=== PATIENT | female | born 1945 | race Caucasian/White ===

== ENCOUNTER 2020-11-01 09:09 | Outpatient (CLI) | payer MEDICARE, MEDICAID, SELFPAY | END 2020-11-01 09:10 | disposition home or self-care (01) | LOC: ANHBWCAUD 09:12 | DX: H91.93 Unspecified hearing loss, bilateral (principal) | CPT/HCPCS: 92557; 92567 ==

== ENCOUNTER 2020-12-06 09:12 | Outpatient (RCR) | payer MEDICAID, SELFPAY | END 2021-03-06 23:59 | disposition home or self-care (01) | LOC: ANHBWCAUD 09:12 | DX: Z46.1 Encounter for fitting and adjustment of hearing aid (principal) | CPT/HCPCS: V5160; V5260 ==

== ENCOUNTER 2021-12-23 09:21 | Outpatient (CLI) | payer MEDICARE, MEDICAID, SELFPAY | END 2021-12-23 09:22 | disposition home or self-care (01) | PROVIDERS: Visit Provider Family Medicine | DX: H90.3 Sensorineural hearing loss, bilateral (principal) | CPT/HCPCS: 92557; 92567 ==

== ENCOUNTER 2022-03-20 10:00 | Outpatient (RCR) | payer MEDICARE, MEDICAID, SELFPAY | END 2022-05-04 23:59 | disposition home or self-care (01) | LOC: ANHBWCAUD 10:00 | PROVIDERS: PCP Family Medicine; Visit Provider Family Medicine | DX: Z46.1 Encounter for fitting and adjustment of hearing aid (principal) | CPT/HCPCS: 99199 ==

== ENCOUNTER 2022-12-29 12:55 | Outpatient (CLI) | payer MEDICARE, MEDICAID, SELFPAY | END 2022-12-29 12:56 | disposition home or self-care (01) | LOC: ANHBWCAUD 12:58 | PROVIDERS: PCP Family Medicine; Visit Provider Family Medicine | DX: H90.3 Sensorineural hearing loss, bilateral (principal) | CPT/HCPCS: 92557; 92567 ==

== ENCOUNTER 2024-01-19 09:03 | Outpatient (CLI) | payer MEDICARE, MEDICAID, SELFPAY | END 2024-01-19 09:04 | disposition home or self-care (01) | LOC: ANHBWCAUD 09:04 | PROVIDERS: PCP Family Medicine; Visit Provider Family Medicine | DX: H91.93 Unspecified hearing loss, bilateral (principal) | CPT/HCPCS: 99199 ==

== ENCOUNTER 2024-03-08 08:28 | Outpatient (CLI) | payer MEDICARE, MEDICAID, SELFPAY | END 2024-03-08 08:29 | disposition home or self-care (01) | LOC: ANHBWCAUD 08:29 | PROVIDERS: PCP Family Medicine; Visit Provider Family Medicine | DX: H90.3 Sensorineural hearing loss, bilateral (principal); H61.23 Impacted cerumen, bilateral | CPT/HCPCS: 92557; 92567 ==

== ENCOUNTER 2025-03-13 09:03 | Outpatient (CLI) | payer MEDICARE, MEDICAID, SELFPAY ==
--- OUTSIDE RECORDS SUMMARY | 2025-03-13 09:15 | XMS_ITS | Referral Summary ---
Author Organization [facility] Address [address] [place] [address] Care Team Providers Care Business Process Engineer Name Role Phone Matthew Bansal MD Unavailable Norma Osorio NP Unavailable [phone] Allergies Active Allergy Reactions Criticality Noted Date Comments Lactose Medications amLODIPine (NORVASC) 10 mg tablet 1 Active UNABLE TO FIND Ear drops 6.5% qd Active escitalopram (LEXAPRO) 10 mg tablet Take 1 tablet (10 mg total) by mouth daily Active fluticasone propionate (FLONASE) 50 mcg/actuation nasal spray Administer 1 spray into each nostril daily Active dextromethorpha n-quiNIDine (NUEDEXTA) 20-10 mg capsuleIndicati ons:Pseudobulba r Affect 1 capsule Active valsartan-hydro chlorothiazide (DIOVAN-HCT) 320-25 mg per tablet Take 1 tablet by mouth daily Active cholecalciferol (VITAMIN D-3) 2000 unit capsule 1 capsule (2,000 Units total) Active acetaminophen (TYLENOL) 500 mg tabletIndicatio ns:Fever,Pain Take 1 tablet (500 mg total) by mouth every 4 (four) hours as needed for pain 30 tablet 2 2 Active guaiFENesin (ROBITUSSIN) syrup 100 mg/5 mLIndications:C ough Take 5 mL (100 mg total) by mouth 4 (four) times a day as needed for cough 120 mL 2 Active Additional Information Patient not taking.Reported on 08/17/2023 bacitracin-neom ycin-polymyxin B (NEOSPORIN) 400-3.5-5,000 jbnf-cb-hebm ointment in packetIndicatio ns:Minor Bacterial Skin Infections Apply pea size amount to affected area twice daily. 1 packet 1 2 Active Oyster Shell Calcium-Vit D3 500 mg-5 mcg (200 unit) per tablet 3 Active methIMAzole (TAPAZOLE) 5 mg tablet Take 5 mg 5 days a week Wednesday ,Wednesday, and wednesday tablet 3 3 Active Active Problems Problem Noted Date Diagnosed Date Flat foot 08/17/2023 Assessment & Plan (08/17/2023 12:13 PM INSTRUCTIONAL FACILITATOR): Bilateral feet, R>L. When walking without shoes her ankles invert, gait is steady despite this defect. No marked weakness on exam. Patient would benefit from custom shoe orthotics. Will fax OV over to [facility] in [place] who has already taken impressions of both feet. Medicare annual wellness visit, subsequent 07/30 Assessment & Plan (07/30/2023 12:01 PM CDT): Annual Medicare wellness exam completed today. All questionnaires completed and reviewed with patient. No Concerns. BMI:29.4 Overweight Dietary and exercise recommendations given Routine screening labs Reviewed Preventative screening ordered:May need Colon CA screen. Awaiting response Routine vaccines recommended: Flu, RSV, COVID booster Medications refilled Referrals placed prn Stage 3b chronic kidney disease 01/26/2023 Assessment & Plan (07/30/2023 12:02 PM CDT): Chronic and stable. Will continue to avoid NSAID use. Will continue to monitor this condition routinely and f/u with nephrology as instructed Assessment & Plan (01/26/2023 11:06 AM CDT): Chronic and stable. Will continue to avoid NSAID use. Will continue to monitor this condition routinely Recurrent major depressive disorder 01/26/2023 Assessment & Plan (01/26/2023 11:06 AM CDT): Chronic and stable. Will reach out to [facility] to determine if medication dosage was adjusted as this may be contributing to fatigue. Continue Lexapro 10 mg daily Fatigue 01/26/2023 Assessment & Plan (01/26/2023 11:08 AM CDT): Recent. Routine labs reviewed (thyroid normal, A1c 5.7, CBC stable) patient denies depressed mood or issues with sleep. Will continue to monitor for now. Recommend becoming involved with exercise activities at [facility] Lymphedema 07/22/2022 Assessment & Plan (07/22/2022 12:56 PM CDT): Chronic and stable. Continue with compression hose during the day. Will monitor routinely Essential hypertension 01/21/2022 Assessment & Plan (08/17/2023 12:14 PM INSTRUCTIONAL FACILITATOR): BP stable in office today on current therapy. No acute findings on exam. Continue current regimen and low salt diet. Assessment & Plan (07/30/2023 12:01 PM CDT): Chronic and stable. At goal < 130/80. Continue current medications and will monitor Assessment & Plan (01/26/2023 11:05 AM CDT): Chronic and stable. At goal < 130/80. Continue current medications and will monitor Assessment & Plan (07/22/2022 12:54 PM CDT): Chronic. SBP mildly elevated today. WNL during past visits. Goal <130/80. Will continue to monitor at f/u and adjust HTN medication if needed Assessment & Plan (01/21/2022 1:02 PM CDT): Chronic and stable. Continue current medication. Will continue to monitor Class 2 severe obesity due t o excess calories with serious comorbidity and body mass index (BMI) of 35.0 to 35.9 in adult 01/21/2022 Assessment & Plan (01/21/2022 1:05 PM CDT): Medicare wellness questions completed today and reviewed with patient. No Concerns. BMI: 35 Dietary and exercise recommendations given Mixed hyperlipidemia 01/21/2022 Assessment & Plan (07/22/2022 12:53 PM CDT): Chronic. Routine labs ordered. Will follow up lab results. No history of MD/Stroke. Will continue with lifestyle modifications. Assessment & Plan (01/21/2022 1:04 PM CDT): Chronic. Routine labs ordered. No history of MD/Stroke. Not recommended to start statin at this age. Will continue with lifestyle modifications. Counseled on diet/exercise. Nonintractable episodic headache 01/21/2022 Assessment & Plan (01/21/2022 1:07 PM CDT): Recurrent headache with no associated symptoms. PE WNL today -Trial Tylenol 500mg q6h prn symptoms -Consider [facility] log to help track frequency of symptoms - F/u if worsen Alzheimer's dementia without behavioral disturba nce 04/09/2021 Bradycardia 03/19/2021 Weight gain 08/19/2020 Assessment & Plan (08/19/2020 12:20 PM INSTRUCTIONAL FACILITATOR): Diet and exercise 1800 calorie diet ordered Depression 01/18/2019 Mild intellectual disability 01/18/2019 Vitamin D deficiency 11/17/2017 Assessment & Plan (07/30/2023 12:01 PM CDT): Chronic and stable. Continue current medication. Lab reviewed. Will continue to monitor Assessment & Plan (11/11/2022 2:13 PM INSTRUCTIONAL FACILITATOR): Chronic stable problem. Continue same dose vitamin D replacement. Assessment & Plan (07/22/2022 12:53 PM CDT): Chronic and stable. Continue current medication. Will obtain lab and adjust meds prn Assessment & Plan (01/21/2022 1:02 PM CDT): Chronic and stable. Continue current medication. Will obtain lab and adjust meds prn Assessment & Plan (08/20/2021 12:14 PM INSTRUCTIONAL FACILITATOR): Will check vit D Will advise on changes to vit D doses if indicated Assessment & Plan (02/17/2021 12:55 PM CDT): Continue 1000 international units daily Assessment & Plan (02/22/2020 11:07 AM CDT): Continue Ca and vit D at current dose, bid Assessment & Plan (05/27/2018 10:34 AM CDT): Continue Calcium and vit D at current dose. Assessment & Plan (11/17/2017 10:34 AM INSTRUCTIONAL FACILITATOR): Check 25 OH vit D Adjust dose of vit D if indicated Subclinical hyperthyroidism 07/07/2017 Assessment & Plan (07/30/2023 12:01 PM CDT): Chronic and stable. Patient will continue to follow with endocrinology for management of this condition Assessment & Plan (01/26/2023 11:06 AM CDT): Chronic and stable. Patient will continue to follow with endocrinology for management of this condition Assessment & Plan (11/11/2022 2:14 PM INSTRUCTIONAL FACILITATOR): Chronic stable problem, update TFTs today. Will call with medication changes if needed. Assessment & Plan (07/22/2022 12:53 PM CDT): Chronic and stable. Continue current medication. Will obtain lab and adjust meds prn Assessment & Plan (01/21/2022 1:04 PM CDT): Chronic and stable. Continue current medication. Will obtain lab and adjust meds prn Assessment & Plan (08/20/2021 12:02 PM INSTRUCTIONAL FACILITATOR): Check TFT's Will adjust dose of Tapazole if indicated. Assessment & Plan (02/17/2021 12:15 PM CDT): Continue Tapazole, 5 mg 4 days a week, Wednesday thru . Assessment & Plan (08/19/2020 12:19 PM INSTRUCTIONAL FACILITATOR): Continue Tapazole 5 mg 4 days a week Assessment & Plan (02/22/2020 11:06 AM CDT): Continue Tapazole 5 mg 4 days a week - Assessment & Plan (08/03/2019 11:53 AM CDT): Continue Tapazole 5 mg 4 days a week Assessment & Plan (12/05/2018 12:54 PM INSTRUCTIONAL FACILITATOR): Continue with tapazole 5 mg 4 days a week Assessment & Plan (05/27/2018 10:32 AM CDT): Lower Tapazole to 5 mg 4 days a week, Wednesday thru . Assessment & Plan (11/17/2017 10:28 AM INSTRUCTIONAL FACILITATOR): Will check TFT's today Will call if any changes on Tapazole are indicated Follow up in 6 m, Assessment & Plan (07/07/2017 12:13 PM CDT): Check TFT;s Adjust dose of Tapazole accordingly Recheck TFT's in 2 months Osteopenia 07/07/2017 Assessment & Plan (11/11/2022 2:14 PM INSTRUCTIONAL FACILITATOR): Chronic stable problem. Staff will check on her last bone density scan. Assessment & Plan (08/20/2021 12:02 PM INSTRUCTIONAL FACILITATOR): Continue with vit D and Calcium supplementation Weight bearing exercise Fall precautions Assessment & Plan (02/17/2021 12:15 PM CDT): Stop Fosamax Assessment & Plan (08/19/2020 12:19 PM INSTRUCTIONAL FACILITATOR): Continue Fosamax DEXA requested Assessment & Plan (02/22/2020 11:07 AM CDT): Some improvement Continue Fosamax once a week Assessment & Plan (08/03/2019 11:52 AM CDT): Continue Fosamax Bone density requested Assessment & Plan (12/05/2018 12:55 PM INSTRUCTIONAL FACILITATOR): On Fosamax Adequate Vit D and Ca intake recommended. Will schedule bone density Assessment & Plan (05/27/2018 10:34 AM CDT): Continue Fosamax 70 mg once a week Fall precautions Daily walks 15-30 min Continue current Calcium and vit D supplements. Assessment & Plan (11/17/2017 10:34 AM INSTRUCTIONAL FACILITATOR): Continue Fosamax Fall precautions Vit D/ Ca intake Will check vit D Levels. Assessment & Plan (07/07/2017 12:10 PM CDT): Continue Fosamax CaC03 , 500 mg bid Vit D, 1000 IU daily Check 25 OH vit D levels Resolved Problems Problem Noted Date Diagnosed Date Resolved Date Subclinical hypothyroidism 01/21/2022 0 01/21/2022 Immunizations Immunization Administration Dates Next Due Influenza, Quadrivalent, Spl it, Preservative Free, Intramuscular 08/12/2020 Influenza, Trivalent, IM (MDV) 07/24/2017 Influenza, Unspecified 08/05/2023 Pfizer Sars-Cov-2 Bivalent Vaccination (12+ YRS) 07/09/2022 Tdap 09/22/2019,10/11/2012 Social History Tobacco Use Types Packs/Day Years Used Date Smoking Tobacco: Never Smokeless Tobacco: Never Tobacco Cessation:Counseling Given: Not Answered Alcohol Use Standard Drinks/Week Comments No 0 (1 standard drink = 0.6 oz pur e alcohol) PHQ-2 Answer Date Recorded PHQ-2 Total Score (If total score is 3 or more points, staff should administer the PHQ-9) 0 07/30/2023 Personal Safety Answer Date Recorded Getting School Help Needed Not on file 09/21 Comments Unknown Sex and Gender Information Value Date Recorded Sex Assigned at Not on file Legal Sex Female 3:53 AM INSTRUCTIONAL FACILITATOR Gender Identity Not on file Sexual Orientation Not on file Last Filed Vital Signs Vital Sign Reading Time Taken Comments Blood Pressure 112/60 08/17/2023 10:56 AM INSTRUCTIONAL FACILITATOR Pulse 60 08/17/2023 10:56 AM INSTRUCTIONAL FACILITATOR Temperature 36.4 C (97.5 F) 08/17/2023 10:56 AM INSTRUCTIONAL FACILITATOR Respiratory Rate 18 08/17/2023 10:56 AM INSTRUCTIONAL FACILITATOR Oxygen Saturation 97% 08/17/2023 10:56 AM INSTRUCTIONAL FACILITATOR Inhaled Oxygen Concentration - - Weight 74.8 kg (165 lb) 08/17/2023 10:56 AM INSTRUCTIONAL FACILITATOR Height 160 cm (5' 2.99) 07/30/2023 11:07 AM CDT Body Mass Index 29.24 07/30/2023 11:07 AM CDT Plan of Treatment Not on file Procedures Procedure Name Priority Date/Time Associated Diagnosis Comments DEXA AXIAL SKELETON BONE DENSITY 1 OR MORE SITES Schedule Routine, Read Routine (OP Routine) 02/18/2023 10:10 AM CDT Vitamin D deficiency Osteopenia of left hip SCREENING MAMMOGRAM BILATERAL W DANIEL Schedule Routine, Read Routine (OP Routine) 05/08/2019 9:39 AM CDT Encounter for screening mammogram for malignant neoplasm of breast COLONOSCOPY REPORT 03/03/2016 from Last 3 Months or Most Recently Relevant to Health Maintenance Results * Dexa Axial Skeleton Bone Density 1 or 2 Site (02/18/2023 10:10 AM CDT) Anatomical Region Laterality Modality Body N/A Other 02/18/2023 9:40 PM CDT Narrative 02/18/2023 9:42 PM CDT EXAM DESCRIPTION: DEXA AXIAL SKELETON BONE DENSITY 1 OR MORE SITES REASON FOR STUDY: 77 y/o year old F with given history of screening. Postmenopausal Side Boss/Model: [employer] (S/N [id number]) CLINICAL INFORMATION: Current height: 61 inches Maximum height: 61 inches Weight: 179 pounds Risk factors: Postmenopausal, adult fracture COMPARISON: 02/01/2017 FINDINGS: AP LUMBAR SPINE L1-L4: Total BMD is 1.046 g/cm2 T-score is 0.0 Dissimilar scan types or analysis methods precludes assessment for calculating a significant change. LEFT HIP: Total BMD is 0.738 g/cm2 T-score is -1.7 Dissimilar scan types or analysis methods precludes assessment for calculating a significant change. Femoral neck BMD is 0.717 g/cm2 T-score is -1.2 FRAX: 10 year risk for a major osteoporotic fracture is 15 %, 10 year risk for a hip fracture is 2.3 % IMPRESSION: Low Bone Mass. REFERENCE: Bone mineral density: Normal (T-score above or = -1.0) Low bone mass (T-score between -1.0 and -2.5) replaces the previously used term osteopenia Osteoporosis (T-score = or below -2.5) Medical evaluation for secondary causes of low bone mineral density may be appropriate. FRAX is a World Health Organization validated fracture risk assessment tool that calculates a person's 10 year probability of a major osteoporosis related fracture and hip fracture. According to the National Osteoporosis Foundation guidelines, postmenopausal women and men age 50 or older with low bone mass and a 10 year probability of a major osteoporosis related fracture = or greater than 20% or a 10 year probability of a hip fracture = or greater than 3% should be considered for treatment. For further information, including treatment recommendations, please refer to the 2019 ISCD Official Positions (http://www.iscd.org) and the NOF's Clinician's Guide to Prevention and Treatment of Osteoporosis (http://www.nof.org/professionals/clinical-guidelines) THIS IS AN ELECTRONICALLY VERIFIED FINAL REPORT 02/18/2023 9:42 PM - Electronically signed by Jamison Nolasco M.D. MF: CHENG Report ID: [id number] Reading Location: [place] [address] Procedure Note Jamison Nolasco MD - 02/18/2023 EXAM DESCRIPTION: DEXA AXIAL SKELETON BONE DENSITY 1 OR MORE SITES REASON FOR STUDY: 77 y/o year old F with given history of screening. Postmenopausal Side Boss/Model: [employer] (S/N [id number]) CLINICAL INFORMATION: Current height: 61 inches Maximum height: 61 inches Weight: 179 pounds Risk factors: Postmenopausal, adult fracture COMPARISON: 02/01/2017 FINDINGS: AP LUMBAR SPINE L1-L4: Total BMD is 1.046 g/cm2 T-score is 0.0 Dissimilar scan types or analysis methods precludes assessment for calculating a significant change. LEFT HIP: Total BMD is 0.738 g/cm2 T-score is -1.7 Dissimilar scan types or analysis methods precludes assessment for calculating a significant change. Femoral neck BMD is 0.717 g/cm2 T-score is -1.2 FRAX: 10 year risk for a major osteoporotic fracture is 15 %, 10 year risk for ahip fracture is 2.3 % IMPRESSION: Low Bone Mass. REFERENCE: Bone mineral density: Normal (T-score above or = -1.0) Low bone mass (T-score between -1.0 and -2.5) replaces thepreviously used term osteopenia Osteoporosis (T-score = or below -2.5) Medical evaluation for secondary causes of low bone mineral density may be appropriate. FRAX is a World Health Organization validated fracture risk assessmenttool that calculates a person's 10 year probability of a major osteoporosisrelated fracture and hip fracture. According to the National OsteoporosisFoundation guidelines, postmenopausal women and men age 50 or older with low bonemass and a 10 year probability of a major osteoporosis related fracture = or greater than 20% or a 10 year probability of a hip fracture = or greaterthan 3% should be considered for treatment. For further information, including treatment recommendations, please referto the 2019 ISCD Official Positions (http://www.iscd.org) and the NOF's Clinician's Guide to Prevention and Treatment of Osteoporosis (http://www.nof.org/professionals/clinical-guidelines) THIS IS AN ELECTRONICALLY VERIFIED FINAL REPORT 02/18/2023 9:42 PM - Electronically signed by Jamison Nolasco M.D. MF: CHENG Report ID: [id number] Reading Location: [id number] Evette Melo MD IMG DXA PROCEDURES Final Res ult * Screening Mammogram Bilateral W Daniel (05/08/2019 9:39 AM CDT) Anatomical Region Laterality Modality Breast Bilateral Mammography 05/08/2019 9:42 AM CDT Impressions 05/08/2019 9:45 AM CDT 1. NO DEFINITIVE MAMMOGRAPHIC EVIDENCE OF MALIGNANCY 2. ANNUAL FOLLOW-UP RECOMMENDED BI-RADS 2 Electronically signed by: Emanuel Peterson M.D. Narrative 05/08/2019 9:45 AM CDT SCREENING MAMMOGRAM BILATERAL W DANIEL HISTORY: Encounter for screening mammogram for malignant neoplasm of breast TECHNIQUE: 2 views of each breast were obtained with bilateral breast tomosynthesis. COMPARISON: Dating back to 03/06/2015 FINDINGS: The breasts are composed of scattered fibroglandular densities. No suspicious mass or calcification is seen to suggest mammographic evidence of malignancy. There are bilateral benign breast calcifications. Digital technology was employed plus computer aided detection software (R2) was utilized in interpretation of these images. This facility utilizes a reminder system to notify patient's of yearly mammograms. Trupti Spence MD IMG MAMMO PROCEDURES Final R esult * COLONOSCOPY REPORT (03/03/2016) Anatomical Region Laterality Modality Other Narrative 03/03/2016 Ordered by an unspecified provider. Historical Provider GI PROCEDURE ORDERABLES F inal Result from Last 3 Months or Most Recently Relevant to Health Maintenance Insurance MEDICARE IDNM IDPA MEDICARE Care Teams Business Process Engineer Relationship Specialty [place] [address] [address] [facility] [address] [place] [address] Consulting Physician Endocrinology Diabetes & Metabolism 12/05/18 [place] [address] [address] [facility] [address] [place] [address] Nurse Practitioner Internal Medicine 12/05/18
--- OUTSIDE RECORDS SUMMARY | 2025-03-13 09:15 | XMS_ITS | Clinical Summary ---
Author Organization [facility] Address [address] [place] [address] Care Team Providers Care Mineralogy Teacher Name Role Phone Matthew Bansal MD Unavailable Norma Osorio NP Unavailable [phone] Allergies Active Allergy Reactions Criticality Noted Date [...] on 08/17/2023 bacitracin-neom ycin-polymyxin B (NEOSPORIN) 400-3.5-5,000 wjhy-uf-prol ointment in packetIndicatio ns:Minor Bacterial Skin Infections [...] 08/17/2023 Assessment & Plan (08/17/2023 12:13 PM DROP WIRE HANGER): Bilateral feet, R>L. When walking without shoes her ankles invert, gait is steady despite this defect. No marked weakness on exam. Patient would benefit from custom shoe orthotics. Will fax OV over to [facility] in [place] who has already taken impressions of both [...] Chronic and stable. Will reach out to [facility] to determine if medication dosage was adjusted as this may be contributing to fatigue. Continue Lexapro 10 mg daily Fatigue 01/26/2023 Assessment & Plan (01/26/2023 11:08 AM CDT): Recent. Routine labs reviewed (thyroid normal, A1c 5.7, CBC stable) patient denies depressed mood or issues with sleep. Will continue to monitor for now. Recommend becoming involved with exercise activities at [facility] Lymphedema 07/22/2022 Assessment & Plan (07/22/2022 12:56 PM CDT): Chronic and stable. Continue with compression hose during the day. Will monitor routinely Essential hypertension 01/21/2022 Assessment & Plan (08/17/2023 12:14 PM DROP WIRE HANGER): BP stable in office today on current [...] follow up lab results. No history of NM/Stroke. Will continue with lifestyle modifications. Assessment & Plan (01/21/2022 1:04 PM CDT): Chronic. Routine labs ordered. No history of NM/Stroke. Not recommended to start statin at this [...] 08/19/2020 Assessment & Plan (08/19/2020 12:20 PM DROP WIRE HANGER): Diet and exercise 1800 calorie diet ordered Depression 01/18/2019 Mild intellectual disability 01/18/2019 Vitamin D deficiency 11/17/2017 Assessment & Plan (07/30/2023 12:01 PM CDT): Chronic and stable. Continue current medication. Lab reviewed. Will continue to monitor Assessment & Plan (11/11/2022 2:13 PM DROP WIRE HANGER): Chronic stable problem. Continue same dose vitamin D replacement. Assessment & Plan (07/22/2022 12:53 PM CDT): Chronic and stable. Continue current medication. Will obtain lab and adjust meds prn Assessment & Plan (01/21/2022 1:02 PM CDT): Chronic and stable. Continue current medication. Will obtain lab and adjust meds prn Assessment & Plan (08/20/2021 12:14 PM DROP WIRE HANGER): Will check vit D Will advise on changes to vit D doses if indicated Assessment & Plan (02/17/2021 12:55 PM CDT): Continue 1000 international units daily Assessment & Plan (02/22/2020 11:07 AM CDT): Continue Ca and vit D at current dose, bid Assessment & Plan (05/27/2018 10:34 AM CDT): Continue Calcium and vit D at current dose. Assessment & Plan (11/17/2017 10:34 AM DROP WIRE HANGER): Check 25 OH vit D Adjust dose [...] condition Assessment & Plan (11/11/2022 2:14 PM DROP WIRE HANGER): Chronic stable problem, update TFTs today. Will call with medication changes if needed. Assessment & Plan (07/22/2022 12:53 PM CDT): Chronic and stable. Continue current medication. Will obtain lab and adjust meds prn Assessment & Plan (01/21/2022 1:04 PM CDT): Chronic and stable. Continue current medication. Will obtain lab and adjust meds prn Assessment & Plan (08/20/2021 12:02 PM DROP WIRE HANGER): Check TFT's Will adjust dose of Tapazole if indicated. Assessment & Plan (02/17/2021 12:15 PM CDT): Continue Tapazole, 5 mg 4 days a week, Wednesday thru . Assessment & Plan (08/19/2020 12:19 PM DROP WIRE HANGER): Continue Tapazole 5 mg 4 days a week Assessment & Plan (02/22/2020 11:06 AM CDT): Continue Tapazole 5 mg 4 days a week - Assessment & Plan (08/03/2019 11:53 AM CDT): Continue Tapazole 5 mg 4 days a week Assessment & Plan (12/05/2018 12:54 PM DROP WIRE HANGER): Continue with tapazole 5 mg 4 days a week Assessment & Plan (05/27/2018 10:32 AM CDT): Lower Tapazole to 5 mg 4 days a week, Wednesday thru . Assessment & Plan (11/17/2017 10:28 AM DROP WIRE HANGER): Will check TFT's today Will call if any changes on Tapazole are indicated Follow up in 6 m, Assessment & Plan (07/07/2017 12:13 PM CDT): Check TFT;s Adjust dose of Tapazole accordingly Recheck TFT's in 2 months Osteopenia 07/07/2017 Assessment & Plan (11/11/2022 2:14 PM DROP WIRE HANGER): Chronic stable problem. Staff will check on her last bone density scan. Assessment & Plan (08/20/2021 12:02 PM DROP WIRE HANGER): Continue with vit D and Calcium supplementation Weight bearing exercise Fall precautions Assessment & Plan (02/17/2021 12:15 PM CDT): Stop Fosamax Assessment & Plan (08/19/2020 12:19 PM DROP WIRE HANGER): Continue Fosamax DEXA requested Assessment & Plan (02/22/2020 11:07 AM CDT): Some improvement Continue Fosamax once a week Assessment & Plan (08/03/2019 11:52 AM CDT): Continue Fosamax Bone density requested Assessment & Plan (12/05/2018 12:55 PM DROP WIRE HANGER): On Fosamax Adequate Vit D and Ca intake recommended. Will schedule bone density Assessment & Plan (05/27/2018 10:34 AM CDT): Continue Fosamax 70 mg once a week Fall precautions Daily walks 15-30 min Continue current Calcium and vit D supplements. Assessment & Plan (11/17/2017 10:34 AM DROP WIRE HANGER): Continue Fosamax Fall precautions Vit D/ Ca [...] Bivalent Vaccination (12+ YRS) 07/09/2022 Tdap 09/22/2019,10/11/2012 Medical History Medical History Date Comments Hypertension Hypertension Hyperlipidemia Hyperlipidemia Depression Depression Social History Tobacco Use Types Packs/Day Years [...] on file Legal Sex Female 3:53 AM DROP WIRE HANGER Gender Identity Not on file Sexual Orientation Not on file Obstetrics History Last Filed Vital Signs Vital Sign Reading Time Taken Comments Blood Pressure 112/60 08/17/2023 10:56 AM DROP WIRE HANGER Pulse 60 08/17/2023 10:56 AM DROP WIRE HANGER Temperature 36.4 C (97.5 F) 08/17/2023 10:56 AM DROP WIRE HANGER Respiratory Rate 18 08/17/2023 10:56 AM DROP WIRE HANGER Oxygen Saturation 97% 08/17/2023 10:56 AM DROP WIRE HANGER Inhaled Oxygen Concentration - - Weight 74.8 kg (165 lb) 08/17/2023 10:56 AM DROP WIRE HANGER Height 160 cm (5' 2.99) 07/30/2023 11:07 AM CDT Body Mass Index 29.24 07/30/2023 11:07 AM CDT Plan of Treatment Health Maintenance Due Date Last Done Comments Hepatitis B Screening 1963 Zoster Vaccine (1 of 2) 1997 Covid-19 Vaccine (2023-11 5 season) 2024 07/09/2022, 08/15/2021, 12/13/2020, Additional history exists Depression Screening 07/30/2024 07/30/2023, 01/21/2022, 08/20/2021, Additional history exists Fall Risk Assessment 07/30/2024 07/30/2023, 01/22/20 22 Well Visit 65+ 07/30/2024 07/30/2023 Influenza Vaccine (Season Ended) 2025 08/05/2023, 08/12/2020, 07/24/2017 Osteoporosis Screening-Bone Density Scan 09/14/2025 09/14/2023, 09/14/2023, 09/14/2023, Additional history exists DTaP/Tdap/Td Vaccine (3 - Td or Tdap) 09/22/2029 09/22/2019, 10/11/2012 Pneumococcal vaccine 65+ Completed 11/27/2009 Colon Cancer Screening-CT Colonography Discontinued 03/03/2016 Colon Cancer Screening-Colonoscopy Discontinued 03/03/2016 Colon Cancer Screening-DNA Stool Discontinued 03/03/20 16 Colon Cancer Screening-FIT Discontinued 03/03/2016 Colon Cancer Screening-FOBT Discontinued 03/03/2016 Colon Cancer Screening-Sigmoidoscopy Discontinued 03/03/2016 Colorectal Cancer Screening Discontinued Hepatitis C Screening Completed 08/18/2023 Breast Cancer Screening-Mammogram Discontinued 04/19/2024, 04/19/2024, 01/20/2023, Additional history exists Procedures Procedure Name Priority Date/Time Associated Diagnosis [...] F with given history of screening. Postmenopausal Cut Out Operator/Model: [employer] SL (S/N [id number]) CLINICAL INFORMATION: Current height: 61 inches Maximum [...] Jamison Nolasco M.D. MF: CHENG Report ID: [id number] Reading Location: [place] [address] Procedure Note Jamison Nolasco MD - 02/18/2023 EXAM DESCRIPTION: DEXA AXIAL SKELETON BONE DENSITY 1 OR MORE SITES REASON FOR STUDY: 77 y/o year old F with given history of screening. Postmenopausal Cut Out Operator/Model: [employer] SL (S/N [id number]) CLINICAL INFORMATION: Current height: 61 inches Maximum [...] Jamison Nolasco M.D. MF: CHENG Report ID: [id number] Reading Location: [place] [address] Evette Melo MD IMG DXA PROCEDURES Final [...] Recently Relevant to Health Maintenance Insurance MEDICARE [employer] [facility] MEDICARE [facility] Address: [address] [address] [place] [address] Care Teams Mineralogy Teacher Relationship Specialty [place] [address] [facility] [address] [address] Consulting Physician Endocrinology Diabetes & Metabolism 12/05/18 [place] [address] [facility] [address] [place] [address] Nurse Practitioner Internal Medicine 12/05/18
--- OUTSIDE RECORDS SUMMARY | 2025-03-13 09:16 | XMS_ITS | Encounter Summary ---
Author Organization [facility] Address [address] [place] [address] Phone Care Team Providers Care Car Starter Name Role Phone Trupti Spence MD Primary Care Provider Provider, Unknown Primary Care Provider Unavaila Evette Persaud MD Primary Care Provider Unavailable Norma May MD Primary Care Provider Meryl Martinez APRN, SCREEN HANDLER Unavailable [phone] Encounter Details Date Type Department Care Team (Late st Contact Info) Description 12/24/2021 Lab Requisition [facility] Laboratory Services [address] [place] [address] Louie Purdy MD [address] [place] [address] [address] [place] [address] Encounter for screening for COVID-19 Social History Tobacco Use Types Packs/Day Years Used Date Smoking Tobacco: Never Smokeless Tobacco: Never Alcohol Use Standard Drinks/Week Comments No 0 (1 standard drink = 0.6 oz pur e alcohol) Comments No Sex and Gender Information Value Date Recorded Sex Assigned at Not on file Legal Sex Female 8:58 PM CDT Gender Identity Not on file Sexual Orientation Not on file documented as of this encounter Plan of Treatment Upcoming Encounters Date Type Department Care Team (Late st Contact Info) Description 07/24/2025 11:00 AM CDT Office Visit [facility] - Cardiology [facility] [address] [place] [address] Liss Jo APRN, SCREEN HANDLER [address] [place] [address] documented as of this encounter Procedures Procedure Name Priority Date/Time Associated Diagnosis Comments SARS-COV-2 BY MOLECULAR Routine 12/24/2021 8:04 AM CDT Encounter for screening for COVID-19 documented in this encounter Results * SARS-COV-2 BY MOLECULAR (12/24/2021 8:04 AM CDT) SARSCOV2 NOT DETECTED (Referen ce Range for this test is Not Detected ) [facility] THERMOFISHER FAST DX 12/24/2021 11:53 PM CDT [facility] Comment:This test was perfor med by a RT-PCR method. Other Non-Phlebotomy Collection / Unknown 12/24/2021 8:04 AM CDT 12/24/2021 1:12 PM CDT Narrative [facility] - 12/24/2021 11:53 PM CDT Authorized Fact Sheets about this test for providers and patients are available at: https://www.fda.gov/medical-devices/wwdjdowph-iadqjybqre-hfpezaq-devices/emergen -us e-authorizations us Louie Purdy MD MICROBIOLOGY - GENERAL ORDERAB LES Final Result [facility] [address] [facility] [place] [address], documented in this encounter Visit Diagnoses Diagnosis Encounter for screening for COVID-19 documented in this encounter Additional Health Concerns Infection Onset Date Last Indicated Resolved Time COVID - 19 07/02/2021 04/08/2022 04/08/2022 11:4 5 PM CDT COVID - 19 Confirmed 04/08/2022 04/08/202204/28/2 022 12:16 AM CDT COVID - 19 04/29/2022 06/03/2022 06/13/2022 12:1 6 AM CDT COVID - 19 06/17/2022 06/17/2022 06/27/2022 12:1 6 AM CDT COVID - 19 07/01/2022 08/19/2022 08/29/2022 12:1 6 AM UNDERWATER PHOTOGRAPHER COVID - 19 10/07/2022 12/23/2022 01/02/2023 12:1 6 AM CDT documented as of this encounter Care Teams Car Starter Relationship Specialty Start Date End Date Trupti Spence MD PCP - General Family Medicine 02/19/16 11/23/22 Provider, Unknown UNKNOWN PCP - General 11/25/22 12/03/22 Evette Melo MD UNKNOWN PCP - General Family Medicine 12/04/22 04/12/24 Norma May MD [address] [place] [address] PCP - General Family Medicine 04/13/24 Meryl Martinez APRN, SCREEN HANDLER [address] [facility], [address] [place] [address] Nurse Practitioner Cardiology 07/25/24 documented as of this encounter
--- OUTSIDE RECORDS SUMMARY | 2025-03-13 09:16 | XMS_ITS | Encounter Summary ---
Author Organization [facility] Address [address] [place] [address] Phone Care Team Providers Care Car Bracer Name Role Phone Trupti Spence MD Primary Care Provider Provider, Unknown Primary Care Provider Unavaila Evette Persaud MD Primary Care Provider Unavailable Norma May MD Primary Care Provider Meryl Martinez APRN, PIT CREW SUPPORT WORKER Unavailable [phone] Encounter Details Date Type Department Care Team (Late st Contact Info) Description 05/20/2022 Lab Requisition [facility] Laboratory Services [address] [place] [address] Louie Purdy MD [address] [place] [address] [address] [place] [address] Encounter for screening for COVID-19 Social History [...] Office Visit [facility] - Cardiology [facility] [address] [place] [address] Liss Jo APRN, PIT CREW SUPPORT WORKER [address] [place] [address] documented as of this encounter Procedures Procedure Name Priority Date/Time Associated Diagnosis Comments SARS-COV-2 BY MOLECULAR Routine 05/20/2022 7:50 AM CDT Encounter for screening for COVID-19 documented in this encounter Results * SARS-COV-2 BY MOLECULAR (05/20/2022 7:50 AM CDT) SARSCOV2 NOT DETECTED (Referen ce Range for this test is Not Detected ) [facility] THERMOFISHER FAST DX 05/21/2022 10:30 AM CDT [facility] Comment:This test was perfor med by a RT-PCR method. Other No Phlebotomy Charged / Unknown 05/20/2022 7:50 AM CDT 05/20/2022 11:18 AM CDT Narrative [facility] - 05/21/2022 10:30 AM CDT Authorized Fact Sheets about this test for providers and patients are available at: https://www.fda.gov/medical-devices/ajohbjodt-emewytfriv-silccox-devices/emergen -us e-authorizations us Louie Purdy MD MICROBIOLOGY - GENERAL ORDERAB LES Final Result [facility] [address] [place] [address], documented in this encounter Visit Diagnoses Diagnosis Encounter for screening for COVID-19 documented in this encounter Additional Health Concerns Infection Onset Date Last Indicated Resolved Time COVID - 19 04/29/2022 06/03/2022 06/13/2022 12:1 6 AM CDT COVID - 19 06/17/2022 06/17/2022 06/27/2022 12:1 6 AM CDT COVID - 19 07/01/2022 08/19/2022 08/29/2022 12:1 6 AM SMALL BUSINESS REPRESENTATIVE COVID - 19 10/07/2022 12/23/2022 01/02/2023 12:1 6 AM CDT documented as of this encounter Care Teams Car Bracer Relationship Specialty Start Date End Date Trupti Spence MD PCP - General Family Medicine 02/19/16 11/23/22 Provider, Unknown UNKNOWN PCP - General 11/25/22 12/03/22 Evette Melo MD UNKNOWN PCP - General Family Medicine 12/04/22 04/12/24 Norma May MD [address] [place] [address] PCP - General Family Medicine 04/13/24 Meryl Martinez APRN, PIT CREW SUPPORT WORKER [address] [facility], [address] [place] [address] Nurse Practitioner Cardiology 07/25/24 documented as of this encounter
--- OUTSIDE RECORDS SUMMARY | 2025-03-13 09:16 | XMS_ITS | Encounter Summary ---
Author Organization [facility] Address [address] [place] [address] Phone Care Team Providers Care Warranty Clerk Name Role Phone Trupti Spence MD Primary Care Provider Provider, Unknown Primary Care Provider Unavaila Evette Persaud MD Primary Care Provider Unavailable Norma May MD Primary Care Provider Meryl Martinez APRN, GAS MAIN FITTER Unavailable [phone]- [phone] Encounter Details Date Type Department Care Team (Late st Contact Info) Description 07/08/2022 Lab Requisition [facility] Laboratory Services [address] [place] [address] Louie Purdy MD [address] [place] [address] [address] [place] [address] Encounter for screening for COVID-19 Social History [...] Office Visit [facility] - Cardiology [facility] #[address] [place] [address] Liss Jo APRN, GAS MAIN FITTER [address] [place] [address] documented as of this encounter Procedures Procedure Name Priority Date/Time Associated Diagnosis Comments SARS-COV-2 BY MOLECULAR Routine 07/08/2022 8:33 AM CDT Encounter for screening for COVID-19 documented in this encounter Results * SARS-COV-2 BY MOLECULAR (07/08/2022 8:33 AM CDT) SARSCOV2 NOT DETECTED (Referen ce Range for this test is Not Detected ) [facility] THERMOFISHER FAST DX 07/09/2022 12:09 AM CDT [facility] Comment:This test was perfor med by a RT-PCR method. Other Non-Phlebotomy Collection / Unknown 07/08/2022 8:33 AM CDT 07/08/2022 11:59 AM CDT Narrative [facility] - 07/09/2022 12:09 AM CDT Authorized Fact Sheets about this test for providers and patients are available at: https://www.fda.gov/medical-devices/vonpxnqys-afnukglnja-yczvsuq-devices/emergen -us e-authorizations us Louie Purdy MD MICROBIOLOGY - GENERAL ORDERAB LES Final Result [facility] [address] [facility] [place] [address], documented in this encounter Visit Diagnoses Diagnosis Encounter for screening for COVID-19 documented in this encounter Additional Health Concerns Infection Onset Date Last Indicated Resolved Time COVID - 19 07/01/2022 08/19/2022 08/29/2022 12:1 6 AM FINANCIAL SERVICES SALES REPRESENTATIVE COVID - 19 10/07/2022 12/23/2022 01/02/2023 12:1 6 AM CDT documented as of this encounter Care Teams Warranty Clerk Relationship Specialty Start Date End Date Trupti Spence MD PCP - General Family Medicine 02/19/16 11/23/22 Provider, Unknown UNKNOWN PCP - General 11/25/22 12/03/22 Evette Melo MD UNKNOWN PCP - General Family Medicine 12/04/22 04/12/24 Norma May MD [address] [place] [address] PCP - General Family Medicine 04/13/24 Meryl Martinez APRN, GAS MAIN FITTER [address] [facility], [address] [place] [address] Nurse Practitioner Cardiology 07/25/24 documented as of this encounter
--- OUTSIDE RECORDS SUMMARY | 2025-03-13 09:16 | XMS_ITS | Encounter Summary ---
Author Organization [facility] Address [address] [place] [address] Phone Care Team Providers Care Solar Power Installer Name Role Phone Trupti Spence MD Primary Care Provider Provider, Unknown Primary Care Provider Unavaila Evette Persaud MD Primary Care Provider Unavailable Norma May MD Primary Care Provider Meryl Martinez APRN, EXTRACT OPERATOR Unavailable [phone]- [phone] Encounter Details Date Type Department Care Team (Late st Contact Info) Description 05/27/2022 Lab Requisition [facility] Laboratory Services [address] [place] [address] Louie Purdy MD [address] [place] [address] [address] [place] [address] Encounter for screening for COVID-19 Social History [...] Office Visit [facility] - Cardiology [facility] [address] [place] [phone] Liss Jo APRN, EXTRACT OPERATOR [address] [place] [address] documented as of this encounter Procedures Procedure Name Priority Date/Time Associated Diagnosis Comments SARS-COV-2 BY MOLECULAR Routine 05/27/2022 8:22 AM CDT documented in this encounter Results * SARS-COV-2 BY MOLECULAR (05/27/2022 8:22 AM CDT) SARSCOV2 NOT DETECTED (Referen ce Range for this test is Not Detected ) [facility] THERMOFISHER FAST DX 05/28/2022 8:15 AM CDT [facility] Comment:This test was perfor med by a RT-PCR method. Other Non-Phlebotomy Collection / Unknown 05/27/2022 8:22 AM CDT 05/27/2022 12:57 PM CDT Narrative [facility] - 05/28/2022 8:15 AM CDT Authorized Fact Sheets about this test for providers and patients are available at: https://www.fda.gov/medical-devices/uozwesjhv-taxzooepdy-xilbsll-devices/emergen cy-us e-authorizations us Louie Purdy MD MICROBIOLOGY - GENERAL ORDERAB LES Final Result [facility] [address] [place] [address], documented in this encounter Visit Diagnoses Diagnosis Encounter for screening for COVID-19 documented in this encounter Additional Health Concerns Infection Onset Date Last Indicated Resolved Time COVID - 19 04/29/2022 06/03/2022 06/13/2022 12:1 6 AM CDT COVID - 19 06/17/2022 06/17/2022 06/27/2022 12:1 6 AM CDT COVID - 19 07/01/2022 08/19/2022 08/29/2022 12:1 6 AM BURRING MACHINE OPERATOR COVID - 19 10/07/2022 12/23/2022 01/02/2023 12:1 6 AM CDT documented as of this encounter Care Teams Solar Power Installer Relationship Specialty Start Date End Date Trupti Spence MD PCP - General Family Medicine 02/19/16 11/23/22 Provider, Unknown UNKNOWN PCP - General 11/25/22 12/03/22 Evette Melo MD UNKNOWN PCP - General Family Medicine 12/04/22 04/12/24 Norma May MD [address] [place] [address] PCP - General Family Medicine 04/13/24 Meryl Martinez, MINIATURE SET CONSTRUCTOR, EXTRACT OPERATOR [address] [facility], [address] [place] [address] Nurse Practitioner Cardiology 07/25/24 documented as of this encounter
--- OUTSIDE RECORDS SUMMARY | 2025-03-13 09:16 | XMS_ITS | Encounter Summary ---
Author Organization [facility] Address [address] [place] [address] Phone Care Team Providers Care Perinatal Specialist Name Role Phone Trupti Spence MD Primary Care Provider Provider, Unknown Primary Care Provider Unavaila Evette Persaud MD Primary Care Provider Unavailable Norma May MD Primary Care Provider Meryl Martinez APRN, INSECTICIDE MAKER Unavailable [phone]- [phone] Encounter Details Date Type Department Care Team (Late st Contact Info) Description 12/31/2021 Lab Requisition [facility] Laboratory Services 1 [place] [address] Louie Purdy MD [address] [place] [address] [address] [place] [address] Encounter for screening for COVID-19 Social History [...] Cardiology [facility] #2 [place] [address] Liss Jo APRN, INSECTICIDE MAKER #2 [place] [address] documented as of this encounter Procedures Procedure Name Priority Date/Time Associated Diagnosis Comments SARS-COV-2 BY MOLECULAR Routine 12/31/2021 7:50 AM CDT Encounter for screening for COVID-19 documented in this encounter Results * SARS-COV-2 BY MOLECULAR (12/31/2021 7:50 AM CDT) SARSCOV2 NOT DETECTED (Referen ce Range for this test is Not Detected ) [facility] THERMOFISHER FAST DX 01/01/2022 12:07 AM CDT [facility] Comment:This test was perfor med by a RT-PCR method. Other Non-Phlebotomy Collection / Unknown 12/31/2021 7:50 AM CDT 12/31/2021 12:08 PM CDT Narrative [facility] - 01/01/2022 12:07 AM CDT Authorized Fact Sheets about this test for providers and patients are available at: https://www.fda.gov/medical-devices/qnzzztuux-wjyhbvnggj-cikundm-devices/emergen -us e-authorizations us Louie Purdy MD MICROBIOLOGY - GENERAL ORDERAB LES Final Result [facility] [address] [facility] [place] [address], documented in this encounter Visit Diagnoses Diagnosis [...] 19 07/01/2022 08/19/2022 08/29/2022 12:1 6 AM SEO CONSULTANT COVID - 19 10/07/2022 12/23/2022 01/02/2023 12:1 6 AM CDT documented as of this encounter Care Teams Perinatal Specialist Relationship Specialty Start Date End Date Trupti Spence MD PCP - General Family Medicine 02/19/16 11/23/22 Provider, Unknown UNKNOWN PCP - General 11/25/22 12/03/22 Evette Melo MD UNKNOWN PCP - General Family Medicine 12/04/22 04/12/24 Norma May MD [address] [place] [address] PCP - General Family Medicine 04/13/24 Meryl Martinez APRN, INSECTICIDE MAKER #2 [facility], [address] [place] [address] Nurse Practitioner Cardiology 07/25/24 documented as of this encounter
--- OUTSIDE RECORDS SUMMARY | 2025-03-13 09:16 | XMS_ITS | Encounter Summary ---
Author Organization [facility] Address [address] [place] [address] Phone Care Team Providers Care Heating And Refrigeration Inspector Name Role Phone Evette Melo MD Primary Care Provider Unavailable Norma May MD Primary Care Provider [phone]- [phone] Meryl Martinez APRN, PROGRAM REVIEW DIRECTOR Unavailable [phone]- [phone] Encounter Details Date Type Department Care Team (Late st Contact Info) Description 12/16/2022 Lab Requisition [facility] Laboratory Services 1 [place] [phone] Louie Purdy MD [address] [place] [address] [place] [address] Encounter for screening for COVID-19 Social History [...] Description 07/24/2025 11:00 AM CDT Office Visit [facility] - Cardiology - [place] #2 [place] [phone] Liss Jo APRN, PROGRAM REVIEW DIRECTOR #2 [place] [address] documented as of this encounter Procedures Procedure Name Priority Date/Time Associated Diagnosis Comments SARS-COV-2 BY MOLECULAR Routine 12/16/2022 8:03 AM FIRE ENGINEER Encounter for screening for COVID-19 documented in this encounter Results * SARS-COV-2 BY MOLECULAR (12/16/2022 8:03 AM FIRE ENGINEER) SARSCOV2 NOT DETECTED (Referen ce Range for this test is Not Detected ) [facility] THERMOFISHER FAST DX 12/16/2022 7:37 PM FIRE ENGINEER [facility] Comment:This test was perfor med by a RT-PCR method. Other No Phlebotomy Charged / Unknown 12/16/2022 8:03 AM FIRE ENGINEER 12/16/2022 10:04 AM FIRE ENGINEER Narrative [facility] - 12/16/2022 7:37 PM FIRE ENGINEER Authorized Fact Sheets about this test for providers and patients are available at: https://www.fda.gov/medical-devices/necwqvruj-icgiatwkpd-abvlmfy-devices/emergen -us e-authorizations us Louie Purdy MD MICROBIOLOGY - GENERAL ORDERAB LES Final Result [facility] [address] [place] [address], documented in this encounter Visit Diagnoses Diagnosis Encounter for screening for COVID-19 documented in this encounter Additional Health Concerns Infection Onset Date Last Indicated Resolved Time COVID - 19 10/07/2022 12/23/2022 01/02/2023 12:1 6 AM CDT documented as of this encounter Care Teams Heating And Refrigeration Inspector Relationship Specialty Start Date End Date Evette Melo MD PCP - General Family Medicine 12/04/22 04/12/24 Norma May MD [address] [place] [address] PCP - General Family Medicine 04/13/24 Meryl Martinez APRN, PROGRAM REVIEW DIRECTOR #2 [facility], [address] [place] [address] Nurse Practitioner Cardiology 07/25/24 documented as of this encounter
--- OUTSIDE RECORDS SUMMARY | 2025-03-13 09:16 | XMS_ITS | Encounter Summary ---
Author Organization [facility] Address [address] [place] [address] Phone Care Team Providers Care Public Works Manager Name Role Phone Trupti Spence MD Primary Care Provider [phone] Provider, Unknown Primary Care Provider Unavaila Evette Persaud MD Primary Care Provider Unavailable Norma May MD Primary Care Provider Meryl Martinez APRN, NEURO OPHTHALMOLOGIST Unavailable [phone]- [phone] Encounter Details Date Type Department Care Team (Late st Contact Info) Description 11/18/2022 Lab Requisition [facility] Laboratory Services 1 [place] [address] Louie Purdy MD [address] [place] [address] [address] [place] [address] Encounter for screening for COVID-19 Social History [...] Office Visit [facility] - Cardiology [facility] #2 [place] [address] Liss Jo APRN, NEURO OPHTHALMOLOGIST #2 [place] [address] documented as of this encounter Procedures Procedure Name Priority Date/Time Associated Diagnosis Comments SARS-COV-2 BY MOLECULAR Routine 11/18/2022 8:15 AM CONTAMINATED LAND CONSULTANT Encounter for screening for COVID-19 documented in this encounter Results * SARS-COV-2 BY MOLECULAR (11/18/2022 8:15 AM CONTAMINATED LAND CONSULTANT) SARSCOV2 NOT DETECTED (Referen ce Range for this test is Not Detected ) [facility] THERMOFISHER FAST DX 11/18/2022 11:05 PM CONTAMINATED LAND CONSULTANT [facility] Comment:This test was perfor med by a RT-PCR method. Other Non-Phlebotomy Collection / Unknown 11/18/2022 8:15 AM CONTAMINATED LAND CONSULTANT 11/18/2022 10:15 AM CONTAMINATED LAND CONSULTANT Narrative [facility] - 11/18/2022 11:05 PM CONTAMINATED LAND CONSULTANT Authorized Fact Sheets about this test for providers and patients are available at: https://www.fda.gov/medical-devices/tnqavbtot-pqykauexgb-lohnysf-devices/emergen cy-us e-authorizations us Louie Purdy MD MICROBIOLOGY - GENERAL ORDERAB LES Final Result [facility] [address] [place] [address], documented in this encounter Visit Diagnoses Diagnosis Encounter for screening for COVID-19 documented in this encounter Additional Health Concerns Infection Onset Date Last Indicated Resolved Time COVID - 19 10/07/2022 12/23/2022 01/02/2023 12:1 6 AM CDT documented as of this encounter Care Teams Public Works Manager Relationship Specialty Start Date End Date Trupti Spence MD PCP - General Family Medicine 02/19/16 11/23/22 Provider, Unknown UNKNOWN PCP - General 11/25/22 12/03/22 vEette Melo MD UNKNOWN PCP - General Family Medicine 12/04/22 04/12/24 Norma May MD [address] [place] [address] PCP - General Family Medicine 04/13/24 Meryl Martinez APRN, NEURO OPHTHALMOLOGIST #[address] [facility], [address] [place] [address] Nurse Practitioner Cardiology 07/25/24 documented as of this encounter
--- OUTSIDE RECORDS SUMMARY | 2025-03-13 09:16 | XMS_ITS | Encounter Summary ---
Author Organization [facility] Address [address] [place] [address] Phone Care Team Providers Care Respiratory Therapy Manager Name Role Phone Trupti Spence MD Primary Care Provider [phone] Provider, Unknown Primary Care Provider Unavaila Evette Persaud MD Primary Care Provider Unavailable Norma May MD Primary Care Provider Meryl Martinez APRN, TRAILHEAD CONSTRUCTION WORKER Unavailable [phone]- [phone] Encounter Details Date Type Department Care Team (Late st Contact Info) Description 10/29/2021 Lab Requisition [facility] Laboratory Services 1 [place] [address] Louie Purdy MD [address] [place] [address] [address] [place] [address] Encounter for screening for COVID-19 Social History [...] Office Visit [facility] - Cardiology [facility] #2 [place] [address] Liss Jo APRN, TRAILHEAD CONSTRUCTION WORKER #2 [place] [address] documented as of this encounter Procedures Procedure Name Priority Date/Time Associated Diagnosis Comments SARS-COV-2 BY MOLECULAR Routine 10/29/2021 7:33 AM GRAPHIC MANAGER Encounter for screening for COVID-19 documented in this encounter Results * SARS-COV-2 BY MOLECULAR (10/29/2021 7:33 AM GRAPHIC MANAGER) SARSCOV2 NOT DETECTED (Referen ce Range for this test is Not Detected ) [facility] THERMOFISHER FAST DX 10/31/2021 9:45 AM GRAPHIC MANAGER [facility] Comment:This test was perfor med by a RT-PCR method. Other Non-Phlebotomy Collection / Unknown 10/29/2021 7:33 AM GRAPHIC MANAGER 10/29/2021 1:03 PM GRAPHIC MANAGER Narrative [facility] - 10/31/2021 9:45 AM GRAPHIC MANAGER Authorized Fact Sheets about this test for providers and patients are available at: https://www.fda.gov/medical-devices/rskmbxwps-epiicpsvyi-mehhlmc-devices/emergen cy-us e-authorizations us Louie Purdy MD MICROBIOLOGY - GENERAL ORDERAB LES Final Result [facility] [address] [place] [address], documented in this encounter Visit Diagnoses Diagnosis Encounter for screening for COVID-19 documented in this encounter Additional Health Concerns Infection Onset Date Last Indicated Resolved Time COVID - 19 07/02/2021 04/08/2022 04/08/2022 11:4 5 PM CDT COVID - 19 Confirmed 04/08/2022 04/08/2022 022 12:16 AM CDT COVID - 19 04/29/2022 06/03/2022 06/13/2022 12:1 6 AM CDT COVID - 19 06/17/2022 06/17/2022 06/27/2022 12:1 6 AM CDT COVID - 19 07/01/2022 08/19/2022 08/29/2022 12:1 6 AM GRAPHIC MANAGER COVID - 19 10/07/2022 12/23/2022 01/02/2023 12:1 6 AM CDT documented as of this encounter Care Teams Respiratory Therapy Manager Relationship Specialty Start Date End Date Trupti Spence MD PCP - General Family Medicine 02/19/16 11/23/22 Provider, Unknown UNKNOWN PCP - General 11/25/22 12/03/22 Evette Melo MD UNKNOWN PCP - General Family Medicine 12/04/22 04/12/24 Norma May MD [address] [place] [address] PCP - General Family Medicine 04/13/24 Meryl Martinez APRN, TRAILHEAD CONSTRUCTION WORKER #2 [facility], [address] [place] [address] Nurse Practitioner Cardiology 07/25/24 documented as of this encounter
--- OUTSIDE RECORDS SUMMARY | 2025-03-13 09:16 | XMS_ITS | Encounter Summary ---
Author Organization [facility] Address [address] [place] [address] Phone Care Team Providers Care Management Technician Name Role Phone Trupti Spence MD Primary Care Provider Provider, Unknown Primary Care Provider Unavaila Evette Persaud MD Primary Care Provider Unavailable Norma May MD Primary Care Provider Meryl Martinez APRN, FACILITIES CUSTODIAN Unavailable [phone]- [phone] Encounter Details Date Type Department Care Team (Late st Contact Info) Description 05/13/2022 Lab Requisition [facility] Laboratory Services 1 [place] [address] Louie Purdy MD [address] [place] [address] [address] [place] [address] Encounter for screening for COVID-19 Social History [...] Visit [facility] - Cardiology [facility] #2 [place] [address] Liss Jo APRN, FACILITIES CUSTODIAN #2 [place] [address] documented as of this encounter Procedures Procedure Name Priority Date/Time Associated Diagnosis Comments SARS-COV-2 BY MOLECULAR Routine 05/13/2022 8:38 AM CDT Encounter for screening for COVID-19 documented in this encounter Results * SARS-COV-2 BY MOLECULAR (05/13/2022 8:38 AM CDT) SARSCOV2 NOT DETECTED (Referen ce Range for this test is Not Detected ) [facility] THERMOFISHER FAST DX 05/14/2022 1:01 PM CDT [facility] Comment:This test was perfor med by a RT-PCR method. Other Non-Phlebotomy Collection / Unknown 05/13/2022 8:38 AM CDT 05/13/2022 12:54 PM CDT Narrative [facility] - 05/14/2022 1:01 PM CDT Authorized Fact Sheets about this test for providers and patients are available at: https://www.fda.gov/medical-devices/rrygvcyhx-hkxowaiavm-tjtgxym-devices/emergen -us e-authorizations us Louie Purdy MD MICROBIOLOGY - GENERAL ORDERAB LES Final Result [facility] [address] [place] [address], documented in this encounter Visit Diagnoses Diagnosis Encounter for screening for COVID-19 documented in this encounter Additional Health Concerns Infection Onset Date Last Indicated Resolved Time COVID - 19 04/29/2022 06/03/2022 06/13/2022 12:1 6 AM CDT COVID - 19 06/17/2022 06/17/2022 06/27/2022 12:1 6 AM CDT COVID - 19 07/01/2022 08/19/2022 08/29/2022 12:1 6 AM KILN TRANSFER OPERATOR COVID - 19 10/07/2022 12/23/2022 01/02/2023 12:1 6 AM CDT documented as of this encounter Care Teams Management Technician Relationship Specialty Start Date End Date Trupti Spence MD PCP - General Family Medicine 02/19/16 11/23/22 Provider, Unknown UNKNOWN PCP - General 11/25/22 12/03/22 Evette Melo MD UNKNOWN PCP - General Family Medicine 12/04/22 04/12/24 Norma May MD [address] [place] [address] PCP - General Family Medicine 04/13/24 Meryl Martinez APRN, FACILITIES CUSTODIAN #2 [facility], [address] [place] [address] Nurse Practitioner Cardiology 07/25/24 documented as of this encounter
--- OUTSIDE RECORDS SUMMARY | 2025-03-13 09:16 | XMS_ITS | Encounter Summary ---
Author Organization [facility] Address [address] [place] [address] Phone Care Team Providers Care Orthotic Assistant Name Role Phone Trupti Spence MD Primary Care Provider Provider, Unknown Primary Care Provider Unavaila Evette Persaud MD Primary Care Provider Unavailable Norma May MD Primary Care Provider Meryl Martinez APRN, PROFESSOR OF VEGETABLE SCIENCE Unavailable [phone]- [phone] Encounter Details Date Type Department Care Team (Late st Contact Info) Description 07/29/2022 Lab Requisition [facility] Laboratory Services 1 [place] [address] Louie Purdy MD [address] [place] [address] [address] [place] [address] Encounter for screening for COVID-19 Social History [...] Office Visit [facility] - Cardiology [facility] #2 [place] [address] Liss Jo APRN, PROFESSOR OF VEGETABLE SCIENCE #2 [place] [address] documented as of this encounter Procedures Procedure Name Priority Date/Time Associated Diagnosis Comments SARS-COV-2 BY MOLECULAR Routine 07/29/2022 8:33 AM CDT Encounter for screening for COVID-19 documented in this encounter Results * SARS-COV-2 BY MOLECULAR (07/29/2022 8:33 AM CDT) SARSCOV2 NOT DETECTED (Referen ce Range for this test is Not Detected ) [facility] THERMOFISHER FAST DX 07/30/2022 12:39 AM CDT [facility] Comment:This test was perfor med by a RT-PCR method. Other Non-Phlebotomy Collection / Unknown 07/29/2022 8:33 AM CDT 07/29/2022 11:30 AM CDT Narrative [facility] - 07/30/2022 12:39 AM CDT Authorized Fact Sheets about this test for providers and patients are available at: https://www.fda.gov/medical-devices/lxtnlwxcl-djdibjihkd-vsimriv-devices/emergen -us e-authorizations us Louie Purdy MD MICROBIOLOGY - GENERAL ORDERAB LES Final Result [facility] [address] [place] [address], documented in this encounter Visit Diagnoses Diagnosis Encounter for screening for COVID-19 documented in this encounter Additional Health Concerns Infection Onset Date Last Indicated Resolved Time COVID - 19 07/01/2022 08/19/2022 08/29/2022 12:1 6 AM VP INFORMATICS COVID - 19 10/07/2022 12/23/2022 01/02/2023 12:1 6 AM CDT documented as of this encounter Care Teams Orthotic Assistant Relationship Specialty Start Date End Date Trupti Spence MD PCP - General Family Medicine 02/19/16 11/23/22 Provider, Unknown UNKNOWN PCP - General 11/25/22 12/03/22 Evette Melo MD UNKNOWN PCP - General Family Medicine 12/04/22 04/12/24 Norma May MD [address] [place] [address] PCP - General Family Medicine 04/13/24 Meryl Martinez APRN, PROFESSOR OF VEGETABLE SCIENCE #2 [facility], [address] [place] [address] Nurse Practitioner Cardiology 07/25/24 documented as of this encounter
--- OUTSIDE RECORDS SUMMARY | 2025-03-13 09:16 | XMS_ITS | Encounter Summary ---
Author Organization [facility] Address [address] [place] [address] Phone Care Team Providers Care Vice Chair Name Role Phone Trupti Spence MD Primary Care Provider [phone] Provider, Unknown Primary Care Provider Unavaila Evette Persaud MD Primary Care Provider Unavailable Norma May MD Primary Care Provider Meryl Martinez APRN, FLEET OPERATIONS MANAGER Unavailable [phone]- [phone] Encounter Details Date Type Department Care Team (Late st Contact Info) Description 08/19/2022 Lab Requisition [facility] Laboratory Services 1 [place] [address] Louie Purdy MD [address] [place] [address] [address] [place] [address] Encounter for screening for COVID-19 Social History [...] Office Visit [facility] - Cardiology [facility] #2 [place] [address] Liss Jo APRN, FLEET OPERATIONS MANAGER #[address] [place] [address] documented as of this encounter Procedures Procedure Name Priority Date/Time Associated Diagnosis Comments SARS-COV-2 BY MOLECULAR Routine 08/19/2022 9:50 AM VETERINARY ATTENDANT Encounter for screening for COVID-19 documented in this encounter Results * SARS-COV-2 BY MOLECULAR (08/19/2022 9:50 AM VETERINARY ATTENDANT) SARSCOV2 NOT DETECTED (Referen ce Range for this test is Not Detected ) [facility] THERMOFISHER FAST DX 08/20/2022 4:42 AM VETERINARY ATTENDANT [facility] Comment:This test was perfor med by a RT-PCR method. Other Non-Phlebotomy Collection / Unknown 08/19/2022 9:50 AM VETERINARY ATTENDANT 08/19/2022 11:11 AM VETERINARY ATTENDANT Narrative [facility] - 08/20/2022 4:42 AM VETERINARY ATTENDANT Authorized Fact Sheets about this test for providers and patients are available at: https://www.fda.gov/medical-devices/dhfojqbov-qyzvxzadhd-kgoczha-devices/emergen cy-us e-authorizations us Louie Purdy MD MICROBIOLOGY - GENERAL ORDERAB LES Final Result [facility] [address] [place] [address], documented in this encounter Visit Diagnoses Diagnosis Encounter for screening for COVID-19 documented in this encounter Additional Health Concerns Infection Onset Date Last Indicated Resolved Time COVID - 19 07/01/2022 08/19/2022 08/29/2022 12:1 6 AM VETERINARY ATTENDANT COVID - 19 10/07/2022 12/23/2022 01/02/2023 12:1 6 AM CDT documented as of this encounter Care Teams Vice Chair Relationship Specialty Start Date End Date Trupti Spence MD PCP - General Family Medicine 02/19/16 11/23/22 Provider, Unknown UNKNOWN PCP - General 11/25/22 12/03/22 Evette Melo MD UNKNOWN PCP - General Family Medicine 12/04/22 04/12/24 Norma May MD [address] [place] [address] PCP - General Family Medicine 04/13/24 Meryl Martinez APRN, FLEET OPERATIONS MANAGER #2 [facility], [address] [place] [address] Nurse Practitioner Cardiology 07/25/24 documented as of this encounter
--- OUTSIDE RECORDS SUMMARY | 2025-03-13 09:16 | XMS_ITS | Encounter Summary ---
Author Organization [facility] Address [address] [place] [address] Phone Care Team Providers Care Cutch Cleaner Name Role Phone Evette Melo MD Primary Care Provider Unavailable Norma May MD Primary Care Provider [phone]- [phone] Meryl Martinez APRN, CARDBOARD INSERTER Unavailable [phone]- [phone] Encounter Details Date Type Department Care Team (Late st Contact Info) Description 12/23/2022 [facility] Laboratory [facility] 1 [place] [address] Louie Purdy MD [address] [place] [address] [place] [address] Encounter for screening for COVID-19 Social History [...] Description 07/24/2025 11:00 AM CDT Office Visit [facility] - Cardiology - [place] #2 [place] [phone] Liss Jo APRN, CARDBOARD INSERTER #[address] [place] [address] documented as of this encounter Procedures Procedure Name Priority Date/Time Associated Diagnosis Comments SARS-COV-2 BY MOLECULAR Routine 12/23/2022 8:07 AM CDT Encounter for screening for COVID-19 documented in this encounter Results * SARS-COV-2 BY MOLECULAR (12/23/2022 8:07 AM CDT) SARSCOV2 NOT DETECTED (Referen ce Range for this test is Not Detected ) [facility] THERMOFISHER FAST DX 12/23/2022 5:01 PM CDT [facility] Comment:This test was perfor med by a RT-PCR method. Other COVID 19 Home Health/ [facility] Collection / Unknown 12/23/2022 8:07 AM CDT 12/23/2022 9:23 AM CDT Narrative [facility] - 12/23/2022 5:01 PM CDT Authorized Fact Sheets about this test for providers and patients are available at: https://www.fda.gov/medical-devices/wplsnryik-taddcmjcov-gqkezbc-devices/emergen -us e-authorizations us Louie Purdy MD MICROBIOLOGY - GENERAL ORDERAB LES Final Result [facility] [address] [place] [address], documented in this encounter Visit Diagnoses Diagnosis Encounter for screening for COVID-19 documented in this encounter Additional Health Concerns Infection Onset Date Last Indicated Resolved Time COVID - 19 10/07/2022 12/23/2022 01/02/2023 12:1 6 AM CDT documented as of this encounter Care Teams Cutch Cleaner Relationship Specialty Start Date End Date Evette Melo MD PCP - General Family Medicine 12/04/22 04/12/24 Norma May MD [address] [place] [address] PCP - General Family Medicine 04/13/24 Meryl Martinez APRN, CARDBOARD INSERTER #2 [facility], [address] [place] [address] Nurse Practitioner Cardiology 07/25/24 documented as of this encounter
--- OUTSIDE RECORDS SUMMARY | 2025-03-13 09:16 | XMS_ITS | Encounter Summary ---
Author Organization [facility] HealthCare Address [address] [place] [address] Phone Care Team Providers Care Powdered Sugar Supervisor Name Role Phone Norma May MD Primary Care Provider +1- [phone] Meryl Martinez APRN, PRECISION INSTRUMENT MAKER Unavailable +1- [phone] Encounter Details Date Type Department Care Team (Late st Contact Info) Description 08/02/2024 Lab Requisition [facility] [address] [place] [id number] Norma May MD [address] [place] [address] Mild intellectual disabilities; Hyperlipidemia, unspecified; Essential (primary) hypertension; Unspecified hearing loss, bilateral; Vitamin D deficiency, unspecified; Hypothyroidism, unspecified Social History Tobacco Use Types Packs/Day Years Used Date Smoking Tobacco: Never Smokeless Tobacco: Never Alcohol Use Standard Drinks/Week Comments No 0 (1 standard drink = 0.6 oz pur e alcohol) [facility] Utilities Answer Date Recorded In the past 12 months has [employer], gas, oil, or water company threatened to shut off services in your home? Patient declined 06/08/2024 Social Connection and Isolation Panel [NHANES] A nswer Date Recorded In a typical week, how many times do you talk on the phone with family, friends, or neighbors? Patient declined 06/08/2024 How often do you get togethe r with friends or relatives? Patient declined 06/08/2024 How often do you attend mosque or taoism serv ices? Patient declined 06/08/2024 Do you belong to any clubs o r organizations such as mosque groups, unions, fraternal or athletic groups, or school groups? Patient declined 06/08/2024 How often do you attend meet ings of the clubs or organizations you belong to? Patient declined 06/08/2024 Are you , , di vorced, , never , or living with a partner? Patient declined 06/08/2024 AUDIT-C Answer Date Recorded Q1: How often do you have a drink containing alc ohol? Patient declined 06/08/2024 Q2: How many drinks containi ng alcohol do you have on a typical day when you are drinking? Patient declined 06/08/2024 Q3: How often do you have si x or more drinks on one occasion? Patient declined 06/08/2024 Overall Financial Resource Strain (CARDIA) Answe r Date Recorded How hard is it for you to pa y for the very basics like food, housing, medical care, and heating? Patient declined 06/08/2024 [facility] - Occupational Stress Questionnaire Answer Date Recorded Do you feel stress - tense, restless, nervous, or anxious, or unable to sleep at night because your mind is troubled all the time - these days? Patient declined 06/08/2024 Exercise Vital Sign Answer Date Recorde d On average, how many days pe r week do you engage in moderate to strenuous exercise (like a brisk walk)? Patient declined On average, how many minutes do you engage in exercise at this level? Patient declined 06/08/2024 Hunger Vital Sign Answer Date Recorded Within the past 12 months, y ou worried that your food would run out before you got the money to buy more. Patient declined Within the past 12 months, t he food you bought just didn't last and you didn't have money to get more. Patient declined PRAPARE - Transportation Answer Date Re corded In the past 12 months, has l ack of transportation kept you from medical appointments or from getting medications? Patient declined 06/08/2024 In the past 12 months, has l ack of transportation kept you from meetings, work, or from getting things needed for daily living? Patient declined 06/08/2024 Housing Stability Vital Sign Answer Juliano e Recorded In the last 12 months, was t here a time when you were not able to pay the mortgage or rent on time? Patient declined 06/08/20 24 In the past 12 months, how m any times have you moved where you were living? 1 06/08/2024 At any time in the past 12 m [facility], were you homeless or living in a intermediate (including now)? Patient declined 06/08/2024 Comments No Sex and Gender Information Value Date Recorded Sex Assigned at Not on file Legal Sex Female 8:58 PM CDT Gender Identity Not on file Sexual Orientation Not on file documented as of this encounter Progress Notes * Norma May MD - 08/02/2024 8:32 AM CDT Patient is a resident at [facility]. Please send these results and commentary to them. Metabolic profile shows that the patient is in stage 4 chronic kidney disease and probably should follow up with a ink maker. It is important for her to avoid dehydration. She should not take ibuprofen or Naprosyn as these are hard on the kidneys. Blood sugar and liver tests were normal. Triglycerides were normal. Cholesterol was slightly elevated at 222. Patient should avoid deep fat fried foods, cream sauce, cheese sauce, and more than 4 oz of red meat per meal. Blood count is normal. Thyroid tests are normal. Vitamin-D is in the middle of the normal range and patient probably does not need to be taking supplements. Hemoglobin A1c shows a normal average blood sugar. documented in this encounter Plan of Treatment Upcoming Encounters Date Type Department Care Team (Late st Contact Info) Description 07/24/2025 11:00 AM CDT Office Visit [facility] - [facility] - [place] #2 [place] [phone] Liss Jo APRN, PRECISION INSTRUMENT MAKER [address] [place] [phone] documented as of this encounter Procedures Procedure Name Priority Date/Time Associated Diagnosis Comments VITAMIN D, 25 HYDROXY TOTAL Routine 08/02/2024 6:51 AM CDT Mild intellectual disabilities Hyperlipidemia, unspecified Essential (primary) hypertension Unspecified hearing loss, bilateral Vitamin D deficiency, unspecified Hypothyroidism, unspecified HEMOGLOBIN A1C W/ ESTIMATED GLUCOSE Routine 08/02/2024 6:51 AM CDT Mild intellectual disabilities Hyperlipidemia, unspecified Essential (primary) hypertension Unspecified hearing loss, bilateral Vitamin D deficiency, unspecified Hypothyroidism, unspecified CBC WITH AUTO DIFFERENTIAL Routine 08/02/2024 6:51 AM CDT Mild intellectual disabilities Hyperlipidemia, unspecified Essential (primary) hypertension Unspecified hearing loss, bilateral Vitamin D deficiency, unspecified Hypothyroidism, unspecified THYROXINE (T4) TOTAL Routine 08/02/2024 6:51 AM CDT Mild intellectual disabilities Hyperlipidemia, unspecified Essential (primary) hypertension Unspecified hearing loss, bilateral Vitamin D deficiency, unspecified Hypothyroidism, unspecified THYROID STIMULATING HORMONE (TSH) Routine 08/02/2024 6:51 AM CDT Mild intellectual disabilities Hyperlipidemia, unspecified Essential (primary) hypertension Unspecified hearing loss, bilateral Vitamin D deficiency, unspecified Hypothyroidism, unspecified TRIIODOTHYRININE (T3) FREE Routine 08/02/2024 6:51 AM CDT Mild intellectual disabilities Hyperlipidemia, unspecified Essential (primary) hypertension Unspecified hearing loss, bilateral Vitamin D deficiency, unspecified Hypothyroidism, unspecified LIPID PANEL Routine 08/02/2024 6:51 AM CDT Mild intellectual disabilities Hyperlipidemia, unspecified Essential (primary) hypertension Unspecified hearing loss, bilateral Vitamin D deficiency, unspecified Hypothyroidism, unspecified CMP (COMPREHENSIVE METABOLIC PANEL) Routine 08/02/2024 6:51 AM CDT Mild intellectual disabilities Hyperlipidemia, unspecified Essential (primary) hypertension Unspecified hearing loss, bilateral Vitamin D deficiency, unspecified Hypothyroidism, unspecified COMPLETE BLOOD COUNT (CBC) WITH DIFF Routine 08/02/2024 6:51 AM CDT Mild intellectual disabilities Hyperlipidemia, unspecified Essential (primary) hypertension Unspecified hearing loss, bilateral Vitamin D deficiency, unspecified Hypothyroidism, unspecified documented in this encounter Results * (ABNORMAL) CBC WITH AUTO DIFFERENTIAL (08/02/2024 6:51 AM CDT) WBC 7.79 4.00 - 12.00 10(3)/mcL 08/02/2024 8:49 AM CDT [facility] RBC 4.32 3.80 - 5.30 10(6)/mcL 08/02/2024 8:49 AM CDT [facility] HEMOGLOBIN (HGB) 13.4 12.0 - 15.8 g/dL 08/02/2024 8:49 AM CDT [facility] HEMATOCRIT (HCT) 41.5 36.0 - 47.0 % 08/02/2024 8:49 AM CDT [facility] MCV 96.1(H) 82.0 - 96.0 fL 08/02/2024 8:49 AM CDT [facility] MCH 31.0 26.0 - 34.0 pg 08/02/2024 8:49 AM CDT [facility] MCHC 32.3 31.0 - 36.0 g/dL 08/02/2024 8:49 AM CDT [facility] PLATELET COUNT 196 140 - 440 10(3)/mcL 08/02/2024 8:49 AM CDT [facility] RDW 13.2 11.8 - 15.5 % 08/02/2024 8:49 AM CDT [facility] MPV 11.5 9.7 - 12.4 fL 08/02/2024 8:49 AM CDT [facility] NEUTROPHILS 53.9 47.0 - 73.0 % 08/02/2024 8:49 AM CDT [facility] LYMPHOCYTES 34.3 18.0 - 42.0 % 08/02/2024 8:49 AM CDT [facility] MONOCYTES 7.8 4.0 - 12.0 % 08/02/2024 8:49 AM CDT [facility] EOSINOPHILS 3.2 0.0 - 5.0 % 08/02/2024 8:49 AM CDT [facility] BASOPHILS 0.8 0.0 - 1.0 % 08/02/2024 8:49 AM CDT [facility] ABSOLUTE NEUTROPHILS 4.20 1.60 - 7.70 10(3)/mcL 08/02/2024 8:49 AM CDT [facility] ABSOLUTE LYMPHOCYTES 2.67 1.30 - 3.20 10(3)/[facility] 08/02/2024 8:49 AM CDT [facility] ABSOLUTE MONOCYTES 0.61 0.20 - 1.00 10(3)/[facility] 08/02/2024 8:49 AM CDT [facility] ABSOLUTE EOSINOPHIL 0.25 0.00 - 0.40 10(3)/mcL 08/02/2024 8:49 AM CDT [facility] ABSOLUTE BASOPHILS 0.06 0.00 - 0.10 10(3)/[facility] 08/02/2024 8:49 AM CDT [facility] NRBC PER 100 WBC 0 08/02/20 8:49 AM CDT [facility] Blood Venipuncture / Unknown 08/02/2024 6:51 AM CDT 08/02/2024 8:34 AM CDT us Norma May MD HEMATOLOGY ORDERABLES Raeann l Result [facility] [address] [place] [address] * HEMOGLOBIN A1C W/ ESTIMATED GLUCOSE (08/02/2024 6:51 AM CDT) HGB-A1C 5.4 4.0 - 6.0 % 08/02/2024 9:01 AM CDT [facility] Est Average Glucose 108.3 mg/dL 08/02/2024 9:01 AM CDT [facility] Blood Venipuncture / Unknown 08/02/2024 6:51 AM CDT 08/02/2024 8:34 AM CDT Narrative [facility] - 08/02/2024 9:01 AM CDT HEMOGLOBIN A1C: DIABETIC PATIENTS: WELL-CONTROLLED: 6.2 - 7.0 INTERMEDIATE WELL-CONTROLLED: 7.0 - 9.0 POORLY-CONTROLLED: >9.0 Norma May MD CHEMISTRY ORDERABLES Final Result [facility] [address] [place] [address] * VITAMIN D, 25 HYDROXY TOTAL (08/02/2024 6:51 AM CDT) VITAMIN D, 25 HYDROX 56.7 ng/mL 08/02/2024 9:29 AM CDT [facility] Blood Venipuncture / Unknown 08/02/2024 6:51 AM CDT 08/02/2024 8:34 AM CDT Narrative [facility] - 08/02/2024 9:29 AM CDT Published reference ranges for Vitamin D vary depending on time and place and method of testing, and on patient's age, sex, ethnicity and levels of other measured analytes such as parathormone, calcium and phosphorus. The result should be evaluated in conjunction with clinical findings and suspicions. [place] [facility] [employer] and Endocrine Clinical Practice Guidelines: Status Vitamin D levels (ng/mL) Deficient <=20 At risk of inadequacy 21-29 Sufficient 30-100 Centers of Disease Control and Prevention Guidelines: Status Vitamin D levels (ng/mL) Deficient <13 At risk of inadequacy 13-19 Sufficient 20-50 Possibly harmful >50 References: [place] [employer], 2010 Dietary reference intakes for calcium and vitamin D. [place]: The National Academies Press. Melissa M, Randolph N, Mikel HARRINGTON, et al., Evaluation, treatment, and prevention of Vitamin D deficiency: an Endocrinology Clinical Practice Guideline. JCEM 2011 96: 7 1391-5828. Millie A, Gil C, Kong D, et al., Vitamin D Status: [place], 6677-1303, [facility] data brief, no. 59, MD [place]: Formerly [facility] for Health Statistics. 2011. Norma May MD CHEMISTRY ORDERABLES Final Result Performing Organization Address City/[facility]/ZIP Co de Phone Number [facility] [address] [place] [address] * THYROID STIMULATING HORMONE (TSH) (08/02/2024 6:51 AM CDT) TSH 2.153 0.300 - 5.000 mIU/L 08/02/2024 9:30 AM CDT [facility] Blood Venipuncture / Unknown 08/02/2024 6:51 AM CDT 08/02/2024 8:34 AM CDT Norma May MD CHEMISTRY ORDERABLES Final Result Performing Organization Address City/[facility]/ZIP Co de Phone Number [facility] [address] [place] [address] * THYROXINE (T4) TOTAL (08/02/2024 6:51 AM CDT) T4 6.9 5.0 - 13.0 mcg/dL 08/02/2024 9:30 AM CDT [facility] Blood Venipuncture / Unknown 08/02/2024 6:51 AM CDT 08/02/2024 8:34 AM CDT Norma May MD CHEMISTRY ORDERABLES Final Result Performing Organization Address City/[facility]/ZIP Co de Phone Number [facility] [address] [place] [address] * TRIIODOTHYRININE (T3) FREE (08/02/2024 6:51 AM CDT) FREE T3 2.7 1.6 - 3.9 pg/mL 08/02/2024 3:20 PM CDT [facility] Blood Venipuncture / Unknown 08/02/2024 6:51 AM CDT 08/02/2024 8:34 AM CDT Norma May MD CHEMISTRY ORDERABLES Final Result [facility] [address] [place] [address], * (ABNORMAL) LIPID PANEL (08/02/2024 6:51 AM CDT) Pathologist [facility] CHOLESTEROL 222(H) <200 mg/dL 08/02/2024 9:14 AM CDT [facility] TRIGLYCERIDES 74 <150 mg/dL 08/02/2024 9:14 AM CDT [facility] HDL CHOLESTEROL 75 >40 mg/dL 9:14 AM CDT [facility] LDL 132(H) <130 mg/dL 08/02/2024 9:14 AM CDT [facility] VLDL 15 10 - 50 mg/dL 08/02/2024 9:14 AM CDT [facility] CHOL/HDL RATIO 3.0 0.0 - 4.4 08/02/2024 9:14 AM CDT [facility] NON-HDL CHOLESTEROL 147(H) <130 mg/dL 08/02/2024 9:14 AM CDT [facility] Blood Venipuncture / Unknown 08/02/2024 6:51 AM CDT 08/02/2024 8:34 AM CDT Norma May MD CHEMISTRY ORDERABLES Final Result [facility] [address] [place] [address] * (ABNORMAL) CMP (COMPREHENSIVE METABOLIC PANEL) (08/02/2024 6:51 AM CDT) SODIUM 141 136 - 145 mmol/L 08/02/2024 9:14 AM CDT [facility] POTASSIUM 3.8 3.5 - 5.1 mmol/L 08/02/2024 9:14 AM CDT [facility] CHLORIDE 96(L) 98 - 107 mmol/L 08/02/2024 9:14 AM CDT [facility] CO2, VENOUS 35(H) 22 - 30 mmol/L 08/02/2024 9:14 AM CDT [facility] ANION GAP 13.8 <18.0 mmol/L 08/02/2024 9:14 AM CDT [facility] GLUCOSE 86 70 - 99 mg/dL 08/02/2024 9:14 AM CDT [facility] BUN 45(H) 10 - 20 mg/dL 08/02/2024 9:14 AM CDT [facility] CREATININE, BLOOD 1.78(H) 0.60 - 1.00 mg/dL 08/02/2024 9:14 AM CDT [facility] BUN/CREATININE RATIO 25(H) 12 - 20 ratio 08/02/2024 9:14 AM CDT [facility] TOTAL PROTEIN 6.8 6.3 - 8.2 g/dL 08/02/2024 9:14 AM CDT [facility] ALBUMIN 3.9 3.5 - 5.0 g/dL 08/02/2024 9:14 AM CDT [facility] A/G RATIO 1.3 1.0 - 2.2 08/02/2024 9:14 AM CDT [facility] CALCIUM 10.2 8.7 - 10.5 mg/dL 08/02/2024 9:14 AM CDT [facility] T BILI 0.7 0.2 - 1.2 mg/dL 08/02/2024 9:14 AM CDT [facility] SGOT (AST) 19 5 - 34 U/L 08/02/2024 9:14 AM CDT [facility] SGPT (ALT) 15 0 - 55 U/L 08/02/2024 9:14 AM CDT [facility] ALKALINE PHOSPHATASE 55 40 - 150 U/L 08/02/2024 9:14 AM CDT [facility] GFR, ESTIMATED 29(L) >=60 08/02/2024 9:14 AM CDT [facility] Comment: Creatinine Clearance is the preferred criteria for selecting drug dose adjustments in renally impaired patients. The GFR is provided as additional pertinent clinical information. GFR is reported in mL/min/1.73 sq m. Calculation based on the Chronic Kidney Disease Epidemiology Collaboration (CKD- EPI) equation refit without adjustment for race. GFR, EST. 34(L) >=60 024 9:14 AM CDT [facility] GFR, EST. NONAFRICAN 28(L) >=60 08/02/2024 9:14 AM CDT [facility] Blood Venipuncture / Unknown 08/02/2024 6:51 AM CDT 08/02/2024 8:34 AM CDT Norma May MD CHEMISTRY ORDERABLES Final Result [facility] [address] [place] [address] documented in this encounter Visit Diagnoses Diagnosis Mild intellectual disabilities Hyperlipidemia, unspecified Essential (primary) hypertension Unspecified essential hypertension Unspecified hearing loss, bilateral Vitamin D deficiency, unspecified Hypothyroidism, unspecified documented in this encounter Care Teams Powdered Sugar Supervisor Relationship Specialty Start Date End Date Norma May MD [address] [place] [address] PCP - General Family Medicine 04/13/24 Meryl Martinez, CLIENT PORTFOLIO MANAGER, PRECISION INSTRUMENT MAKER [address] [facility], [address] [place] [address] Nurse Practitioner Cardiology 07/25/24 documented as of this encounter
--- OUTSIDE RECORDS SUMMARY | 2025-03-13 09:16 | XMS_ITS | Encounter Summary ---
Author Organization [facility] HealthCare Address [address] [place] [address] Phone Care Team Providers Care Environmental Systems Coordinator Name Role Phone Norma May MD Primary Care Provider [phone]- [phone] Meryl Martinez APRN, CARDIAC/VASCULAR SONOGRAPHER Unavailable +1- [phone] Encounter Details Date Type Department Care Team (Late st Contact Info) Description 11/01/2024 Lab Requisition [facility] 1 [place] [address] Arvin Marquez MD [address] [address] Edema, unspecified; Essential (primary) hypertension Social History Tobacco Use Types Packs/Day Years Used Date Smoking Tobacco: Never Smokeless Tobacco: Never Alcohol Use Standard Drinks/Week Comments No 0 (1 standard drink = 0.6 oz pur e alcohol) [facility] Utilities Answer Date Recorded In the past 12 months has [email or web address], gas, oil, or water [employer] threatened to shut off services in your home? Patient declined 06/08/2024 Social Connection and Isolation Panel [NHANES] A nswer Date Recorded In a typical week, how many times do you talk on the phone with family, friends, or neighbors? Patient declined 06/08/2024 How often do you get togethe r with friends or relatives? Patient declined 06/08/2024 How often do you attend latter-day or jew serv ices? Patient declined 06/08/2024 Do you belong to any clubs o r organizations such as latter-day groups, unions, fraternal or athletic groups, or [...] medical care, and heating? Patient declined 06/08/2024 [facility] - Occupational Stress Questionnaire Answer Date Recorded [...] any time in the past 12 m [facility], were you homeless or living in a residential (including now)? Patient declined 06/08/2024 Comments No [...] [facility] Visit [facility] - [place] [address] [place] [address] Liss Jo APRN, CARDIAC/VASCULAR SONOGRAPHER [address] [place] [address] documented as of this encounter Procedures Procedure Name Priority Date/Time Associated Diagnosis Comments HEPATIC FUNCTION PANEL Routine 11/01/2024 6:15 AM SUMMER COUNSELOR Edema, unspecified Essential (primary) hypertension documented in this encounter Results * (ABNORMAL) HEPATIC FUNCTION PANEL (11/01/2024 6:15 AM SUMMER COUNSELOR) T BILI 0.5 0.2 - 1.2 mg/dL 11/01/2024 7:57 AM SUMMER COUNSELOR [facility] BILIRUBIN,DIRECT 0.2 0.0 - 0.5 mg/dL 11/01/2024 7:57 AM SUMMER COUNSELOR [facility] ALKALINE PHOSPHATASE 54 40 - 150 U/L 11/01/2024 7:57 AM SUMMER COUNSELOR [facility] SGOT (AST) 24 6 - 42 U/L 11/01/2024 7:57 AM SUMMER COUNSELOR [facility] SGPT (ALT) 10 6 - 55 U/L 11/01/2024 7:57 AM SUMMER COUNSELOR [facility] TOTAL PROTEIN 6.2 6.0 - 8.0 g/dL 11/01/2024 7:57 AM SUMMER COUNSELOR [facility] ALBUMIN 3.4(L) 3.5 - 5.0 g/dL 11/01/2024 7:57 AM SUMMER COUNSELOR [facility] Blood Venipuncture / Unknown 11/01/2024 6:15 AM SUMMER COUNSELOR 11/01/2024 7:20 AM SUMMER COUNSELOR us Arvin Marquez MD CHEMISTRY ORDERABLES Final Resu lt [facility] [address] [place] [address] documented in this encounter Visit Diagnoses Diagnosis Edema, unspecified Essential (primary) hypertension Unspecified essential hypertension documented in this encounter Care Teams Environmental Systems Coordinator Relationship Specialty Start Date End Date Norma May MD [address] [place] [address] PCP - General Family Medicine 04/13/24 Meryl Martinez, BUDGET CONSULTANT, CARDIAC/VASCULAR SONOGRAPHER #2 [facility], [address] [place] [address] Nurse Practitioner Cardiology 07/25/24 documented as of this encounter
--- OUTSIDE RECORDS SUMMARY | 2025-03-13 09:16 | XMS_ITS | Encounter Summary ---
Author Organization [facility] Address [address] [place] [address] Phone Care Team Providers Care Earthmoving Labourer Name Role Phone Trupti Spence MD Primary Care Provider Provider, Unknown Primary Care Provider Unavaila Evette Persaud MD Primary Care Provider Unavailable Norma May MD Primary Care Provider Meryl Martinez APRN, TOOL DRESSER Unavailable [phone]- [phone] Encounter Details Date Type Department Care Team (Late st Contact Info) Description 10/22/2021 Lab Requisition [facility] Services 1 [place] [address] Louie Purdy MD [address] [place] [address] [address] [place] [address] Encounter for screening for COVID-19 Social History [...] Office Visit [facility] #2 [place] [phone] Liss Jo APRN, TOOL DRESSER [address] [place] [address] documented as of this encounter Procedures Procedure Name Priority Date/Time Associated Diagnosis Comments SARS-COV-2 BY MOLECULAR Routine 10/22/2021 8:07 AM CCTV TECHNICIAN Encounter for screening for COVID-19 documented in this encounter Results * SARS-COV-2 BY MOLECULAR (10/22/2021 8:07 AM CCTV TECHNICIAN) SARSCOV2 NOT DETECTED (Referen ce Range for this test is Not Detected ) [facility] THERMOFISHER FAST DX 10/24/2021 6:12 AM CCTV TECHNICIAN [facility] Comment:This test was perfor med by a RT-PCR method. Other No Phlebotomy Charged / Unknown 10/22/2021 8:07 AM CCTV TECHNICIAN 10/22/2021 10:48 AM CCTV TECHNICIAN Narrative [facility] - 10/24/2021 6:12 AM CCTV TECHNICIAN Authorized Fact Sheets about this test for providers and patients are available at: https://www.fda.gov/medical-devices/yhxdpzwzn-bvejyoruet-setqjah-devices/emergen cy-us e-authorizations us Louie Purdy MD MICROBIOLOGY - GENERAL ORDERAB LES Final Result [facility] [address] [place] [address], documented in this encounter Visit Diagnoses Diagnosis [...] 19 07/01/2022 08/19/2022 08/29/2022 12:1 6 AM CCTV TECHNICIAN COVID - 19 10/07/2022 12/23/2022 01/02/2023 12:1 6 AM CDT documented as of this encounter Care Teams Earthmoving Labourer Relationship Specialty Start Date End Date Trupti Spence MD PCP - General Family Medicine 02/19/16 11/23/22 Provider, Unknown UNKNOWN PCP - General 11/25/22 12/03/22 Evette Melo MD UNKNOWN PCP - General Family Medicine 12/04/22 04/12/24 Norma May MD [address] [place] [address] PCP - General Family Medicine 04/13/24 Meryl Martinez APRN, TOOL DRESSER #2 [facility], [address] [place] [address] Nurse Practitioner Cardiology 07/25/24 documented as of this encounter
--- OUTSIDE RECORDS SUMMARY | 2025-03-13 09:16 | XMS_ITS | Encounter Summary ---
Author Organization [facility] Address [address] [place] [address] Phone Care Team Providers Care Final Tester Name Role Phone Trupti Spence MD Primary Care Provider [phone] Provider, Unknown Primary Care Provider Unavaila Evette Persaud MD Primary Care Provider Unavailable Norma May MD Primary Care Provider Meryl Martinez APRN, PRINCIPAL SOLUTIONS ARCHITECT Unavailable [phone]- [phone] Encounter Details Date Type Department Care Team (Late st Contact Info) Description 08/05/2022 Lab Requisition [facility] Laboratory Services 1 [place] [address] Louie Purdy MD [address] [place] [address] [address] [place] [address] Encounter for screening for COVID-19 Social History [...] Office Visit [facility] - Cardiology [facility] #2 [place] [address] Liss Jo APRN, PRINCIPAL SOLUTIONS ARCHITECT #2 [place] [address] documented as of this encounter Procedures Procedure Name Priority Date/Time Associated Diagnosis Comments SARS-COV-2 BY MOLECULAR Routine 08/05/2022 8:40 AM CDT Encounter for screening for COVID-19 documented in this encounter Results * SARS-COV-2 BY MOLECULAR (08/05/2022 8:40 AM CDT) SARSCOV2 NOT DETECTED (Referen ce Range for this test is Not Detected ) [facility] THERMOFISHER FAST DX 08/06/2022 12:21 AM CDT [facility] Comment:This test was perfor med by a RT-PCR method. Other Non-Phlebotomy Collection / Unknown 08/05/2022 8:40 AM CDT 08/05/2022 11:44 AM CDT Narrative [facility] - 08/06/2022 12:21 AM CDT Authorized Fact Sheets about this test for providers and patients are available at: https://www.fda.gov/medical-devices/yhhmacvej-vgdhrxadyy-uxchlde-devices/emergen -us e-authorizations us Louie Purdy MD MICROBIOLOGY - GENERAL ORDERAB LES Final Result [facility] [address] [place] [address], documented in this encounter Visit Diagnoses Diagnosis Encounter for screening for COVID-19 documented in this encounter Additional Health Concerns Infection Onset Date Last Indicated Resolved Time COVID - 19 07/01/2022 08/19/2022 08/29/2022 12:1 6 AM PUMP RUNNER COVID - 19 10/07/2022 12/23/2022 01/02/2023 12:1 6 AM CDT documented as of this encounter Care Teams Final Tester Relationship Specialty Start Date End Date Trupti Spence MD PCP - General Family Medicine 02/19/16 11/23/22 Provider, Unknown UNKNOWN PCP - General 11/25/22 12/03/22 Evette Melo MD UNKNOWN PCP - General Family Medicine 12/04/22 04/12/24 Norma May MD [address] [place] [address] PCP - General Family Medicine 04/13/24 Meryl Martinez APRN, PRINCIPAL SOLUTIONS ARCHITECT #2 [facility], [address] [place] [address] Nurse Practitioner Cardiology 07/25/24 documented as of this encounter
--- OUTSIDE RECORDS SUMMARY | 2025-03-13 09:16 | XMS_ITS | Encounter Summary ---
Author Organization [facility] Address [address] [place] [address] Phone Care Team Providers Care Facing Slitter Name Role Phone Trupti Spence MD Primary Care Provider [phone] Provider, Unknown Primary Care Provider Unavaila Evette Persaud MD Primary Care Provider Unavailable Norma May MD Primary Care Provider Meryl Martinez APRN, SNACK BAR COOK Unavailable [phone]- [phone] Encounter Details Date Type Department Care Team (Late st Contact Info) Description 12/03/2021 Lab Requisition [facility] Laboratory Services 1 [place] [address] Louie Purdy MD [address] [place] [address] [address] [place] [address] Encounter for screening for COVID-19 Social History [...] Cardiology [facility] #2 [place] [address] Liss Jo APRN, SNACK BAR COOK [address]2 [place] [address] documented as of this encounter Procedures Procedure Name Priority Date/Time Associated Diagnosis Comments SARS-COV-2 BY MOLECULAR Routine 12/03/2021 8:06 AM SETTLEMENT PROCESSOR Encounter for screening for COVID-19 documented in this encounter Results * SARS-COV-2 BY MOLECULAR (12/03/2021 8:06 AM SETTLEMENT PROCESSOR) SARSCOV2 NOT DETECTED (Referen ce Range for this test is Not Detected ) [facility] THERMOFISHER FAST DX 12/03/2021 11:40 PM SETTLEMENT PROCESSOR [facility] Comment:This test was perfor med by a RT-PCR method. Other Non-Phlebotomy Collection / Unknown 12/03/2021 8:06 AM SETTLEMENT PROCESSOR 12/03/2021 10:39 AM SETTLEMENT PROCESSOR Narrative [facility] - 12/03/2021 11:40 PM SETTLEMENT PROCESSOR Authorized Fact Sheets about this test for providers and patients are available at: https://www.fda.gov/medical-devices/hquruvsvs-eizyfhijgt-zzjalts-devices/emergen cy-us e-authorizations us Louie Purdy MD MICROBIOLOGY - GENERAL ORDERAB LES Final Result [facility] [address] [place] [address], documented in this encounter Visit Diagnoses Diagnosis [...] 19 07/01/2022 08/19/2022 08/29/2022 12:1 6 AM SETTLEMENT PROCESSOR COVID - 19 10/07/2022 12/23/2022 01/02/2023 12:1 6 AM CDT documented as of this encounter Care Teams Facing Slitter Relationship Specialty Start Date End Date Trupti Spence MD PCP - General Family Medicine 02/19/16 11/23/22 Provider, Unknown UNKNOWN PCP - General 11/25/22 12/03/22 Evette Melo MD UNKNOWN PCP - General Family Medicine 12/04/22 04/12/24 Norma May MD [address] [place] [address] PCP - General Family Medicine 04/13/24 Meryl Martinez APRN, SNACK BAR COOK #2 [facility], [address] [place] [address] Nurse Practitioner Cardiology 07/25/24 documented as of this encounter
--- OUTSIDE RECORDS SUMMARY | 2025-03-13 09:16 | XMS_ITS | Encounter Summary ---
Author Organization [facility] Address [address] [place] [address] Phone Care Team Providers Care Python Architect Name Role Phone Trupti Spence MD Primary Care Provider Provider, Unknown Primary Care Provider Unavaila Evette Persaud MD Primary Care Provider Unavailable Norma May MD Primary Care Provider Meryl Martinez APRN, REGRIND MILL OPERATOR Unavailable [phone] Encounter Details Date Type Department Care Team (Late st Contact Info) Description 10/07/2022 Lab Requisition [facility] Laboratory Services 1 [place] [address] Louie Purdy MD [address] [place] [address] [address] [place] [address] Encounter for screening for COVID-19 Social History [...] Office Visit [facility] - Cardiology [facility] #2 [place] [address] Liss Jo APRN, REGRIND MILL OPERATOR #2 [place] [address] documented as of this encounter Procedures Procedure Name Priority Date/Time Associated Diagnosis Comments SARS-COV-2 BY MOLECULAR Routine 10/07/2022 8:09 AM HOMICIDE SQUAD CAPTAIN Encounter for screening for COVID-19 documented in this encounter Results * SARS-COV-2 BY MOLECULAR (10/07/2022 8:09 AM HOMICIDE SQUAD CAPTAIN) SARSCOV2 NOT DETECTED (Referen ce Range for this test is Not Detected ) [facility] THERMOFISHER FAST DX 10/08/2022 12:02 AM HOMICIDE SQUAD CAPTAIN [facility] Comment:This test was perfor med by a RT-PCR method. Other Non-Phlebotomy Collection / Unknown 10/07/2022 8:09 AM HOMICIDE SQUAD CAPTAIN 10/07/2022 2:11 PM HOMICIDE SQUAD CAPTAIN Narrative [facility] - 10/08/2022 12:02 AM HOMICIDE SQUAD CAPTAIN Authorized Fact Sheets about this test for providers and patients are available at: https://www.fda.gov/medical-devices/hpmuxnzen-bhvdnrghik-attpasd-devices/emergen cy-us e-authorizations us Louie Purdy MD MICROBIOLOGY - GENERAL ORDERAB LES Final Result [facility] [address] [place] [address], documented in this encounter Visit Diagnoses Diagnosis Encounter for screening for COVID-19 documented in this encounter Additional Health Concerns Infection Onset Date Last Indicated Resolved Time COVID - 19 10/07/2022 12/23/2022 01/02/2023 12:1 6 AM CDT documented as of this encounter Care Teams Python Architect Relationship Specialty Start Date End Date Trupti Spence MD PCP - General Family Medicine 02/19/16 11/23/22 Provider, Unknown UNKNOWN PCP - General 11/25/22 12/03/22 Evette Melo MD UNKNOWN PCP - General Family Medicine 12/04/22 04/12/24 Norma May MD [address] [place] [address] PCP - General Family Medicine 04/13/24 Meryl Martinez APRN, REGRIND MILL OPERATOR #2 [facility], [address] [place] [address] Nurse Practitioner Cardiology 07/25/24 documented as of this encounter
--- OUTSIDE RECORDS SUMMARY | 2025-03-13 09:16 | XMS_ITS | Encounter Summary ---
Author Organization [facility] Address [address] [place] [address] Phone Care Team Providers Care Respiratory Therapy Aide Name Role Phone Trupti Spence MD Primary Care Provider Provider, Unknown Primary Care Provider Unavaila Evette Persaud MD Primary Care Provider Unavailable Norma May MD Primary Care Provider Meryl Martinez APRN, PREPRESS STRIPPER Unavailable [phone]- [phone] Encounter Details Date Type Department Care Team (Late st Contact Info) Description 01/21/2022 Lab Requisition [facility] Laboratory Services 1 [place] [address] Louie Purdy MD [address] [place] [address] [address] [place] [address] Encounter for screening for COVID-19 Social History [...] [facility] #2 [place] [address] Liss Jo APRN, PREPRESS STRIPPER [address] [place] [address] documented as of this encounter Procedures Procedure Name Priority Date/Time Associated Diagnosis Comments SARS-COV-2 BY MOLECULAR Routine 01/21/2022 8:42 AM CDT Encounter for screening for COVID-19 documented in this encounter Results * SARS-COV-2 BY MOLECULAR (01/21/2022 8:42 AM CDT) SARSCOV2 NOT DETECTED (Referen ce Range for this test is Not Detected ) [facility] THERMOFISHER FAST DX 01/22/2022 6:24 AM CDT [facility] Comment:This test was perfor med by a RT-PCR method. Other Non-Phlebotomy Collection / Unknown 01/21/2022 8:42 AM CDT 01/21/2022 1:07 PM CDT Narrative [facility] - 01/22/2022 6:24 AM CDT Authorized Fact Sheets about this test for providers and patients are available at: https://www.fda.gov/medical-devices/tyqzkwyrx-czwvooiuvm-nbirejx-devices/emergen -us e-authorizations us Louie Purdy MD MICROBIOLOGY - GENERAL ORDERAB LES Final Result [facility] [address] [facility] [place] [address], documented in this encounter Visit Diagnoses Diagnosis [...] 19 07/01/2022 08/19/2022 08/29/2022 12:1 6 AM SINGING TEACHER COVID - 19 10/07/2022 12/23/2022 01/02/2023 12:1 6 AM CDT documented as of this encounter Care Teams Respiratory Therapy Aide Relationship Specialty Start Date End Date Trupti Spence MD PCP - General Family Medicine 02/19/16 11/23/22 Provider, Unknown UNKNOWN PCP - General 11/25/22 12/03/22 Evette Melo MD UNKNOWN PCP - General Family Medicine 12/04/22 04/12/24 Norma May MD [address] [place] [address] PCP - General Family Medicine 04/13/24 Meryl Martinez APRN, PREPRESS STRIPPER #2 [facility], [address] [place] [address] Nurse Practitioner Cardiology 07/25/24 documented as of this encounter
--- OUTSIDE RECORDS SUMMARY | 2025-03-13 09:16 | XMS_ITS | Encounter Summary ---
Author Organization [facility] Address [address] [place] [address] Phone Care Team Providers Care Foot Gatherer Name Role Phone Trupti Spence MD Primary Care Provider Provider, Unknown Primary Care Provider Unavaila Evette Persaud MD Primary Care Provider Unavailable Norma May MD Primary Care Provider Meryl Martinez APRN, CUSTOMER CONSULTING MANAGER Unavailable [phone]- [phone] Encounter Details Date Type Department Care Team (Late st Contact Info) Description 01/28/[address] [facility] Laboratory Services 1 [place] [address] Louie Purdy MD [address] [place] [address] [address] [place] [address] Encounter for screening for COVID-19 Social History [...] Office Visit [facility] - Cardiology [facility] #2 [place] [address] Liss Jo APRN, CUSTOMER CONSULTING MANAGER #2 [place] [address] documented as of this encounter Procedures Procedure Name Priority Date/Time Associated Diagnosis Comments SARS-COV-2 BY MOLECULAR Routine 01/28/2022 9:06 AM CDT Encounter for screening for COVID-19 documented in this encounter Results * SARS-COV-2 BY MOLECULAR (01/28/2022 9:06 AM CDT) SARSCOV2 NOT DETECTED (Referen ce Range for this test is Not Detected ) [facility] THERMOFISHER FAST DX 01/28/2022 11:12 PM CDT [facility] Comment:This test was perfor med by a RT-PCR method. Other Non-Phlebotomy Collection / Unknown 01/28/2022 9:06 AM CDT 01/28/2022 1:44 PM CDT Narrative [facility] - 01/28/2022 11:12 PM CDT Authorized Fact Sheets about this test for providers and patients are available at: https://www.fda.gov/medical-devices/zhgtkytyz-mdxpcqxonp-dmymbsh-devices/emergen -us e-authorizations us Louie Purdy MD MICROBIOLOGY - GENERAL ORDERAB LES Final Result [facility] [address] [facility] [place] [address], documented in this encounter Visit Diagnoses Diagnosis [...] 19 07/01/2022 08/19/2022 08/29/2022 12:1 6 AM NURSE CHARGE RN COVID - 19 10/07/2022 12/23/2022 01/02/2023 12:1 6 AM CDT documented as of this encounter Care Teams Foot Gatherer Relationship Specialty Start Date End Date Trupti Spence MD PCP - General Family Medicine 02/19/16 11/23/22 Provider, Unknown UNKNOWN PCP - General 11/25/22 12/03/22 Evette Melo MD UNKNOWN PCP - General Family Medicine 12/04/22 04/12/24 Norma May MD [address] [place] [address] PCP - General Family Medicine 04/13/24 Meryl Martinez APRN, CUSTOMER CONSULTING MANAGER #2 [facility], [address] [place] [address] Nurse Practitioner Cardiology 07/25/24 documented as of this encounter
--- OUTSIDE RECORDS SUMMARY | 2025-03-13 09:16 | XMS_ITS | Encounter Summary ---
Author Organization [facility] Address [address] [place] [address] Phone Care Team Providers Care Cafe Site Attendant Name Role Phone Trupti Spence MD Primary Care Provider Provider, Unknown Primary Care Provider Unavaila Evette Persaud MD Primary Care Provider Unavailable Norma May MD Primary Care Provider Meryl Martinez APRN, COLOR PRINT INSPECTOR Unavailable [phone]- [phone] Encounter Details Date Type Department Care Team (Late st Contact Info) Description 01/14/2022 Lab Requisition [facility] Laboratory Services 1 [place] [address] Louie Purdy MD [address] [place] [address] [address] [place] [address] Encounter for screening for COVID-19 Social History [...] Visit [facility] - Cardiology [facility] #2 [place] [address] Liss Jo APRN, COLOR PRINT INSPECTOR #2 [place] [address] documented as of this encounter Procedures Procedure Name Priority Date/Time Associated Diagnosis Comments SARS-COV-2 BY MOLECULAR Routine 01/14/2022 8:28 AM CDT Encounter for screening for COVID-19 documented in this encounter Results * SARS-COV-2 BY MOLECULAR (01/14/2022 8:28 AM CDT) SARSCOV2 NOT DETECTED (Referen ce Range for this test is Not Detected ) [facility] THERMOFISHER FAST DX 01/14/2022 11:28 PM CDT [facility] Comment:This test was perfor med by a RT-PCR method. Other Non-Phlebotomy Collection / Unknown 01/14/2022 8:28 AM CDT 01/14/2022 12:49 PM CDT Narrative [facility] - 01/14/2022 11:28 PM CDT Authorized Fact Sheets about this test for providers and patients are available at: https://www.fda.gov/medical-devices/zakrvslmm-ufxjeokjol-jisaoof-devices/emergen -us e-authorizations us Louie Purdy MD MICROBIOLOGY - GENERAL ORDERAB LES Final Result [facility] [address] [place] [address], documented in this encounter Visit Diagnoses Diagnosis [...] 19 07/01/2022 08/19/2022 08/29/2022 12:1 6 AM UMBRELLA REPAIRER COVID - 19 10/07/2022 12/23/2022 01/02/2023 12:1 6 AM CDT documented as of this encounter Care Teams Cafe Site Attendant Relationship Specialty Start Date End Date Trupti Spence MD PCP - General Family Medicine 02/19/16 11/23/22 Provider, Unknown UNKNOWN PCP - General 11/25/22 12/03/22 Evette Melo MD UNKNOWN PCP - General Family Medicine 12/04/22 04/12/24 Norma May MD [address] [place] [address] PCP - General Family Medicine 04/13/24 Meryl Martinez APRN, COLOR PRINT INSPECTOR #2 [facility], [address] [place] [address] Nurse Practitioner Cardiology 07/25/24 documented as of this encounter
--- OUTSIDE RECORDS SUMMARY | 2025-03-13 09:16 | XMS_ITS | Encounter Summary ---
Author Organization [facility] Address [address] [place] [address] Phone Care Team Providers Care Obstetrics Tech Name Role Phone Trupti Spence MD Primary Care Provider Provider, Unknown Primary Care Provider Unavaila Evette Persaud MD Primary Care Provider Unavailable Norma May MD Primary Care Provider Meryl Martinez APRN, CLICKER OPERATOR Unavailable [phone]- [phone] Encounter Details Date Type Department Care Team (Late st Contact Info) Description 07/01/2022 Lab Requisition [facility] Laboratory Services 1 [place] [address] Louie Purdy MD [address] [place] [address] [address] [place] [address] Encounter for screening for COVID-19 Social History [...] Office Visit [facility] - Cardiology [facility] #2 [place] [address] Liss Jo APRN, CLICKER OPERATOR #[address] [place] [address] documented as of this encounter Procedures Procedure Name Priority Date/Time Associated Diagnosis Comments SARS-COV-2 BY MOLECULAR Routine 07/01/2022 8:08 AM CDT Encounter for screening for COVID-19 documented in this encounter Results * SARS-COV-2 BY MOLECULAR (07/01/2022 8:08 AM CDT) SARSCOV2 NOT DETECTED (Referen ce Range for this test is Not Detected ) [facility] THERMOFISHER FAST DX 07/02/2022 12:20 PM CDT [facility] Comment:This test was perfor med by a RT-PCR method. Other No Phlebotomy Charged / Unknown 07/01/2022 8:08 AM CDT 07/01/2022 10:43 AM CDT Narrative [facility] - 07/02/2022 12:20 PM CDT Authorized Fact Sheets about this test for providers and patients are available at: https://www.fda.gov/medical-devices/wngxymmxi-dihqdpdede-msxihrg-devices/emergen -us e-authorizations us Louie Purdy MD MICROBIOLOGY - GENERAL ORDERAB LES Final Result [facility] [address] [place] [address], documented in this encounter Visit Diagnoses Diagnosis Encounter for screening for COVID-19 documented in this encounter Additional Health Concerns Infection Onset Date Last Indicated Resolved Time COVID - 19 07/01/2022 08/19/2022 08/29/2022 12:1 6 AM WILDLIFE REMOVAL SPECIALIST COVID - 19 10/07/2022 12/23/2022 01/02/2023 12:1 6 AM CDT documented as of this encounter Care Teams Obstetrics Tech Relationship Specialty Start Date End Date Trupti Spence MD PCP - General Family Medicine 02/19/16 11/23/22 Provider, Unknown UNKNOWN PCP - General 11/25/22 12/03/22 Evette Melo MD UNKNOWN PCP - General Family Medicine 12/04/22 04/12/24 Norma May MD [address] [place] [address] PCP - General Family Medicine 04/13/24 Meryl Martinez APRN, CLICKER OPERATOR #2 [facility], [address] [place] [address] Nurse Practitioner Cardiology 07/25/24 documented as of this encounter
--- OUTSIDE RECORDS SUMMARY | 2025-03-13 09:16 | XMS_ITS | Encounter Summary ---
Author Organization [facility] Address [address] [place] [address] Phone Care Team Providers Care Technical Trainer Name Role Phone Trupti Spence MD Primary Care Provider Provider, Unknown Primary Care Provider Unavaila Evette Persaud MD Primary Care Provider Unavailable Norma May MD Primary Care Provider Meryl Martinez APRN, BOX LINING MACHINE OPERATOR Unavailable [phone]- [phone] Encounter Details Date Type Department Care Team (Late st Contact Info) Description 01/07/2022 Lab Requisition [facility] Laboratory Services 1 [place] [address] Louie Purdy MD [address] [place] [address] [address] [place] [address] Encounter for screening for COVID-19 Social History [...] Office Visit [facility] - Cardiology [facility] #2 [place] [address] Liss Jo APRN, BOX LINING MACHINE OPERATOR #[address] [place] [address] documented as of this encounter Procedures Procedure Name Priority Date/Time Associated Diagnosis Comments SARS-COV-2 BY MOLECULAR Routine 01/07/2022 8:19 AM CDT Encounter for screening for COVID-19 documented in this encounter Results * SARS-COV-2 BY MOLECULAR (01/07/2022 8:19 AM CDT) SARSCOV2 NOT DETECTED (Referen ce Range for this test is Not Detected ) [facility] THERMOFISHER FAST DX 01/08/2022 12:26 AM CDT [facility] Comment:This test was perfor med by a RT-PCR method. Other Non-Phlebotomy Collection / Unknown 01/07/2022 8:19 AM CDT 01/07/2022 11:54 AM CDT Narrative [facility] - 01/08/2022 12:26 AM CDT Authorized Fact Sheets about this test for providers and patients are available at: https://www.fda.gov/medical-devices/xgjnskcnp-fhuepxyvuj-nxydjnw-devices/emergen -us e-authorizations us Louie Purdy MD MICROBIOLOGY - GENERAL ORDERAB LES Final Result [facility] [address] [facility] [place] [address], documented in this encounter Visit Diagnoses Diagnosis [...] 19 07/01/2022 08/19/2022 08/29/2022 12:1 6 AM LINING BRUSHER COVID - 19 10/07/2022 12/23/2022 01/02/2023 12:1 6 AM CDT documented as of this encounter Care Teams Technical Trainer Relationship Specialty Start Date End Date Trupti Spence MD PCP - General Family Medicine 02/19/16 11/23/22 Provider, Unknown UNKNOWN PCP - General 11/25/22 12/03/22 Evette Melo MD UNKNOWN PCP - General Family Medicine 12/04/22 04/12/24 Norma May MD [address] [place] [address] PCP - General Family Medicine 04/13/24 Meryl Martinez APRN, BOX LINING MACHINE OPERATOR #2 [facility], [address] [place] [address] Nurse Practitioner Cardiology 07/25/24 documented as of this encounter
--- OUTSIDE RECORDS SUMMARY | 2025-03-13 09:16 | XMS_ITS | Encounter Summary ---
Author Organization [facility] Address [address] [place] [address] Phone Care Team Providers Care Field Ring Assembler Name Role Phone Norma May MD Primary Care Provider [phone]- [phone] Meryl Martinez APRN, MANAGEMENT TRAINEE MARKETING Unavailable +1- [phone] Encounter Details Date Type Department Care Team (Late st Contact Info) Description 11/01/2024 Lab Requisition [facility] Laboratory Services 1 [place] [address] Arvin Marquez MD [address] [place] [address] Social History Tobacco Use Types Packs/Day Years Used Date Smoking Tobacco: Never Smokeless Tobacco: Never Alcohol Use Standard Drinks/Week Comments No 0 (1 standard drink = 0.6 oz pur e alcohol) [facility] Utilities Answer Date Recorded In the past 12 months has [employer], gas, oil, or water [employer] threatened to shut off services in your home? Patient declined 06/08/2024 Social Connection and Isolation Panel [NHANES] A nswer Date Recorded In a typical week, how many times do you talk on the phone with family, friends, or neighbors? Patient declined 06/08/2024 How often do you get togethe r with friends or relatives? Patient declined 06/08/2024 How often do you attend christian or spiritism serv ices? Patient declined 06/08/2024 Do you belong to any clubs o r organizations such as christian groups, unions, fraternal or athletic groups, or [...] medical care, and heating? Patient declined 06/08/2024 [facility] - Occupational Stress Questionnaire Answer Date Recorded [...] any time in the past 12 m [facility], were you homeless or living in a skilled nursing (including now)? Patient declined 06/08/2024 Comments No [...] Visit [facility] - [place] #2 [place] [address] Liss Jo APRN, MANAGEMENT TRAINEE MARKETING [address] [place] [address] documented as of this encounter Procedures Procedure Name Priority Date/Time Associated Diagnosis Comments MAGNESIUM (MG) Routine 11/01/2024 6:15 AM VP OF GLOBAL MARKETING documented in this encounter Results * MAGNESIUM (MG) (11/01/2024 6:15 AM VP OF GLOBAL MARKETING) MAGNESIUM 2.0 1.6 - 2.6 mg/dL 11/01/2024 2:21 PM VP OF GLOBAL MARKETING [facility] Blood No Phlebotomy Charged / Unknown 11/01/2024 6:15 AM VP OF GLOBAL MARKETING 11/01/2024 2:01 PM VP OF GLOBAL MARKETING us Arvin Marquez MD CHEMISTRY ORDERABLES Final Resu lt [facility] #1 [place] [address] documented in this encounter Visit Diagnoses Not on filedocumented in this encounter Care Teams Field Ring Assembler Relationship Specialty Start Date End Date Norma May MD [address] [place] [address] PCP - General Family Medicine 04/13/24 Meryl Martinez APRN, MANAGEMENT TRAINEE MARKETING #2 [facility], [address] [place] [address] Nurse Practitioner Cardiology 07/25/24 documented as of this encounter
--- OUTSIDE RECORDS SUMMARY | 2025-03-13 09:16 | XMS_ITS | Encounter Summary ---
Author Organization [facility] Address [address] [place] [address] Phone Care Team Providers Care Unit Manager [employer]ience Stores Name Role Phone Trupti Spence MD Primary Care Provider [phone] Provider, Unknown Primary Care Provider Unavaila Evette Persaud MD Primary Care Provider Unavailable Norma May MD Primary Care Provider Meryl Martinez APRN, VESSEL WELDER Unavailable [phone]- [phone] Encounter Details Date Type Department Care Team (Late st Contact Info) Description 06/03/2022 Lab Requisition [facility] Laboratory Services 1 [place] [address] Louie Purdy MD [address] [place] [address] [address] [place] [address] Encounter for screening for COVID-19 Social History [...] Office [facility] #2 [place] [address] Liss Jo APRN, VESSEL WELDER #2 [place] [address] documented as of this encounter Procedures Procedure Name Priority Date/Time Associated Diagnosis Comments SARS-COV-2 BY MOLECULAR Routine 06/03/2022 7:47 AM CDT Encounter for screening for COVID-19 documented in this encounter Results * SARS-COV-2 BY MOLECULAR (06/03/2022 7:47 AM CDT) SARSCOV2 NOT DETECTED (Referen ce Range for this test is Not Detected ) [facility] THERMOFISHER FAST DX 06/04/2022 8:46 AM CDT [facility] Comment:This test was perfor med by a RT-PCR method. Other Non-Phlebotomy Collection / Unknown 06/03/2022 7:47 AM CDT 06/03/2022 11:39 AM CDT Narrative [facility] - 06/04/2022 8:46 AM CDT Authorized Fact Sheets about this test for providers and patients are available at: https://www.fda.gov/medical-devices/rxlojhrcj-gpzdkjzren-uanggko-devices/emergen -us e-authorizations us Louie Purdy MD MICROBIOLOGY - GENERAL ORDERAB LES Final Result [facility] [address] [place] [address], documented in this encounter Visit Diagnoses Diagnosis Encounter for screening for COVID-19 documented in this encounter Additional Health Concerns Infection Onset Date Last Indicated Resolved Time COVID - 19 04/29/2022 06/03/2022 06/13/2022 12:1 6 AM CDT COVID - 19 06/17/2022 06/17/2022 06/27/2022 12:1 6 AM CDT COVID - 19 07/01/2022 08/19/2022 08/29/2022 12:1 6 AM FIRE PREVENTION CHIEF COVID - 19 10/07/2022 12/23/2022 01/02/2023 12:1 6 AM CDT documented as of this encounter Care Teams Unit Manager Convenience Stores Relationship Specialty Start Date End Date Trupti Spence MD PCP - General Family Medicine 02/19/16 11/23/22 Provider, Unknown UNKNOWN PCP - General 11/25/22 12/03/22 Evette Melo MD UNKNOWN PCP - General Family Medicine 12/04/22 04/12/24 Norma May MD [address] [place] [address] PCP - General Family Medicine 04/13/24 Meryl Martinez APRN, VESSEL WELDER [address]2 [facility], [address] [place] [address] Nurse Practitioner Cardiology 07/25/24 documented as of this encounter
--- OUTSIDE RECORDS SUMMARY | 2025-03-13 09:16 | XMS_ITS | Encounter Summary ---
Author Organization [facility] Address [address] [place] [address] Phone Care Team Providers Care Folded Cloth Taper Name Role Phone Trupti Spence MD Primary Care Provider Provider, Unknown Primary Care Provider Unavaila Evette Persaud MD Primary Care Provider Unavailable Norma May MD Primary Care Provider Meryl Martinez APRN, VENUE MANAGER Unavailable [phone]- [phone] Encounter Details Date Type Department Care Team (Late st Contact Info) Description 11/05/2021 Lab Requisition [facility] Laboratory Services 1 [place] [address] Louie Purdy MD [address] [place] [address] [address] [place] [address] Encounter for screening for COVID-19 Social History [...] Office Visit [facility] #2 [place] [address] Liss Jo APRN, VENUE MANAGER #2 [place] [address] documented as of this encounter Procedures Procedure Name Priority Date/Time Associated Diagnosis Comments SARS-COV-2 BY MOLECULAR Routine 11/05/2021 7:58 AM OIL HOUSE ATTENDANT Encounter for screening for COVID-19 documented in this encounter Results * SARS-COV-2 BY MOLECULAR (11/05/2021 7:58 AM OIL HOUSE ATTENDANT) SARSCOV2 NOT DETECTED (Referen ce Range for this test is Not Detected ) [facility] THERMOFISHER FAST DX 11/06/2021 11:10 AM OIL HOUSE ATTENDANT [facility] Comment:This test was perfor med by a RT-PCR method. Other Non-Phlebotomy Collection / Unknown 11/05/2021 7:58 AM OIL HOUSE ATTENDANT 11/05/2021 10:58 AM OIL HOUSE ATTENDANT Narrative [facility] - 11/06/2021 11:10 AM OIL HOUSE ATTENDANT Authorized Fact Sheets about this test for providers and patients are available at: https://www.fda.gov/medical-devices/nfewidgfw-zgvcwahfon-cdtvrja-devices/emergen cy-us e-authorizations us Louie Purdy MD MICROBIOLOGY - GENERAL ORDERAB LES Final Result [facility] [address] [place] [address], documented in this encounter Visit Diagnoses Diagnosis [...] 19 07/01/2022 08/19/2022 08/29/2022 12:1 6 AM OIL HOUSE ATTENDANT COVID - 19 10/07/2022 12/23/2022 01/02/2023 12:1 6 AM CDT documented as of this encounter Care Teams Folded Cloth Taper Relationship Specialty Start Date End Date Trupti Spence MD PCP - General Family Medicine 02/19/16 11/23/22 Provider, Unknown UNKNOWN PCP - General 11/25/22 12/03/22 Evette Melo MD UNKNOWN PCP - General Family Medicine 12/04/22 04/12/24 Norma May MD [address] [place] [address] PCP - General Family Medicine 04/13/24 Meryl Matrinez APRN, VENUE MANAGER #2 [facility], [address] [place] [address] Nurse Practitioner Cardiology 07/25/24 documented as of this encounter
--- OUTSIDE RECORDS SUMMARY | 2025-03-13 09:16 | XMS_ITS | Encounter Summary ---
Author Organization [facility] Address [address] [place] [address] Phone Care Team Providers Care Accounts Receivable Manager Name Role Phone Evette Melo MD Primary Care Provider Unavailable Norma May MD Primary Care Provider [phone]- [phone] Meryl Martinez APRN, AIRCRAFT ARMAMENT MECHANIC Unavailable [phone]- [phone] Encounter Details Date Type Department Care Team (Late st Contact Info) Description 12/09/[address] [facility] Laboratory Services 1 [place] [address] Louie Purdy MD [address] [place] [address] [place] [address] Encounter for screening for COVID-19 Social History [...] Description 07/24/2025 11:00 AM CDT Office Visit [facility] - Cardiology - [place] #2 [place] [phone] Liss Jo APRN, AIRCRAFT ARMAMENT MECHANIC #2 [place] [address] documented as of this encounter Procedures Procedure Name Priority Date/Time Associated Diagnosis Comments SARS-COV-2 BY MOLECULAR Routine 12/09/2022 8:17 AM GARNETT ROOM WORKER Encounter for screening for COVID-19 documented in this encounter Results * SARS-COV-2 BY MOLECULAR (12/09/2022 8:17 AM GARNETT ROOM WORKER) SARSCOV2 NOT DETECTED (Referen ce Range for this test is Not Detected ) [facility] THERMOFISHER FAST DX 12/10/2022 8:01 AM GARNETT ROOM WORKER [facility] Comment:This test was perfor med by a RT-PCR method. Other Non-Phlebotomy Collection / Unknown 12/09/2022 8:17 AM GARNETT ROOM WORKER 12/09/2022 10:23 AM GARNETT ROOM WORKER Narrative [facility] - 12/10/2022 8:01 AM GARNETT ROOM WORKER Authorized Fact Sheets about this test for providers and patients are available at: https://www.fda.gov/medical-devices/mtnbwohae-nkffkyaykw-hiifxls-devices/emergen -us e-authorizations Louie Purdy MD MICROBIOLOGY - GENERAL ORDERAB LES Final Result [facility] [address] [facility] [place] [address], documented in this encounter Visit Diagnoses Diagnosis Encounter for screening for COVID-19 documented in this encounter Additional Health Concerns Infection Onset Date Last Indicated Resolved Time COVID - 19 10/07/2022 12/23/2022 01/02/2023 12:1 6 AM CDT documented as of this encounter Care Teams Accounts Receivable Manager Relationship Specialty Start Date End Date Evette Melo MD PCP - General Family Medicine 12/04/22 04/12/24 Norma May MD [address] [place] [address] PCP - General Family Medicine 04/13/24 Meryl Martinez, SPAR MACHINE OPERATOR HELPER, AIRCRAFT ARMAMENT MECHANIC #2 [facility], [address] [place] [address] Nurse Practitioner Cardiology 07/25/24 documented as of this encounter
--- OUTSIDE RECORDS SUMMARY | 2025-03-13 09:16 | XMS_ITS | Encounter Summary ---
Author Organization [facility] Address [address] [place] [address] Phone Care Team Providers Care Aviation Project Manager Name Role Phone Trupti Spence MD Primary Care Provider [phone] Provider, Unknown Primary Care Provider Unavaila Evette Persaud MD Primary Care Provider Unavailable Norma May MD Primary Care Provider Meryl Martinez APRN, JUKEBOX ROUTE DRIVER Unavailable [phone]- [phone] Encounter Details Date Type Department Care Team (Late st Contact Info) Description 11/19/2021 Lab Requisition [facility] Laboratory Services 1 [place] [address] Louie Purdy MD [address] [place] [address] [address] [place] [address] Encounter for screening for COVID-19 Social History [...] Visit [facility] - Cardiology [facility] #2 [place] [address] Liss Jo APRN, JUKEBOX ROUTE DRIVER #2 [place] [address] documented as of this encounter Procedures Procedure Name Priority Date/Time Associated Diagnosis Comments SARS-COV-2 BY MOLECULAR Routine 11/19/2021 7:38 AM FLATTENING PRESS OPERATOR Encounter for screening for COVID-19 documented in this encounter Results * SARS-COV-2 BY MOLECULAR (11/19/2021 7:38 AM FLATTENING PRESS OPERATOR) SARSCOV2 NOT DETECTED (Referen ce Range for this test is Not Detected ) [facility] THERMOFISHER FAST DX 11/20/2021 9:26 AM FLATTENING PRESS OPERATOR [facility] Comment:This test was perfor med by a RT-PCR method. Other Non-Phlebotomy Collection / Unknown 11/19/2021 7:38 AM FLATTENING PRESS OPERATOR 11/19/2021 10:39 AM FLATTENING PRESS OPERATOR Narrative [facility] - 11/20/2021 9:26 AM FLATTENING PRESS OPERATOR Authorized Fact Sheets about this test for providers and patients are available at: https://www.fda.gov/medical-devices/zdnisrtmp-kpihodiodj-hsiqznw-devices/emergen cy-us e-authorizations us Louie Purdy MD MICROBIOLOGY - GENERAL ORDERAB LES Final Result [facility] [address] [place] [address], documented in this encounter Visit Diagnoses Diagnosis [...] 19 07/01/2022 08/19/2022 08/29/2022 12:1 6 AM FLATTENING PRESS OPERATOR COVID - 19 10/07/2022 12/23/2022 01/02/2023 12:1 6 AM CDT documented as of this encounter Care Teams Aviation Project Manager Relationship Specialty Start Date End Date Trupti Spence MD PCP - General Family Medicine 02/19/16 11/23/22 Provider, Unknown UNKNOWN PCP - General 11/25/22 12/03/22 Evette Melo MD UNKNOWN PCP - General Family Medicine 12/04/22 04/12/24 Norma May MD [address] [place] [address] PCP - General Family Medicine 04/13/24 Meryl Martinez APRN, JUKEBOX ROUTE DRIVER #2 [facility] [facility], [address] [place] [address] Nurse Practitioner Cardiology 07/25/24 documented as of this encounter
--- OUTSIDE RECORDS SUMMARY | 2025-03-13 09:16 | XMS_ITS | Encounter Summary ---
Author Organization [facility] Address [address] [place] [address] Phone Care Team Providers Care Linux Support Engineer Name Role Phone Trupti Spence MD Primary Care Provider [phone] Provider, Unknown Primary Care Provider Unavaila Evette Persaud MD Primary Care Provider Unavailable Norma May MD Primary Care Provider Meryl Martinez APRN, LIBRARY CLERK TALKING BOOKS Unavailable [phone]- [phone] Encounter Details Date Type Department Care Team (Late st Contact Info) Description 10/08/2021 Lab Requisition [facility] Laboratory Services 1 [place] [address] Louie Purdy MD [address] [place] [address] [address] [place] [address] Encounter for screening for COVID-19 Social History [...] Office Visit [facility] #2 [place] [address] Liss Jo APRN, LIBRARY CLERK TALKING BOOKS #2 [place] [address] documented as of this encounter Procedures Procedure Name Priority Date/Time Associated Diagnosis Comments SARS-COV-2 BY MOLECULAR Routine 10/08/2021 8:21 AM FILLETER Encounter for screening for COVID-19 documented in this encounter Results * SARS-COV-2 BY MOLECULAR (10/08/2021 8:21 AM FILLETER) SARSCOV2 NOT DETECTED (Referen ce Range for this test is Not Detected ) [facility] THERMOFISHER FAST DX 10/11/2021 11:18 AM FILLETER [facility] Comment:This test was perfor med by a RT-PCR method. Other No Phlebotomy Charged / Unknown 10/08/2021 8:21 AM FILLETER 10/08/2021 11:40 AM FILLETER Narrative [facility] - 10/11/2021 11:18 AM FILLETER Authorized Fact Sheets about this test for providers and patients are available at: https://www.fda.gov/medical-devices/dkdambjxl-jvdygbsnsr-vjvygve-devices/emergen cy-us e-authorizations us Louie Purdy MD MICROBIOLOGY - GENERAL ORDERAB LES Final Result [facility] [address] [place] [address], documented in this encounter Visit Diagnoses Diagnosis [...] 19 07/01/2022 08/19/2022 08/29/2022 12:1 6 AM FILLETER COVID - 19 10/07/2022 12/23/2022 01/02/2023 12:1 6 AM CDT documented as of this encounter Care Teams Linux Support Engineer Relationship Specialty Start Date End Date Trupti Spence MD PCP - General Family Medicine 02/19/16 11/23/22 Provider, Unknown UNKNOWN PCP - General 11/25/22 12/03/22 Evette Melo MD UNKNOWN PCP - General Family Medicine 12/04/22 04/12/24 Norma May MD [address] [place] [address] PCP - General Family Medicine 04/13/24 Meryl Martinez APRN, LIBRARY CLERK TALKING BOOKS #2 [facility], [address] [place] [address] Nurse Practitioner Cardiology 07/25/24 documented as of this encounter
--- OUTSIDE RECORDS SUMMARY | 2025-03-13 09:16 | XMS_ITS | Encounter Summary ---
Author Organization [facility] Address [address] [place] [address] Phone Care Team Providers Care Plastics Seasoner Operator Name Role Phone Trupti Spence MD Primary Care Provider [phone] Provider, Unknown Primary Care Provider Unavaila Evette Persaud MD Primary Care Provider Unavailable Norma May MD Primary Care Provider Meryl Martinez APRN, BIOCHEMICAL ENGINEER Unavailable [phone] Encounter Details Date Type Department Care Team (Late st Contact Info) Description 04/29/2022 Lab Requisition [facility] Laboratory Services 1 [place] [address] Louie Purdy MD [address] [place] [address] [address] [place] [address] Encounter for screening for COVID-19 Social History [...] Office Visit [facility] #2 [place] [address] Liss Jo APRN, BIOCHEMICAL ENGINEER #2 [place] [address] documented as of this encounter Procedures Procedure Name Priority Date/Time Associated Diagnosis Comments SARS-COV-2 BY MOLECULAR Routine 04/29/2022 8:03 AM CDT Encounter for screening for COVID-19 documented in this encounter Results * SARS-COV-2 BY MOLECULAR (04/29/2022 8:03 AM CDT) SARSCOV2 NOT DETECTED (Referen ce Range for this test is Not Detected ) [facility] THERMOFISHER FAST DX 04/30/2022 7:36 AM CDT [facility] Comment:This test was perfor med by a RT-PCR method. Other Non-Phlebotomy Collection / Unknown 04/29/2022 8:03 AM CDT 04/29/2022 11:20 AM CDT Narrative [facility] - 04/30/2022 7:36 AM CDT Authorized Fact Sheets about this test for providers and patients are available at: https://www.fda.gov/medical-devices/dsbvfevyr-ibaahgdsiz-icthefi-devices/emergen -us e-authorizations us Louie Purdy MD MICROBIOLOGY - GENERAL ORDERAB LES Final Result [facility] [address] [place] [address], documented in this encounter Visit Diagnoses Diagnosis Encounter for screening for COVID-19 documented in this encounter Additional Health Concerns Infection Onset Date Last Indicated Resolved Time COVID - 19 04/29/2022 06/03/2022 06/13/2022 12:1 6 AM CDT COVID - 19 06/17/2022 06/17/2022 06/27/2022 12:1 6 AM CDT COVID - 19 07/01/2022 08/19/2022 08/29/2022 12:1 6 AM ICE GUARD SKATING RINK COVID - 19 10/07/2022 12/23/2022 01/02/2023 12:1 6 AM CDT documented as of this encounter Care Teams Plastics Seasoner Operator Relationship Specialty Start Date End Date Trupti Spence MD PCP - General Family Medicine 02/19/16 11/23/22 Provider, Unknown UNKNOWN PCP - General 11/25/22 12/03/22 Evette Melo MD UNKNOWN PCP - General Family Medicine 12/04/22 04/12/24 Norma May MD [address] [place] [address] PCP - General Family Medicine 04/13/24 Meryl Martinez APRN, BIOCHEMICAL ENGINEER #2 [facility], [address] [place] [address] Nurse Practitioner Cardiology 07/25/24 documented as of this encounter
--- OUTSIDE RECORDS SUMMARY | 2025-03-13 09:16 | XMS_ITS | Encounter Summary ---
Author Organization [facility] Address [address] [place] [address] Phone Care Team Providers Care Control Manager Name Role Phone Trupti Spence MD Primary Care Provider Provider, Unknown Primary Care Provider Unavaila Evette Persaud MD Primary Care Provider Unavailable Norma May MD Primary Care Provider Meryl Martinez APRN, RESTAURANT AND BAR MANAGER Unavailable [phone] Encounter Details Date Type Department Care Team (Late st Contact Info) Description 08/12/2022 Lab Requisition [facility] Laboratory Services 1 [place] [address] Louie Purdy MD [address] [place] [address] [address] [place] [address] Encounter for screening for COVID-19 Social History [...] Cardiology [facility] #2 [place] [address] Liss Jo APRN, RESTAURANT AND BAR MANAGER #2 [place] [address] documented as of this encounter Procedures Procedure Name Priority Date/Time Associated Diagnosis Comments SARS-COV-2 BY MOLECULAR Routine 08/12/2022 8:53 AM CDT Encounter for screening for COVID-19 documented in this encounter Results * SARS-COV-2 BY MOLECULAR (08/12/2022 8:53 AM CDT) SARSCOV2 NOT DETECTED (Referen ce Range for this test is Not Detected ) [facility] THERMOFISHER FAST DX 08/13/2022 12:01 AM CDT [facility] Comment:This test was perfor med by a RT-PCR method. Other Non-Phlebotomy Collection / Unknown 08/12/2022 8:53 AM CDT 08/12/2022 11:08 AM CDT Narrative [facility] - 08/13/2022 12:01 AM CDT Authorized Fact Sheets about this test for providers and patients are available at: https://www.fda.gov/medical-devices/owujyjeno-gnadwkanvi-wafjiym-devices/emergen -us e-authorizations us Louie Purdy MD MICROBIOLOGY - GENERAL ORDERAB LES Final Result [facility] [address] [facility] [place] [address], documented in this encounter Visit Diagnoses Diagnosis Encounter for screening for COVID-19 documented in this encounter Additional Health Concerns Infection Onset Date Last Indicated Resolved Time COVID - 19 07/01/2022 08/19/2022 08/29/2022 12:1 6 AM RESEARCH CONSULTANT COVID - 19 10/07/2022 12/23/2022 01/02/2023 12:1 6 AM CDT documented as of this encounter Care Teams Control Manager Relationship Specialty Start Date End Date Trupti Spence MD PCP - General Family Medicine 02/19/16 11/23/22 Provider, Unknown UNKNOWN PCP - General 11/25/22 12/03/22 Evette Melo MD UNKNOWN PCP - General Family Medicine 12/04/22 04/12/24 Norma May MD [address] [place] [address] PCP - General Family Medicine 04/13/24 Meryl Martinez APRN, RESTAURANT AND BAR MANAGER #2 [facility], [address] [place] [address] Nurse Practitioner Cardiology 07/25/24 documented as of this encounter
--- OUTSIDE RECORDS SUMMARY | 2025-03-13 09:16 | XMS_ITS | Encounter Summary ---
Author Organization [facility] Address [address] [place] [address] Phone Care Team Providers Care Manager People Name Role Phone Trupti Spence MD Primary Care Provider [phone] Provider, Unknown Primary Care Provider Unavaila Evette Persaud MD Primary Care Provider Unavailable Norma May MD Primary Care Provider Meryl Martinez APRN, BANQUET HOUSEPERSON Unavailable [phone]- [phone] Encounter Details Date Type Department Care Team (Late st Contact Info) Description 05/06/2022 Lab Requisition [facility] Laboratory Services 1 [place] [address] Louie Purdy MD [address] [place] [address] [address] [place] [address] Encounter for screening for COVID-19 Social History [...] Visit [facility] - Cardiology [facility] #2 [place] [address] Liss Jo APRN, BANQUET HOUSEPERSON #2 [place] [address] documented as of this encounter Procedures Procedure Name Priority Date/Time Associated Diagnosis Comments SARS-COV-2 BY MOLECULAR Routine 05/06/2022 8:42 AM CDT Encounter for screening for COVID-19 documented in this encounter Results * SARS-COV-2 BY MOLECULAR (05/06/2022 8:42 AM CDT) SARSCOV2 NOT DETECTED (Referen ce Range for this test is Not Detected ) [facility] THERMOFISHER FAST DX 05/07/2022 12:23 AM CDT [facility] Comment:This test was perfor med by a RT-PCR method. Other Non-Phlebotomy Collection / Unknown 05/06/2022 8:42 AM CDT 05/06/2022 1:20 PM CDT Narrative [facility] - 05/07/2022 12:23 AM CDT Authorized Fact Sheets about this test for providers and patients are available at: https://www.fda.gov/medical-devices/ljbkdecwr-goqfylxbvj-wucyjeb-devices/emergen -us e-authorizations us Louie Purdy MD MICROBIOLOGY - GENERAL ORDERAB LES Final Result [facility] [address] [facility] [place] [address], documented in this encounter Visit Diagnoses Diagnosis Encounter for screening for COVID-19 documented in this encounter Additional Health Concerns Infection Onset Date Last Indicated Resolved Time COVID - 19 04/29/2022 06/03/2022 06/13/2022 12:1 6 AM CDT COVID - 19 06/17/2022 06/17/2022 06/27/2022 12:1 6 AM CDT COVID - 19 07/01/2022 08/19/2022 08/29/2022 12:1 6 AM AERONAUTICAL ENGINEERING OFFICER COVID - 19 10/07/2022 12/23/2022 01/02/2023 12:1 6 AM CDT documented as of this encounter Care Teams Manager People Relationship Specialty Start Date End Date Trupti Spence MD PCP - General Family Medicine 02/19/16 11/23/22 Provider, Unknown UNKNOWN PCP - General 11/25/22 12/03/22 Evette Melo MD UNKNOWN PCP - General Family Medicine 12/04/22 04/12/24 Norma May MD [address] [place] [address] PCP - General Family Medicine 04/13/24 Meryl Martinez APRN, BANQUET HOUSEPERSON [address]2 [facility], [address] [place] [address] Nurse Practitioner Cardiology 07/25/24 documented as of this encounter
--- OUTSIDE RECORDS SUMMARY | 2025-03-13 09:16 | XMS_ITS | Encounter Summary ---
Author Organization [facility] Address [address] [address] Phone Care Team Providers Care Children'S Book Author Name Role Phone Provider, Unknown Primary Care Provider Unavaila Evette Persaud MD Primary Care Provider Unavailable Norma May MD Primary Care Provider [phone]- [phone] Meryl Martinez APRN, MARKETING GRAPHICS SPECIALIST Unavailable [phone]- [phone] Encounter Details Date Type Department Care Team (Late st Contact Info) Description 11/25/2022 Lab Requisition [facility] Laboratory Services 1 [place] [id number] Louie Purdy MD [address] [place] [address] [place] [address] Encounter for screening for COVID-19 Social History [...] Description 07/24/2025 11:00 AM CDT Office Visit [facility] - Cardiology - [place] #2 [place] [address] Liss Jo, SOFT SUGAR OPERATOR HEAD, MARKETING GRAPHICS SPECIALIST #2 [place] [address] documented as of this encounter Procedures Procedure Name Priority Date/Time Associated Diagnosis Comments SARS-COV-2 BY MOLECULAR Routine 11/25/2022 8:40 AM ACCOUNT SUPPORT ANALYST Encounter for screening for COVID-19 documented in this encounter Results * SARS-COV-2 BY MOLECULAR (11/25/2022 8:40 AM ACCOUNT SUPPORT ANALYST) SARSCOV2 NOT DETECTED (Referen ce Range for this test is Not Detected ) [facility] THERMOFISHER FAST DX 11/25/2022 8:07 PM ACCOUNT SUPPORT ANALYST [facility] Comment:This test was perfor med by a RT-PCR method. Other No Phlebotomy Charged / Unknown 11/25/2022 8:40 AM ACCOUNT SUPPORT ANALYST 11/25/2022 9:56 AM ACCOUNT SUPPORT ANALYST Narrative [facility] - 11/25/2022 8:07 PM ACCOUNT SUPPORT ANALYST Authorized Fact Sheets about this test for providers and patients are available at: https://www.fda.gov/medical-devices/bnnlyphdh-qibnohtpgo-kaafhuz-devices/emergen -us e-authorizations us Louie Purdy MD MICROBIOLOGY - GENERAL ORDERAB LES Final Result [facility] [address] [place] [address], documented in this encounter Visit Diagnoses Diagnosis Encounter for screening for COVID-19 documented in this encounter Additional Health Concerns Infection Onset Date Last Indicated Resolved Time COVID - 19 10/07/2022 12/23/2022 01/02/2023 12:1 6 AM CDT documented as of this encounter Care Teams Children'S Book Author Relationship Specialty Start Date End Date Provider, Unknown UNKNOWN PCP - General 11/25/22 12/03/22 Evette Melo MD UNKNOWN PCP - General Family Medicine 12/04/22 04/12/24 Norma May MD [address] [place] [address] PCP - General Family Medicine 04/13/24 Meryl Martinez, SOFT SUGAR OPERATOR HEAD, MARKETING GRAPHICS SPECIALIST #2 [facility], [address] [place] [address] Nurse Practitioner Cardiology 07/25/24 documented as of this encounter
--- OUTSIDE RECORDS SUMMARY | 2025-03-13 09:16 | XMS_ITS | Encounter Summary ---
Author Organization [facility] Address [address] [place] [address] Phone Care Team Providers Care Manager Field Name Role Phone Trupti Spence MD Primary Care Provider Provider, Unknown Primary Care Provider Unavaila Evette Persaud MD Primary Care Provider Unavailable Norma May MD Primary Care Provider Meryl Martinez APRN, NAVIGATION OFFICER Unavailable [phone]- [phone] Encounter Details Date Type Department Care Team (Late st Contact Info) Description 12/17/2021 Lab Requisition [facility] Laboratory Services 1 [place] [address] Louie Purdy MD [address] [place] [address] [address] [place] [address] Encounter for screening for COVID-19 Social History [...] Office Visit [facility] - Cardiology [facility] #2 [place] [address] Liss Jo APRN, NAVIGATION OFFICER [address] [place] [address] documented as of this encounter Procedures Procedure Name Priority Date/Time Associated Diagnosis Comments SARS-COV-2 BY MOLECULAR Routine 12/17/2021 7:46 AM WEB SERVICES DEVELOPER Encounter for screening for COVID-19 documented in this encounter Results * SARS-COV-2 BY MOLECULAR (12/17/2021 7:46 AM WEB SERVICES DEVELOPER) SARSCOV2 NOT DETECTED (Referen ce Range for this test is Not Detected ) [facility] THERMOFISHER FAST DX 12/17/2021 11:03 PM WEB SERVICES DEVELOPER [facility] Comment:This test was perfor med by a RT-PCR method. Other Non-Phlebotomy Collection / Unknown 12/17/2021 7:46 AM WEB SERVICES DEVELOPER 12/17/2021 10:54 AM WEB SERVICES DEVELOPER Narrative [facility] - 12/17/2021 11:03 PM WEB SERVICES DEVELOPER Authorized Fact Sheets about this test for providers and patients are available at: https://www.fda.gov/medical-devices/hdtdwpqtz-ydiorpoofd-gqxcqkx-devices/emergen cy-us e-authorizations us Louie Purdy MD MICROBIOLOGY - GENERAL ORDERAB LES Final Result [facility] [address] [place] [address], documented in this encounter Visit Diagnoses Diagnosis [...] 19 07/01/2022 08/19/2022 08/29/2022 12:1 6 AM WEB SERVICES DEVELOPER COVID - 19 10/07/2022 12/23/2022 01/02/2023 12:1 6 AM CDT documented as of this encounter Care Teams Manager Field Relationship Specialty Start Date End Date Trupti Spence MD PCP - General Family Medicine 02/19/16 11/23/22 Provider, Unknown UNKNOWN PCP - General 11/25/22 12/03/22 Evette Melo MD UNKNOWN PCP - General Family Medicine 12/04/22 04/12/24 Norma May MD [address] [place] [address] PCP - General Family Medicine 04/13/24 Meryl Martinez APRN, NAVIGATION OFFICER #2 [facility], [address] [place] [address] Nurse Practitioner Cardiology 07/25/24 documented as of this encounter
--- OUTSIDE RECORDS SUMMARY | 2025-03-13 09:16 | XMS_ITS | Encounter Summary ---
Author Organization [facility] Address [address] [place] [address] Phone Care Team Providers Care Bottom Cager Name Role Phone Trupti Spence MD Primary Care Provider Provider, Unknown Primary Care Provider Unavaila Evette Persaud MD Primary Care Provider Unavailable Norma May MD Primary Care Provider Meryl Martinez APRN, VICE PROVOST Unavailable [phone]- [phone] Encounter Details Date Type Department Care Team (Late st Contact Info) Description 10/28/2022 Lab Requisition [facility] Laboratory Services 1 [place] [address] Louie Purdy MD [address] [place] [address] [address] [place] [address] Encounter for screening for COVID-19 Social History [...] Office Visit [facility] - Cardiology [facility] #2 [place] [address] Liss Jo APRN, VICE PROVOST [address]2 [place] [address] documented as of this encounter Procedures Procedure Name Priority Date/Time Associated Diagnosis Comments SARS-COV-2 BY MOLECULAR Routine 10/28/2022 8:10 AM SENIOR NET ENGINEER Encounter for screening for COVID-19 documented in this encounter Results * SARS-COV-2 BY MOLECULAR (10/28/2022 8:10 AM SENIOR NET ENGINEER) SARSCOV2 NOT DETECTED (Referen ce Range for this test is Not Detected ) [facility] THERMOFISHER FAST DX 10/29/2022 12:39 AM SENIOR NET ENGINEER [facility] Comment:This test was perfor med by a RT-PCR method. Other Non-Phlebotomy Collection / Unknown 10/28/2022 8:10 AM SENIOR NET ENGINEER 10/28/2022 11:50 AM SENIOR NET ENGINEER Narrative [facility] - 10/29/2022 12:39 AM SENIOR NET ENGINEER Authorized Fact Sheets about this test for providers and patients are available at: https://www.fda.gov/medical-devices/nzitnhgbe-kxdebtjpdv-qeaqyzc-devices/emergen cy-us e-authorizations us Louie Purdy MD MICROBIOLOGY - GENERAL ORDERAB LES Final Result [facility] [address] [place] [address], documented in this encounter Visit Diagnoses Diagnosis Encounter for screening for COVID-19 documented in this encounter Additional Health Concerns Infection Onset Date Last Indicated Resolved Time COVID - 19 10/07/2022 12/23/2022 01/02/2023 12:1 6 AM CDT documented as of this encounter Care Teams Bottom Cager Relationship Specialty Start Date End Date Trupti Spence MD PCP - General Family Medicine 02/19/16 11/23/22 Provider, Unknown UNKNOWN PCP - General 11/25/22 12/03/22 Evette Melo MD UNKNOWN PCP - General Family Medicine 12/04/22 04/12/24 Norma May MD [address] [place] [address] PCP - General Family Medicine 04/13/24 Meryl Martinez APRN, VICE PROVOST #2 [facility], [address] [place] [address] Nurse Practitioner Cardiology 07/25/24 documented as of this encounter
--- OUTSIDE RECORDS SUMMARY | 2025-03-13 09:16 | XMS_ITS | Encounter Summary ---
Author Organization [facility] Address [address] [place] [address] Phone Care Team Providers Care Home Attendant Name Role Phone Trupti Spence MD Primary Care Provider [phone] Provider, Unknown Primary Care Provider Unavaila Evette Persaud MD Primary Care Provider Unavailable Norma May MD Primary Care Provider Meryl Martinez APRN, YARD CONDUCTOR Unavailable [phone]- [phone] Encounter Details Date Type Department Care Team (Late st Contact Info) Description 06/17/2022 Lab Requisition [facility] Laboratory Services 1 [place] [address] Louie Purdy MD [address] [place] [address] [address] [place] [address] Encounter for screening for COVID-19 Social History [...] Office Visit [facility] - Cardiology [facility] #2 [place] [address] Liss Jo APRN, YARD CONDUCTOR #2 [place] [address] documented as of this encounter Procedures Procedure Name Priority Date/Time Associated Diagnosis Comments SARS-COV-2 BY MOLECULAR Routine 06/17/2022 8:00 AM CDT Encounter for screening for COVID-19 documented in this encounter Results * SARS-COV-2 BY MOLECULAR (06/17/2022 8:00 AM CDT) SARSCOV2 NOT DETECTED (Referen ce Range for this test is Not Detected ) [facility] THERMOFISHER FAST DX 06/18/2022 1:11 PM CDT [facility] Comment:This test was perfor med by a RT-PCR method. Other COVID 19 Home Health/ Long Term Facility Collection / Unknown 06/17/2022 8:00 AM CDT 06/17/2022 2:07 PM CDT Narrative [facility] - 06/18/2022 1:11 PM CDT Authorized Fact Sheets about this test for providers and patients are available at: https://www.fda.gov/medical-devices/unazhzqpl-xdutrkrelj-zakftcd-devices/emergen -us e-authorizations Louie Purdy MD MICROBIOLOGY - GENERAL ORDERAB LES Final Result [facility] [address] [place] [address], documented in this encounter Visit Diagnoses Diagnosis Encounter for screening for COVID-19 documented in this encounter Additional Health Concerns Infection Onset Date Last Indicated Resolved Time COVID - 19 06/17/2022 06/17/2022 06/27/2022 12:1 6 AM CDT COVID - 19 07/01/2022 08/19/2022 08/29/2022 12:1 6 AM BLOCKER AND CUTTER CONTACT LENS COVID - 19 10/07/2022 12/23/202201/02/2023 12:1 6 AM CDT documented as of this encounter Care Teams Home Attendant Relationship Specialty Start Date End Date Trupti Spence MD PCP - General Family Medicine 02/19/16 11/23/22 Provider, Unknown UNKNOWN PCP - General 11/25/22 12/03/22 Evette Melo MD UNKNOWN PCP - General Family Medicine 12/04/22 04/12/24 Norma May MD [address] [place] [address] PCP - General Family Medicine 04/13/24 Meryl Martinez APRN, YARD CONDUCTOR #2 [facility], [address] [place] [address] Nurse Practitioner Cardiology 07/25/24 documented as of this encounter
--- OUTSIDE RECORDS SUMMARY | 2025-03-13 09:16 | XMS_ITS | Encounter Summary ---
Author Organization [facility] Address [address] [place] [address] Phone Care Team Providers Care Dye And Chemical Coordinator Name Role Phone Trupti Spence MD Primary Care Provider [phone] Provider, Unknown Primary Care Provider Unavaila Evette Persaud MD Primary Care Provider Unavailable Norma May MD Primary Care Provider Meryl Martinez APRN, PROTECTION SPECIALIST Unavailable [phone]- [phone] Encounter Details Date Type Department Care Team (Late st Contact Info) Description 10/21/2022 Lab Requisition [facility] Laboratory Services 1 [place] [address] Louie Purdy MD [address] [place] [address] [address] [place] [address] Encounter for screening for COVID-19 Social History [...] Office Visit [facility] - Cardiology [facility] #2 [place] [address] Liss Jo APRN, PROTECTION SPECIALIST #2 [place] [address] documented as of this encounter Procedures Procedure Name Priority Date/Time Associated Diagnosis Comments SARS-COV-2 BY MOLECULAR Routine 10/21/2022 8:36 AM CLINICAL INFORMATICS PHYSICIAN Encounter for screening for COVID-19 documented in this encounter Results * SARS-COV-2 BY MOLECULAR (10/21/2022 8:36 AM CLINICAL INFORMATICS PHYSICIAN) SARSCOV2 NOT DETECTED (Referen ce Range for this test is Not Detected ) [facility] THERMOFISHER FAST DX 10/21/2022 11:22 PM CLINICAL INFORMATICS PHYSICIAN [facility] Comment:This test was perfor med by a RT-PCR method. Other Non-Phlebotomy Collection / Unknown 10/21/2022 8:36 AM CLINICAL INFORMATICS PHYSICIAN 10/21/2022 10:55 AM CLINICAL INFORMATICS PHYSICIAN Narrative [facility] - 10/21/2022 11:22 PM CLINICAL INFORMATICS PHYSICIAN Authorized Fact Sheets about this test for providers and patients are available at: https://www.fda.gov/medical-devices/emdixdldq-wtaaykukmm-zmqrqcu-devices/emergen cy-us e-authorizations us Louie Purdy MD MICROBIOLOGY - GENERAL ORDERAB LES Final Result [facility] [address] [place] [address], documented in this encounter Visit Diagnoses Diagnosis Encounter for screening for COVID-19 documented in this encounter Additional Health Concerns Infection Onset Date Last Indicated Resolved Time COVID - 19 10/07/2022 12/23/2022 01/02/2023 12:1 6 AM CDT documented as of this encounter Care Teams Dye And Chemical Coordinator Relationship Specialty Start Date End Date Trupti Spence MD PCP - General Family Medicine 02/19/16 11/23/22 Provider, Unknown UNKNOWN PCP - General 11/25/22 12/03/22 Evette Melo MD UNKNOWN PCP - General Family Medicine 12/04/22 04/12/24 Norma May MD [address] [place] [address] PCP - General Family Medicine 04/13/24 Meryl Martinez APRN, PROTECTION SPECIALIST #2 [facility], [address] [place] [address] Nurse Practitioner Cardiology 07/25/24 documented as of this encounter
--- OUTSIDE RECORDS SUMMARY | 2025-03-13 09:16 | XMS_ITS | Encounter Summary ---
Author Organization [facility] Address [address] [place] [address] Phone Care Team Providers Care Casting Agent Name Role Phone Trupti Spence MD Primary Care Provider [phone] Provider, Unknown Primary Care Provider Unavaila Evette Persaud MD Primary Care Provider Unavailable Norma May MD Primary Care Provider Meryl Martinez APRN, GRINDER HAND Unavailable [phone]- [phone] Encounter Details Date Type Department Care Team (Late st Contact Info) Description 11/11/2022 Lab Requisition [facility] Laboratory Services 1 [place] [address] Louie Purdy MD [address] [place] [address] [address] [place] [address] Encounter for screening for COVID-19 Social History [...] Office Visit [facility] - Cardiology [facility] #2 [place] [address] Liss Jo APRN, GRINDER HAND #[address] [place] [address] documented as of this encounter Procedures Procedure Name Priority Date/Time Associated Diagnosis Comments SARS-COV-2 BY MOLECULAR Routine 11/11/2022 8:12 AM PENCILS WASHER Encounter for screening for COVID-19 documented in this encounter Results * SARS-COV-2 BY MOLECULAR (11/11/2022 8:12 AM PENCILS WASHER) SARSCOV2 NOT DETECTED (Referen ce Range for this test is Not Detected ) [facility] THERMOFISHER FAST DX 11/11/2022 9:47 PM PENCILS WASHER [facility] Comment:This test was perfor med by a RT-PCR method. Other Non-Phlebotomy Collection / Unknown 11/11/2022 8:12 AM PENCILS WASHER 11/11/2022 10:04 AM PENCILS WASHER Narrative [facility] - 11/11/2022 9:47 PM PENCILS WASHER Authorized Fact Sheets about this test for providers and patients are available at: https://www.fda.gov/medical-devices/qybcpjisc-ncnijveycg-rbgltmp-devices/emergen cy-us e-authorizations us Louie Purdy MD MICROBIOLOGY - GENERAL ORDERAB LES Final Result [facility] [address] [place] [address], documented in this encounter Visit Diagnoses Diagnosis Encounter for screening for COVID-19 documented in this encounter Additional Health Concerns Infection Onset Date Last Indicated Resolved Time COVID - 19 10/07/2022 12/23/2022 01/02/2023 12:1 6 AM CDT documented as of this encounter Care Teams Casting Agent Relationship Specialty Start Date End Date Trupti Spence MD PCP - General Family Medicine 02/19/16 11/23/22 Provider, Unknown UNKNOWN PCP - General 11/25/22 12/03/22 Evette Melo MD UNKNOWN PCP - General Family Medicine 12/04/22 04/12/24 Norma May MD [address] [place] [address] PCP - General Family Medicine 04/13/24 Meryl Martinez APRN, GRINDER HAND #[address] [facility], [address] [place] [address] Nurse Practitioner Cardiology 07/25/24 documented as of this encounter
--- OUTSIDE RECORDS SUMMARY | 2025-03-13 09:16 | XMS_ITS | Encounter Summary ---
Author Organization [facility] Address [address] [place] [address] Phone Care Team Providers Care Aesthetics Instructor Name Role Phone Trupti Spence MD Primary Care Provider Provider, Unknown Primary Care Provider Unavaila Evette Persaud MD Primary Care Provider Unavailable Norma May MD Primary Care Provider Meryl Martinez APRN, BIOMETRICS CONSULTANT Unavailable [phone]- [phone] Encounter Details Date Type Department Care Team (Late st Contact Info) Description 11/26/2021 Lab Requisition [facility] Laboratory Services 1 [place] [address] Louie Purdy MD [address] [place] [address] [address] [place] [address] Encounter for screening for COVID-19 Social History [...] - Cardiology [facility] #2 [place] [address] Liss Jo APRN, BIOMETRICS CONSULTANT #2 [place] [address] documented as of this encounter Procedures Procedure Name Priority Date/Time Associated Diagnosis Comments SARS-COV-2 BY MOLECULAR Routine 11/26/2021 7:45 AM INDIVIDUAL PENSION CONSULTANT Encounter for screening for COVID-19 documented in this encounter Results * SARS-COV-2 BY MOLECULAR (11/26/2021 7:45 AM INDIVIDUAL PENSION CONSULTANT) SARSCOV2 NOT DETECTED (Referenc e Range for this test is Not Detected) [facility] [place] [id number] 11/27/2021 12:09 PM INDIVIDUAL PENSION CONSULTANT [facility] Comment:This test was perfor med by a RT-PCR method. Other Non-Phlebotomy Collection / Unknown 11/26/2021 7:45 AM INDIVIDUAL PENSION CONSULTANT 11/26/2021 10:52 AM INDIVIDUAL PENSION CONSULTANT Narrative [facility] - 11/27/2021 12:09 PM INDIVIDUAL PENSION CONSULTANT Authorized Fact Sheets about this test for providers and patients are available at: https://www.fda.gov/medical-devices/exyhqgvhl-iaurblmxgb-yckeazj-devices/emergen -us e-authorizations us Louie Purdy MD MICROBIOLOGY - GENERAL ORDERAB LES Final Result [facility] [address] [place] [address], documented in this encounter Visit Diagnoses Diagnosis [...] 19 07/01/2022 08/19/2022 08/29/2022 12:1 6 AM INDIVIDUAL PENSION CONSULTANT COVID - 19 10/07/2022 12/23/2022 01/02/2023 12:1 6 AM CDT documented as of this encounter Care Teams Aesthetics Instructor Relationship Specialty Start Date End Date Trupti Spence MD PCP - General Family Medicine 02/19/16 11/23/22 Provider, Unknown UNKNOWN PCP - General 11/25/22 12/03/22 Evette Melo MD UNKNOWN PCP - General Family Medicine 12/04/22 04/12/24 Norma May MD [address] [place] [address] PCP - General Family Medicine 04/13/24 Meryl Martinez APRN, BIOMETRICS CONSULTANT #2 [facility], [address] [place] [address] Nurse Practitioner Cardiology 07/25/24 documented as of this encounter
--- OUTSIDE RECORDS SUMMARY | 2025-03-13 09:16 | XMS_ITS | Continuity of Care Document ---
Author Organization [facility] Address [address] [place] [address] Phone Care Team Providers Care Margin Analyst Name Role Phone Evangelista Ahumada MD Unavailable Unavailable Advance Directives Directive Yes / No Effective Date File Name No Information Encounters Encounter Description Practice Location Reason(s) For Visit Diagnoses Date Provider Providers Copied on Encounter [facility], [address], [place], [place], [id number], [place] tel:[phone] [facility] No Information Brandyn Naidu. [address] [place], [place], [id number], [place]. tel:[phone] Referring Provider: Trupti Spence, [address] [place] [address], [address]. tel:[phone] Family History Family Member Type Diagnosis Age At Onset No Information Payers Payer name Insurance type Covered alliance party ID Authoriza tion(s) MEDICARE MB [id number] [facility] [id number] Social History Type Description Quantity Date Captured Comments Sex Female Smoking Status No Information Chief Complaint And Reason For Visit No Information Reason For Referral Reason For Referral No Information History Of Present Illness Encounter Date Complaint History Of Prese nt Illness No Information Functional Status Date Functional Assessmen t No Information Instructions Date Instruction Additional Infor mation No Information Assessments Type Assessment Date No Information Patient Care Teams Name Effective Dates (start - stop) Status Members No Information
--- OUTSIDE RECORDS SUMMARY | 2025-03-13 09:16 | XMS_ITS | Encounter Summary ---
Author Organization [facility] Address [address] [place] [address] Phone Care Team Providers Care Instructor Modeling Name Role Phone Trupti Spence MD Primary Care Provider Provider, Unknown Primary Care Provider Unavaila Evette Persaud MD Primary Care Provider Unavailable Norma May MD Primary Care Provider Meryl Martinez APRN, PHOTOGRAPHIC PROCESS WORKER Unavailable [phone]- [phone] Encounter Details Date Type Department Care Team (Late st Contact Info) Description 07/15/2022 Lab Requisition [facility] Services [address] [place] [address] Louie Purdy MD [address] [place] [address] [address] [place] [address] Encounter for screening for COVID-19 Social History [...] Office Visit [facility] - [facility]iology [facility] #2 [place] [address] Liss Jo APRN, PHOTOGRAPHIC PROCESS WORKER #2 [place] [address] documented as of this encounter Procedures Procedure Name Priority Date/Time Associated Diagnosis Comments SARS-COV-2 BY MOLECULAR Routine 07/15/2022 8:46 AM CDT Encounter for screening for COVID-19 documented in this encounter Results * SARS-COV-2 BY MOLECULAR (07/15/2022 8:46 AM CDT) SARSCOV2 NOT DETECTED (Referen ce Range for this test is Not Detected ) [facility] THERMOFISHER FAST DX 07/16/2022 8:54 AM CDT [facility] Comment:This test was perfor med by a RT-PCR method. Other No Phlebotomy Charged / Unknown 07/15/2022 8:46 AM CDT 07/15/2022 1:15 PM CDT Narrative [facility] - 07/16/2022 8:54 AM CDT Authorized Fact Sheets about this test for providers and patients are available at: https://www.fda.gov/medical-devices/asgneklhf-oryrwuxyjl-ifndrek-devices/emergen -us e-authorizations us Louie Purdy MD MICROBIOLOGY - GENERAL ORDERAB LES Final Result [facility] [address] [place] [address], documented in this encounter Visit Diagnoses Diagnosis Encounter for screening for COVID-19 documented in this encounter Additional Health Concerns Infection Onset Date Last Indicated Resolved Time COVID - 19 07/01/2022 08/19/2022 08/29/2022 12:1 6 AM SHACTOR COVID - 19 10/07/2022 12/23/2022 01/02/2023 12:1 6 AM CDT documented as of this encounter Care Teams Instructor Modeling Relationship Specialty Start Date End Date Trupti Spence MD PCP - General Family Medicine 02/19/16 11/23/22 Provider, Unknown UNKNOWN PCP - General 11/25/22 12/03/22 Evette Melo MD UNKNOWN PCP - General Family Medicine 12/04/22 04/12/24 Norma May MD [address] [place] [address] PCP - General Family Medicine 04/13/24 Meryl Martinez APRN, PHOTOGRAPHIC PROCESS WORKER #2 [facility], [address] [place] [address] Nurse Practitioner Cardiology 07/25/24 documented as of this encounter
--- OUTSIDE RECORDS SUMMARY | 2025-03-13 09:16 | XMS_ITS | Encounter Summary ---
Author Organization [facility] Address [address] [place] [address] Phone Care Team Providers Care Helper Shear Operator Name Role Phone Trupti Spence MD Primary Care Provider Provider, Unknown Primary Care Provider Unavaila Evette Persaud MD Primary Care Provider Unavailable Norma May MD Primary Care Provider Meryl Martinez APRN, GREEN PRIZE PACKER Unavailable [phone]- [phone] Encounter Details Date Type Department Care Team (Late st Contact Info) Description 07/22/2022 Lab Requisition [facility] Laboratory Services 1 [place] [address] Louie Purdy MD [address] [place] [address] [address] [place] [address] Encounter for screening for COVID-19 Social History [...] Office Visit [facility] - [facility]iology [facility] #2 [place] [phone] Liss Jo APRN, GREEN PRIZE PACKER [address] [place] [address] documented as of this encounter Procedures Procedure Name Priority Date/Time Associated Diagnosis Comments SARS-COV-2 BY MOLECULAR Routine 07/22/2022 8:35 AM CDT Encounter for screening for COVID-19 documented in this encounter Results * SARS-COV-2 BY MOLECULAR (07/22/2022 8:35 AM CDT) SARSCOV2 NOT DETECTED (Referen ce Range for this test is Not Detected ) [facility] THERMOFISHER FAST DX 07/23/2022 12:[address] [facility] Comment:This test was perfor med by a RT-PCR method. Other Non-Phlebotomy Collection / Unknown 07/22/2022 8:35 AM CDT 07/22/2022 11:[address] [facility] - 07/23/2022 12:18 AM CDT Authorized Fact Sheets about this test for providers and patients are available at: https://www.fda.gov/medical-devices/llzohanip-zfqfggxzwx-mjmankg-devices/emergen -us e-authorizations us Louie Purdy MD MICROBIOLOGY - GENERAL ORDERAB LES Final Result [facility] [address] [place] [address], documented in this encounter Visit Diagnoses Diagnosis Encounter for screening for COVID-19 documented in this encounter Additional Health Concerns Infection Onset Date Last Indicated Resolved Time COVID - 19 07/01/2022 08/19/2022 08/29/2022 12:1 6 AM IMPORT SPECIALIST COVID - 19 10/07/2022 12/23/2022 01/02/2023 12:1 6 AM CDT documented as of this encounter Care Teams Helper Shear Operator Relationship Specialty Start Date End Date Trupti Spence MD PCP - General Family Medicine 02/19/16 11/23/22 Provider, Unknown UNKNOWN PCP - General 11/25/22 12/03/22 Evette Melo MD UNKNOWN PCP - General Family Medicine 12/04/22 04/12/24 Norma May MD [address] [place] [address] PCP - General Family Medicine 04/13/24 Meryl Martinez APRN, GREEN PRIZE PACKER #2 [facility], [address] [place] [address] Nurse Practitioner Cardiology 07/25/24 documented as of this encounter
--- OUTSIDE RECORDS SUMMARY | 2025-03-13 09:16 | XMS_ITS | Encounter Summary ---
Author Organization [facility] Address [address] [place] [address] Phone Care Team Providers Care Low Pressure Firer Name Role Phone Trupti Spence MD Primary Care Provider Provider, Unknown Primary Care Provider Unavaila Evette Persaud MD Primary Care Provider Unavailable Norma May MD Primary Care Provider Meryl Martinez APRN, ROVING FRAME TENDER Unavailable [phone]- [phone] Encounter Details Date Type Department Care Team (Late st Contact Info) Description 10/14/[address] [facility] Laboratory Services 1 [place] [address] Louie Purdy MD [address] [place] [address] [address] [place] [address] Encounter for screening for COVID-19 Social History [...] Office Visit [facility] - Cardiology [facility] #2 [place] [address] Liss Jo APRN, ROVING FRAME TENDER #[address] [place] [address] documented as of this encounter Procedures Procedure Name Priority Date/Time Associated Diagnosis Comments SARS-COV-2 BY MOLECULAR Routine 10/14/2022 8:25 AM FACING BASTER Encounter for screening for COVID-19 documented in this encounter Results * SARS-COV-2 BY MOLECULAR (10/14/2022 8:25 AM FACING BASTER) SARSCOV2 NOT DETECTED (Referen ce Range for this test is Not Detected ) [facility] THERMOFISHER FAST DX 10/14/2022 9:20 PM FACING BASTER [facility] Comment:This test was perfor med by a RT-PCR method. Other No Phlebotomy Charged / Unknown 10/14/2022 8:25 AM FACING BASTER 10/14/2022 10:07 AM FACING BASTER Narrative [facility] - 10/14/2022 9:20 PM FACING BASTER Authorized Fact Sheets about this test for providers and patients are available at: https://www.fda.gov/medical-devices/bwhodttup-aplogazhim-spkgtfh-devices/emergen cy-us e-authorizations us Louie Purdy MD MICROBIOLOGY - GENERAL ORDERAB LES Final Result [facility] [address] [place] [address], documented in this encounter Visit Diagnoses Diagnosis Encounter for screening for COVID-19 documented in this encounter Additional Health Concerns Infection Onset Date Last Indicated Resolved Time COVID - 19 10/07/2022 12/23/2022 01/02/2023 12:1 6 AM CDT documented as of this encounter Care Teams Low Pressure Firer Relationship Specialty Start Date End Date Trupti Spence MD PCP - General Family Medicine 5/11/16 2/13/23 Provider, Unknown UNKNOWN PCP - General 11/25/22 12/03/22 Evette Melo MD UNKNOWN PCP - General Family Medicine 12/04/22 04/12/24 Norma May MD [address] [place] [address] PCP - General Family Medicine 04/13/24 Meryl Martinez APRN, ROVING FRAME TENDER #2 [facility], [address] [place] [address] Nurse Practitioner Cardiology 07/25/24 documented as of this encounter
--- OUTSIDE RECORDS SUMMARY | 2025-03-13 09:16 | XMS_ITS | Encounter Summary ---
Author Organization [facility] Address [address] [place] [address] Phone Care Team Providers Care Steam Fitter Supervisor Name Role Phone Provider, Unknown Primary Care Provider Unavaila Evette Persaud MD Primary Care Provider Unavailable Norma May MD Primary Care Provider [phone] Meryl Martinez APRN, VP CLINICAL RESEARCH Unavailable [phone]- [phone] Encounter Details Date Type Department Care Team (Late st Contact Info) Description 12/02/2022 [facility] 1 [place] [phone] Louie Purdy MD [address] [place] [address] [place] [address] Encounter for screening for COVID-19 Social History [...] Description 07/24/2025 11:00 AM CDT Office Visit [facility] - Cardiology - [place] #[address] [place] [address] Liss Jo, TECHNOLOGY TEACHER, VP CLINICAL RESEARCH #[address] [place] [address] documented as of this encounter Procedures Procedure Name Priority Date/Time Associated Diagnosis Comments SARS-COV-2 BY MOLECULAR Routine 12/02/2022 8:15 AM DIRECTOR EDUCATIONAL RADIO Encounter for screening for COVID-19 documented in this encounter Results * SARS-COV-2 BY MOLECULAR (12/02/2022 8:15 AM DIRECTOR EDUCATIONAL RADIO) SARSCOV2 NOT DETECTED (Referen ce Range for this test is Not Detected ) [facility] THERMOFISHER FAST DX 12/03/2022 11:35 AM DIRECTOR EDUCATIONAL RADIO [facility] Comment:This test was perfor med by a RT-PCR method. Other Non-Phlebotomy Collection / Unknown 12/02/2022 8:15 AM DIRECTOR EDUCATIONAL RADIO 12/02/2022 10:30 AM DIRECTOR EDUCATIONAL RADIO Narrative [facility] - 12/03/2022 11:35 AM DIRECTOR EDUCATIONAL RADIO Authorized Fact Sheets about this test for providers and patients are available at: https://www.fda.gov/medical-devices/kbqfatdnv-sllxjotuih-vpooval-devices/emergen -us e-authorizations us Louie Purdy MD MICROBIOLOGY - GENERAL ORDERAB LES Final Result [facility] [address] [place] [address], documented in this encounter Visit Diagnoses Diagnosis Encounter for screening for COVID-19 documented in this encounter Additional Health Concerns Infection Onset Date Last Indicated Resolved Time COVID - 19 10/07/2022 12/23/2022 01/02/2023 12:1 6 AM CDT documented as of this encounter Care Teams Steam Fitter Supervisor Relationship Specialty Start Date End Date Provider, Unknown UNKNOWN PCP - General 11/25/22 12/03/22 Evette Melo MD UNKNOWN PCP - General Family Medicine 12/04/22 04/12/24 Norma May MD [address] [place] [address] PCP - General Family Medicine 04/13/24 Meryl Martinez, TECHNOLOGY TEACHER, VP CLINICAL RESEARCH #2 [facility], [address] [place] [address] Nurse Practitioner Cardiology 07/25/24 documented as of this encounter
--- OUTSIDE RECORDS SUMMARY | 2025-03-13 09:16 | XMS_ITS | Encounter Summary ---
Author Organization [facility] Address [address] [place] [address] Phone Care Team Providers Care Rhic Systems Safety Engineer Name Role Phone Trupti Spence MD Primary Care Provider Provider, Unknown Primary Care Provider Unavaila Evette Persaud MD Primary Care Provider Unavailable Norma May MD Primary Care Provider Meryl Martinez APRN, SHEETER MACHINE OPERATOR Unavailable [phone] Encounter Details Date Type Department Care Team (Late st Contact Info) Description 10/15/2021 Lab Requisition [facility] Laboratory Services 1 [place] [address] Louie Purdy MD [address] [place] [address] [address] [place] [address] Encounter for screening for COVID-19 Social History [...] - Cardiology [facility] #2 [place] [address] Liss Jo APRN, SHEETER MACHINE OPERATOR #[address] [place] [address] documented as of this encounter Procedures Procedure Name Priority Date/Time Associated Diagnosis Comments SARS-COV-2 BY MOLECULAR Routine 10/15/2021 8:31 AM SCRUM PROJECT MANAGER Encounter for screening for COVID-19 documented in this encounter Results * SARS-COV-2 BY MOLECULAR (10/15/2021 8:31 AM SCRUM PROJECT MANAGER) SARSCOV2 NOT DETECTED (Referen ce Range for this test is Not Detected ) [facility] THERMOFISHER FAST DX 10/17/2021 7:20 PM SCRUM PROJECT MANAGER [facility] Comment:This test was perfor med by a RT-PCR method. Other Non-Phlebotomy Collection / Unknown 10/15/2021 8:31 AM SCRUM PROJECT MANAGER 10/15/2021 12:14 PM SCRUM PROJECT MANAGER Narrative [facility] - 10/17/2021 7:20 PM SCRUM PROJECT MANAGER Authorized Fact Sheets about this test for providers and patients are available at: https://www.fda.gov/medical-devices/sbaezfcai-kmhdxrowzf-otfzwls-devices/emergen cy-us e-authorizations us Louie Purdy MD MICROBIOLOGY - GENERAL ORDERAB LES Final Result [facility] [address] [place] [address], documented in this encounter Visit Diagnoses Diagnosis [...] 19 07/01/2022 08/19/2022 08/29/2022 12:1 6 AM SCRUM PROJECT MANAGER COVID - 19 10/07/2022 12/23/2022 01/02/2023 12:1 6 AM CDT documented as of this encounter Care Teams Rhic Systems Safety Engineer Relationship Specialty Start Date End Date Trupti Spence MD PCP - General Family Medicine 02/19/16 11/23/22 Provider, Unknown UNKNOWN PCP - General 11/25/22 12/03/22 Evette Melo MD UNKNOWN PCP - General Family Medicine 12/04/22 04/12/24 Norma May MD [address] [place] [address] PCP - General Family Medicine 04/13/24 Meryl Martinez APRN, SHEETER MACHINE OPERATOR #2 [facility], [address] [place] [address] Nurse Practitioner Cardiology 07/25/24 documented as of this encounter
--- OUTSIDE RECORDS SUMMARY | 2025-03-13 09:16 | XMS_ITS | Encounter Summary ---
Author Organization [facility] Address [address] [place] [address] Phone Care Team Providers Care Rotary Shear Worker Helper Name Role Phone Trupti Spence MD Primary Care Provider [phone] Provider, Unknown Primary Care Provider Unavaila Evette Persaud MD Primary Care Provider Unavailable Norma May MD Primary Care Provider Meryl Martinez APRN, CULLET WASHER Unavailable [phone]- [phone] Encounter Details Date Type Department Care Team (Late st Contact Info) Description 11/05/2022 Lab Requisition [facility] Laboratory Services [address] [place] [address] Louie Purdy MD [address] [place] [address] [address] [place] [address] Encounter for screening for COVID-19 Social History [...] Office Visit [facility] - Cardiology [facility] #2 [place] [address] Liss Jo APRN, CULLET WASHER #[address] [place] [address] documented as of this encounter Procedures Procedure Name Priority Date/Time Associated Diagnosis Comments SARS-COV-2 BY MOLECULAR Routine 11/05/2022 8:27 AM DISPLAYER Encounter for screening for COVID-19 documented in this encounter Results * SARS-COV-2 BY MOLECULAR (11/05/2022 8:27 AM DISPLAYER) SARSCOV2 NOT DETECTED (Referen ce Range for this test is Not Detected ) [facility] THERMOFISHER FAST DX 11/05/2022 5:12 PM DISPLAYER [facility] Comment:This test was perfor med by a RT-PCR method. Other Non-Phlebotomy Collection / Unknown 11/05/2022 8:27 AM DISPLAYER 11/05/2022 10:02 AM DISPLAYER Narrative [facility] - 11/05/2022 5:12 PM DISPLAYER Authorized Fact Sheets about this test for providers and patients are available at: https://www.fda.gov/medical-devices/mbjzolugm-qlittypvwv-bhsaqun-devices/emergen cy-us e-authorizations us Louie Purdy MD MICROBIOLOGY - GENERAL ORDERAB LES Final Result [facility] [address] [place] [address], documented in this encounter Visit Diagnoses Diagnosis Encounter for screening for COVID-19 documented in this encounter Additional Health Concerns Infection Onset Date Last Indicated Resolved Time COVID - 19 10/07/2022 12/23/2022 01/02/2023 12:1 6 AM CDT documented as of this encounter Care Teams Rotary Shear Worker Helper Relationship Specialty Start Date End Date Trupti Spence MD PCP - General Family Medicine 02/19/16 11/23/22 Provider, Unknown UNKNOWN PCP - General 11/25/22 12/03/22 Evette Melo MD UNKNOWN PCP - General Family Medicine 12/04/22 04/12/24 Norma May MD [address] [place] [address] PCP - General Family Medicine 04/13/24 Meryl Martinez APRN, CULLET WASHER #2 [facility], [address] [place] [address] Nurse Practitioner Cardiology 07/25/24 documented as of this encounter
--- OUTSIDE RECORDS SUMMARY | 2025-03-13 09:17 | XMS_ITS | Encounter Summary ---
Author Organization [facility] Address [address] [place] [address] Phone Care Team Providers Care Discovery Guide Name Role Phone Trupti Spence MD Primary Care Provider Provider, Unknown Primary Care Provider Unavaila Evette Persaud MD Primary Care Provider Unavailable Norma May MD Primary Care Provider Meryl Martinez APRN, ACTUARY MANAGER Unavailable [phone]- [phone] Encounter Details Date Type Department Care Team (Late st Contact Info) Description 07/02/2021 [facility] 1 [place] [phone] Louie Purdy MD [address] [place] [address] [facility] [address] [place] [address] Social History Tobacco Use Types Packs/Day Years [...] Medical Group - Cardiology [facility] #2 [place] [address] Sandro Lissbelkis Fernandez APRN, ACTUARY MANAGER #[address] [place] [address] documented as of this encounter Procedures Procedure Name Priority Date/Time Associated Diagnosis Comments SARS-COV-2 BY MOLECULAR Routine 07/02/2021 7:29 AM CDT documented in this encounter Results * SARS-COV-2 BY MOLECULAR (07/02/2021 7:29 AM CDT) SARSCOV2 NOT DETECTED (Referen ce Range for this test is Not Detected ) [facility] THERMOFISHER FAST DX 07/03/2021 10:56 AM CDT [facility] Comment:This test was perfor med by a RT-PCR method. Other Non-Phlebotomy Collection / Unknown 07/02/2021 7:29 AM CDT 07/02/2021 11:22 AM CDT Narrative [facility] - 07/03/2021 10:56 AM CDT Authorized Fact Sheets about this test for providers and patients are available at: https://www.fda.gov/medical-devices/gdfbevijo-xvvkscvzaf-selawto-devices/emergen -us e-authorizations us Louie Purdy MD MICROBIOLOGY - GENERAL ORDERAB LES Final Result Performing Organization Address City/State/[facility] Co de Phone Number [facility] [address] [place] [address], documented in this encounter Visit Diagnoses Not on filedocumented in this encounter Additional Health Concerns Infection Onset Date Last Indicated Resolved Time COVID - 19 07/02/2021 04/08/2022 04/08/2022 11:4 5 PM CDT COVID - 19 Confirmed 04/08/2022 04/08/2022 022 12:16 AM CDT COVID - 19 04/29/2022 06/03/2022 06/13/2022 12:1 6 AM CDT COVID - 19 06/17/2022 06/17/2022 06/27/2022 12:1 6 AM CDT COVID - 19 07/01/2022 08/19/2022 08/29/2022 12:1 6 AM TREE MARKER COVID - 19 10/07/2022 12/23/2022 01/02/2023 12:1 6 AM CDT documented as of this encounter Care Teams Discovery Guide Relationship Specialty Start Date End Date Trupti Spence MD PCP - General Family Medicine 02/19/16 11/23/22 Provider, Unknown UNKNOWN PCP - General 11/25/22 12/03/22 Evette Melo MD UNKNOWN PCP - General Family Medicine 12/04/22 04/12/24 Norma May MD [address] [place] [address] PCP - General Family Medicine 04/13/24 Meryl Martinez APRN, ACTUARY MANAGER #2 [facility], [address] [place] [address] Nurse Practitioner Cardiology 07/25/24 documented as of this encounter
--- OUTSIDE RECORDS SUMMARY | 2025-03-13 09:17 | XMS_ITS | Encounter Summary ---
Author Organization [facility] Address [address] [place] [address] Phone Care Team Providers Care General Engineer Name Role Phone Trupti Spence MD Primary Care Provider [phone] Provider, Unknown Primary Care Provider Unavaila Evette Persaud MD Primary Care Provider Unavailable Norma May MD Primary Care Provider Meryl Martinez APRN, AMMONIA SOLUTION PREPARER Unavailable [phone] Encounter Details Date Type Department Care Team (Late st Contact Info) Description 08/27/2021 Lab Requisition [facility] Laboratory Services 1 [place] [address] Louie Purdy MD [address] [place] [address] [address] [place] [address] Encounter for screening for COVID-19 Social History [...] Office Visit [facility] - Cardiology [facility] #2 [place] [phone] Liss Jo APRN, AMMONIA SOLUTION PREPARER [address] [place] [address] documented as of this encounter Procedures Procedure Name Priority Date/Time Associated Diagnosis Comments SARS-COV-2 BY MOLECULAR Routine 08/27/2021 8:33 AM RAILWAY EQUIPMENT OPERATOR Encounter for screening for COVID-19 documented in this encounter Results * SARS-COV-2 BY MOLECULAR (08/27/2021 8:33 AM RAILWAY EQUIPMENT OPERATOR) SARSCOV2 NOT DETECTED (Referen ce Range for this test is Not Detected ) [facility] THERMOFISHER FAST DX 08/28/2021 8:54 AM RAILWAY EQUIPMENT OPERATOR [facility] Comment:This test was perfor med by a RT-PCR method. Other Non-Phlebotomy Collection / Unknown 08/27/2021 8:33 AM RAILWAY EQUIPMENT OPERATOR 08/27/2021 11:11 AM RAILWAY EQUIPMENT OPERATOR Narrative [facility] - 08/28/2021 8:54 AM RAILWAY EQUIPMENT OPERATOR Authorized Fact Sheets about this test for providers and patients are available at: https://www.fda.gov/medical-devices/hqsevvsmx-iflaybagyo-irqnhcp-devices/emergen cy-us e-authorizations us Louie Purdy MD MICROBIOLOGY - GENERAL ORDERAB LES Final Result [facility] [address] [place] [address], documented in this encounter Visit Diagnoses Diagnosis [...] 19 07/01/2022 08/19/2022 08/29/2022 12:1 6 AM RAILWAY EQUIPMENT OPERATOR COVID - 19 10/07/2022 12/23/2022 01/02/2023 12:1 6 AM CDT documented as of this encounter Care Teams General Engineer Relationship Specialty Start Date End Date Trupti Spence MD PCP - General Family Medicine 02/19/16 11/23/22 Provider, Unknown UNKNOWN PCP - General 11/25/22 12/03/22 Evette Melo MD UNKNOWN PCP - General Family Medicine 12/04/22 04/12/24 Norma May MD [address] [place] [address] PCP - General Family Medicine 04/13/24 Meryl Martinez APRN, AMMONIA SOLUTION PREPARER #2 [facility], [address] [place] [address] Nurse Practitioner Cardiology 07/25/24 documented as of this encounter
--- OUTSIDE RECORDS SUMMARY | 2025-03-13 09:17 | XMS_ITS | Encounter Summary ---
Author Organization [facility] Address [address] [place] [address] Phone Care Team Providers Care Mail Messenger Name Role Phone Trupti Spence MD Primary Care Provider [phone] Provider, Unknown Primary Care Provider Unavaila Evette Persaud MD Primary Care Provider Unavailable Norma May MD Primary Care Provider Meryl Martinez APRN, WAREHOUSE ADMINISTRATOR Unavailable [phone] Encounter Details Date Type Department Care Team (Late st Contact Info) Description 07/23/2021 Lab Requisition [facility] Laboratory Services 1 [place] [id number] Louie Purdy MD [address] [place] [address] [facility] [address] [place] [address] Social History Tobacco Use Types Packs/Day Years [...] Visit [facility] - Cardiology [facility] #2 [place] [address] Sandro Lissbelkis Fernandez APRN, WAREHOUSE ADMINISTRATOR #2 [facility] [place] [address] documented as of this encounter Procedures Procedure Name Priority Date/Time Associated Diagnosis Comments SARS-COV-2 BY MOLECULAR Routine 07/23/2021 8:36 AM CDT documented in this encounter Results * SARS-COV-2 BY MOLECULAR (07/23/2021 8:36 AM CDT) SARSCOV2 NOT DETECTED (Referen ce Range for this test is Not Detected ) [facility] THERMOFISHER FAST DX 07/24/2021 10:46 AM CDT [facility] Comment:This test was perfor med by a RT-PCR method. Other Non-Phlebotomy Collection / Unknown 07/23/2021 8:36 AM CDT 07/23/2021 10:46 AM CDT Narrative [facility] - 07/24/2021 10:46 AM CDT Authorized Fact Sheets about this test for providers and patients are available at: https://www.fda.gov/medical-devices/vupnwdysv-tqmaqakpeq-xudwbct-devices/emergen -us e-authorizations us Louie Purdy MD MICROBIOLOGY - GENERAL ORDERAB LES Final Result Performing Organization Address City/State/[facility] Co de Phone Number [facility] [address] [place] [address], documented in this encounter Visit Diagnoses Not [...] 19 07/01/2022 08/19/2022 08/29/2022 12:1 6 AM FELLING MACHINE OPERATOR COVID - 19 10/07/2022 12/23/2022 01/02/2023 12:1 6 AM CDT documented as of this encounter Care Teams Mail Messenger Relationship Specialty Start Date End Date Trupti Spence MD PCP - General Family Medicine 02/19/16 11/23/22 Provider, Unknown UNKNOWN PCP - General 11/25/22 12/03/22 Evette Melo MD UNKNOWN PCP - General Family Medicine 12/04/22 04/12/24 Norma May MD [address] [address] PCP - General Family Medicine 04/13/24 Meryl Martinez APRN, WAREHOUSE ADMINISTRATOR #2 [facility], [address] [place] [address] Nurse Practitioner Cardiology 07/25/24 documented as of this encounter
--- OUTSIDE RECORDS SUMMARY | 2025-03-13 09:17 | XMS_ITS | Encounter Summary ---
Author Organization [facility] Address [address] [place] [address] Phone Care Team Providers Care Pipe Coremaker Name Role Phone Matthew Bansal MD Unavailable Norma Osorio NP Unavailable [phone] Encounter Details Date Type Department Care Team (Late st Contact Info) Description 02/03/2023 Orders Only [facility] [address] [place] [address] Scanning, Provider Social History Tobacco Use Types Packs/Day Years Used Date Smoking Tobacco: Never Smokeless Tobacco: Never Alcohol Use Standard Drinks/Week Comments No 0 (1 standard drink = 0.6 oz pur e alcohol) PHQ-2 Answer Date Recorded PHQ-2 Total Score (If total score is 3 or more points, staff should administer the PHQ-9) 1 01/21/2022 Comments Unknown Sex and Gender Information Value Date Recorded Sex Assigned at Not on file Legal Sex Female 3:53 AM RUG UNDERLAY MACHINE OPERATOR Gender Identity Not on file Sexual Orientation Not on file documented as of this encounter Plan of Treatment Not on file documented as of this encounter Procedures Procedure Name Priority Date/Time Associated Diagnosis Comments SCAN - LABS 02/03/2023 documented in this encounter Results * SCAN - LABS (02/03/2023) us Provider Scanning Final Result documented in this encounter Visit Diagnoses Not on filedocumented in this encounter Care Teams Pipe Coremaker Relationship Specialty [place] [address] [address] Consulting Physician Endocrinology Diabetes & Metabolism 12/05/18 [place] [address] [address] [address] Nurse Practitioner Internal Medicine 12/05/18 documented as of this encounter
--- OUTSIDE RECORDS SUMMARY | 2025-03-13 09:17 | XMS_ITS | Encounter Summary ---
Author Organization [facility] Address [address] [place] [address] Phone Care Team Providers Care Epic Interface Analyst Name Role Phone Trupti Spence MD Primary Care Provider [phone] Provider, Unknown Primary Care Provider Unavaila Evette Persaud MD Primary Care Provider Unavailable oNrma May MD Primary Care Provider Meryl Martinez APRN, WASHER ASSEMBLER Unavailable [phone] Encounter Details Date Type Department Care Team (Late st Contact Info) Description 07/09/2021 Lab Requisition [facility] Laboratory Services 1 [place] [address] Louie Purdy MD [address] [place] [address] [address] [place] [address] Encounter for screening for COVID-19 Social History [...] - Cardiology [facility] #2 [place] [address] Liss Jo APRN, WASHER ASSEMBLER #[address] [place] [address] documented as of this encounter Procedures Procedure Name Priority Date/Time Associated Diagnosis Comments SARS-COV-2 BY MOLECULAR Routine 07/09/2021 8:21 AM CDT Encounter for screening for COVID-19 documented in this encounter Results * SARS-COV-2 BY MOLECULAR (07/09/2021 8:21 AM CDT) SARSCOV2 NOT DETECTED (Referen ce Range for this test is Not Detected ) [facility] THERMOFISHER FAST DX 07/10/2021 5:10 AM CDT [facility] Comment:This test was perfor med by a RT-PCR method. Other Non-Phlebotomy Collection / Unknown 07/09/2021 8:21 AM CDT 07/09/2021 10:38 AM CDT Narrative [facility] - 07/10/2021 5:10 AM CDT Authorized Fact Sheets about this test for providers and patients are available at: https://www.fda.gov/medical-devices/txpysloem-pyvlaqoaen-amfghpp-devices/emergen -us e-authorizations us Louie Purdy MD MICROBIOLOGY - GENERAL ORDERAB LES Final Result [facility] [address] [facility] [place] [address], documented in this encounter Visit Diagnoses Diagnosis Encounter for screening for COVID-19 documented in this encounter Additional Health Concerns Infection Onset Date Last Indicated Resolved Time COVID - 19 07/02/2021 04/08/2022 04/08/2022 11:4 5 PM CDT COVID - 19 Confirmed 04/08/2022 04/08/20222 022 12:16 AM CDT COVID - 19 04/29/2022 06/03/2022 06/13/2022 12:1 6 AM CDT COVID - 19 06/17/2022 06/17/2022 06/27/2022 12:1 6 AM CDT COVID - 19 07/01/2022 08/19/2022 08/29/2022 12:1 6 AM SUBSTATION OPERATOR COVID - 19 10/07/2022 12/23/2022 01/02/2023 12:1 6 AM CDT documented as of this encounter Care Teams Epic Interface Analyst Relationship Specialty Start Date End Date Trupti Spence MD PCP - General Family Medicine 02/19/16 11/23/22 Provider, Unknown UNKNOWN PCP - General 11/25/22 12/03/22 Evette Melo MD UNKNOWN PCP - General Family Medicine 12/04/22 04/12/24 Norma May MD [address] [place] [address] PCP - General Family Medicine 04/13/24 Meryl Martinez APRN, WASHER ASSEMBLER #2 [facility], [address] [place] [address] Nurse Practitioner Cardiology 07/25/24 documented as of this encounter
--- OUTSIDE RECORDS SUMMARY | 2025-03-13 09:17 | XMS_ITS | Encounter Summary ---
Author Organization [facility] Address [address] [place] [address] Phone Care Team Providers Care Continuous Improvement Engineer Name Role Phone Trupti Spence MD Primary Care Provider [phone] Provider, Unknown Primary Care Provider Unavaila Evette Persaud MD Primary Care Provider Unavailable Norma May MD Primary Care Provider Meryl Martinez APRN, REHANGER Unavailable [phone] Encounter Details Date Type Department Care Team (Late st Contact Info) Description 09/03/2021 [facility] 1 [place] [id number] Louie Purdy MD [address] [place] [address] [facility] [address] [place] [address] Social History Tobacco Use Types Packs/Day Years [...] Office Visit [facility] - Cardiology [facility] #2 [place] [address] Nimco Joarebelkis Fernandez, COMMUNITY AFFAIRS DIRECTOR, REHANGER #[address] [place] [address] documented as of this encounter Procedures Procedure Name Priority Date/Time Associated Diagnosis Comments SARS-COV-2 BY MOLECULAR Routine 09/03/2021 8:08 AM BAG VALVER documented in this encounter Results * SARS-COV-2 BY MOLECULAR (09/03/2021 8:08 AM BAG VALVER) SARSCOV2 NOT DETECTED (Referen ce Range for this test is Not Detected ) [facility] THERMOFISHER FAST DX 09/04/2021 10:21 AM BAG VALVER [facility] Comment:This test was perfor med by a RT-PCR method. Other Non-Phlebotomy Collection / Unknown 09/03/2021 8:08 AM BAG VALVER 09/03/2021 10:30 AM BAG VALVER Narrative [facility] - 09/04/2021 10:21 AM BAG VALVER Authorized Fact Sheets about this test for providers and patients are available at: https://www.fda.gov/medical-devices/baemsdbos-snsjhmowtt-qtrpuoa-devices/emergen -us e-authorizations us Louie Purdy MD MICROBIOLOGY - GENERAL ORDERAB LES Final Result [facility] [address] [place] [address], documented in this encounter Visit Diagnoses Not [...] 19 07/01/2022 08/19/2022 08/29/2022 12:1 6 AM BAG VALVER COVID - 19 10/07/2022 12/23/2022 01/02/2023 12:1 6 AM CDT documented as of this encounter Care Teams Continuous Improvement Engineer Relationship Specialty Start Date End Date Trupti Spence MD PCP - General Family Medicine 02/19/16 11/23/22 Provider, Unknown UNKNOWN PCP - General 11/25/22 12/03/22 Evette Melo MD UNKNOWN PCP - General Family Medicine 12/04/22 04/12/24 Norma May MD [address] [place] [address] PCP - General Family Medicine 04/13/24 Meryl Martinez APRN, REHANGER #2 [facility], [address] [place] [address] Nurse Practitioner Cardiology 07/25/24 documented as of this encounter
--- OUTSIDE RECORDS SUMMARY | 2025-03-13 09:17 | XMS_ITS | Clinical Summary ---
Author Organization [facility] Address [address] [place] [address] Care Team Providers Care Architectural Technologist Name Role Phone Norma May MD Primary Care Provider [phone] Meryl Martinez APRN, [employer]IES SALESPERSON Unavailable [phone] Allergies Active Allergy Reactions Criticality Noted Date Comments Lactose Unknown 12/13/2018 Medications Escitalopram Oxalate (LEXAPRO) 5 MG Tablet Take 5 mg by mouth daily. Active fluticasone (FLONASE) 50 MCG/ACT Suspension 1 [place] by Nasal route daily. Use in each nostril as directed. Active methIMAzole (TAPAZOLE) 5 MG Tablet Take 5 mg by mouth daily. Wednesday through Wednesday Active Calcium Carb-Cholecalci ferol (OYSTER CALCIUM/D3) 500-200 MG-UNIT Tablet Take 1 Tab by mouth 2 times daily. Active loratadine (CLARITIN) 10 MG Tablet Take 10 mg by mouth daily. Active Cholecalciferol (VITAMIN D) 2000 UNIT Tablet Take 2,000 Units by mouth daily. Active valsartan-hydro CHLOROthiazide (DIOVAN-HCT) 320-25 MG TabletIndicatio ns:Hypertension , unspecified type Take 1 Tab by mouth daily. 90 Tab 1 0 Active Multiple Vitamins-Minera ls (Healthy Eyes Supervision 2) Capsule Take 1 Capsule by mouth daily. Active Dextromethorpha n-quiNIDine (Nuedexta) 20-10 MG Capsule Take 1 Tablet by mouth daily. Active acetaminophen (TYLENOL) 500 MG Tablet Take 500 mg by mouth every 4 hours as needed for Mild or more severe pain. Active guaiFENesin (Chest Congestion Relief) 100 MG/5ML Liquid Take 200 mg by mouth every 6 hours as needed for Cough. Active magnesium hydroxide (Milk of Magnesia) 400 MG/5ML Suspension Take 30 mL by mouth daily as needed for Constipation - 1st line. 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 Hemangioma 04/09/2021 Dental abscess 04/09/2021 Bradycardia 03/19/2021 Bilateral leg edema 07/31/2020 HTN (hypertension) 01/18/2019 Hyperthyroidism 01/18/2019 Lymphedema 01/18/2019 Mild intellectual disabilities 01/18/2019 Depression 01/18/2019 Seasonal allergies 01/18/2019 Osteoporosis 01/18/2019 Resolved Problems Problem Noted Date Diagnosed Date Resolved Date Acute kidney injury superimp osed on chronic kidney disease 06/09/2024 06/09/2024 Syncope 06/08/2024 06/09/2024 Hyperlipidemia 01/18/2019 03/06/2020 Encounters Date Type Department Care Team Description 03/12/2025 [facility] [address] [place] [address] Louie Purdy MD 02/21/2025 [facility] [address] [place] [address] Louie Purdy MD Essential (primary) hypertension; Chronic kidney disease, stage 3a (HCC); Edema, unspecified 02/14/2025 [facility] [address] [place] [address] Louie Purdy MD Unspecified hearing loss, bilateral; Hypothyroidism, unspecified; Hyperlipidemia, unspecified; Vitamin D deficiency, unspecified; Essential (primary) hypertension; Mild intellectual disabilities 01/31/2025 [facility] [address] [place] [address] Louie Purdy MD Hypothyroidism, unspecified; Hyperlipidemia, unspecified; Vitamin D deficiency, unspecified 01/24/2025 2:00 PM CDT [facility] [address] [place] [address] Meryl Martinez, FUEL MANAGER, PET SUPPLIES SALESPERSON PAF (paroxysmal atrial fibrillation) (HCC) (Primary Dx); Syncope, unspecified syncope type; Primary hypertension Discharge Disposition: Discharged to home or Selfcare 01/24/2025 Travel from Last 3 Months Immunizations Immunization Administration Dates Next Due Covid-19, Mrna, Lnp-s, Pf, 3 0 Mcg/0.3 Ml Dose (Satellogic) 08/15/2021,08/15/2021,12/13/2020,2020 Influenza Vaccine greater than 3 yrs 07/24/2017 Influenza Vaccine, Quadrivalent, PF 08/12/2020 TDAP Vaccine 10/11/2012 Social History Tobacco Use Types Packs/Day Years Used Date Smoking Tobacco: Never Smokeless Tobacco: Never Tobacco Cessation:Counseling Given: Not Answered Alcohol Use Standard Drinks/Week Comments No 0 (1 standard drink = 0.6 oz pur e alcohol) [facility] Utilities Answer Date Recorded In the past 12 months has Nixon, gas, oil, or water [employer] threatened to shut off services in your home? Patient declined 06/08/2024 Social Connection and Isolation Panel [NHANES] A nswer Date Recorded In a typical week, how many times do you talk on the phone with family, friends, or neighbors? Patient declined 06/08/2024 How often do you get togethe r with friends or relatives? Patient declined 06/08/2024 How often do you attend oriental orthodox or denominational serv ices? Patient declined 06/08/2024 Do you belong to any clubs o r organizations such as oriental orthodox groups, unions, fraternal or athletic groups, or [...] medical care, and heating? Patient declined 06/08/2024 [facility] - Occup[facility] Stress [...] any time in the past 12 m [facility], were you homeless or living in a half-way (including now)? Patient declined 06/08/2024 Comments No Sex and Gender Information Value Date Recorded Sex Assigned at Not on file Legal Sex Female 8:58 PM CDT Gender Identity Not on file Sexual Orientation Not on file Last Filed Vital Signs Vital Sign Reading Time Taken Comments Blood Pressure 128/74 01/24/2025 1:48 PM CDT Pulse 70 01/24/2025 1:48 PM CDT Temperature 36.7 C (98 F) 01/24/2025 1:48 PM CDT Respiratory Rate 20 01/24/2025 1:48 PM CDT Oxygen Saturation 98% 01/24/2025 1:48 PM CDT Inhaled Oxygen Concentration - - Weight 77.7 kg (171 lb 3.2 oz) 01/24/2025 1:48 P M CDT Height 154.9 cm (5' 1) 08/01/2024 9:59 AM CDT Body Mass Index 32.35 08/01/2024 9:59 AM CDT Plan of Treatment Upcoming Encounters Date Type Department Care Team (Late st Contact Info) Description 07/24/2025 11:00 AM CDT [facility] Visit [facility] - [place] [address] [place] [address] Liss Jo APRN, PET SUPPLIES SALESPERSON [address] [place] [address] Health Maintenance Due Date Last Done Comments Hepatitis C Virus (HCV) Screening 1945 Pneumococcal Immunization (50+ years) (1 of 2 - PCV) 1966 Zoster Immunization (1 of 2) 1997 Respiratory Syncytial Virus (RSV) Immunization (Adult) (1 - 1-dose 75+ series) 2022 SARS-COV-2 Immunization ( season) 2024 07/09/2022, 08/15/2021, 08/15/2021, Additional history exists Influenza Immunization (Season Ended) 2025 08/05/2023, 08/12/2020, 07/24/2017 DEXA Bone Density 09/14/2025 09/14/2023, , 02/24/2019, Additional history exists Td Immunization Every 10 Years (Adults With 1 Tdap) 09/22/2029 09/22/2019, 10/11/2012 DTaP/Tdap/Td Immunization Discontinued 09/22/2019, 10/2012 Mammogram Discontinued 04/19/2024, 01/09, 09/15/2021, Additional history exists Hepatitis B Immunization Aged Out No longer eligible based on patient's age to complete this topic Human Papillomavirus (HPV) Immunization Aged Out No longer eligible based on patient's age to complete this topic Meningococcal Immunization (ACWY) Aged Out No longer eligible based on patient's age to complete this topic Rotavirus Immunization Aged Out No lo nger eligible based on patient's age to complete this topic Procedures Procedure Name Priority Date/Time Associated Diagnosis Comments HERPES ZOSTER (VARICELLA) IGG Routine 03/12/2025 6:35 AM CDT RUBEOLA (MEASLES) IGG Routine 03/12/2025 6:35 AM CDT RUBELLA IMMUNITY IGG Routine 03/12/2025 6:35 AM CDT MUMPS IGG Routine 03/12/2025 6:35 AM CDT MMRV PANEL Routine 03/12/2025 6:35 AM CDT MAGNESIUM (MG) Routine 02/21/2025 7:00 AM CDT Essential (primary) hypertension Chronic kidney disease, stage 3a (HCC) Edema, unspecified HEPATIC FUNCTION PANEL Routine 7:00 AM CDT Essential (primary) hypertension Chronic kidney disease, stage 3a (HCC) Edema, unspecified B-TYPE NATRIURETIC PEPTIDE (BNP) Routine 02/14/2025 7:42 AM CDT Unspecified hearing loss, bilateral Hypothyroidism, unspecified Hyperlipidemia, unspecified Vitamin D deficiency, unspecified Essential (primary) hypertension Mild intellectual disabilities CBC WITH AUTO DIFFERENTIAL Routine 01/31/2025 7:43 AM CDT Hypothyroidism, unspecified Hyperlipidemia, unspecified Vitamin D deficiency, unspecified COMPLETE BLOOD COUNT (CBC) WITH DIFF Routine 01/31/2025 7:43 AM CDT Hypothyroidism, unspecified Hyperlipidemia, unspecified Vitamin D deficiency, unspecified VITAMIN D, 25 HYDROXY TOTAL Routine 01/31/2025 7:43 AM CDT Hypothyroidism, unspecified Hyperlipidemia, unspecified Vitamin D deficiency, unspecified THYROID STIMULATING HORMONE (TSH) Routine 01/31/2025 7:43 AM CDT Hypothyroidism, unspecified Hyperlipidemia, unspecified Vitamin D deficiency, unspecified THYROXINE (T4) TOTAL Routine 01/31/2025 7:43 AM CDT Hypothyroidism, unspecified Hyperlipidemia, unspecified Vitamin D deficiency, unspecified TRIIODOTHYRININE (T3) FREE Routine 01/31/2025 7:43 AM CDT Hypothyroidism, unspecified Hyperlipidemia, unspecified Vitamin D deficiency, unspecified HEMOGLOBIN A1C W/ ESTIMATED GLUCOSE Routine 01/31/2025 7:43 AM CDT Hypothyroidism, unspecified Hyperlipidemia, unspecified Vitamin D deficiency, unspecified LIPID PANEL Routine 01/31/2025 7:43 AM CDT Hypothyroidism, unspecified Hyperlipidemia, unspecified Vitamin D deficiency, unspecified CMP (COMPREHENSIVE METABOLIC PANEL) Routine 01/31/2025 7:43 AM CDT Hypothyroidism, unspecified Hyperlipidemia, unspecified Vitamin D deficiency, unspecified [facility] SCREENING BILATERAL DIGITAL W CAD Routine 04/19/2024 9:37 AM CDT Visit for screening mammogram [facility] BONE DENSITOMETRY AXIAL SKELETON Routine 09/14/2023 9:35 AM LADIES UNDERWEAR OPERATOR Age related osteoporosis, unspecified pathological fracture presence from Last 3 Months or Most Recently Relevant to Health Maintenance Results * (ABNORMAL) MUMPS IGG (03/12/2025 6:35 AM CDT) Mumps Ab IgG <0.2(L) >=1.1 AI 03/12/2025 3:45 PM CDT [facility] Blood Venipuncture / Unknown 03/12/2025 6:35 AM CDT 03/12/2025 8:31 AM CDT Narrative [facility] - 03/12/2025 3:45 PM CDT <= 0.8 Negative. No detectable Mumps IgG antibody. 0.9 - 1.0 Equivocal >=1.1 Positive Antibody testing was performed by multiplex flow immunoassay on the BioPlex platform. us Louie Purdy MD IMMUNOLOGY ORDERABLES Final Re sult Performing Organization Address [facility] de Phone Number [facility] [address] [place] [address], [place] * HERPES ZOSTER (VARICELLA) IGG (03/12/2025 6:35 AM CDT) VARICELLA ZOSTER IGG >8.0 >=1.1 AI 03/12/2025 3:45 PM CDT [facility] Blood Venipuncture / Unknown 03/12/2025 6:35 AM CDT 03/12/2025 8:31 AM CDT [facility] - 03/12/2025 3:45 PM CDT <= 0.8 Negative. No detectable VZV IgG antibody. 0.9 - 1.0 Equivocal >=1.1 Positive Antibody testing was performed by multiplex flow immunoassay on the BioPlex platform. us Louie Purdy MD IMMUNOLOGY ORDERABLES Final Re sult Performing Organization Address [facility] Co de Phone Number [facility] [address] [place] [address], [place] * RUBEOLA (MEASLES) IGG (03/12/2025 6:35 AM CDT) MEASLES AB IGG 4.6 >=1.1 AI 03/12/2025 3:45 PM CDT [facility] Blood Venipuncture / Unknown 03/12/2025 6:35 AM CDT 03/12/2025 8:31 AM CDT Narrative [facility] - 03/12/2025 3:45 PM CDT <= 0.8 Negative. No detectable Measles IgG antibody. 0.9 - 1.0 Equivocal >=1.1 Positive Antibody testing was performed by multiplex flow immunoassay on the BioPlex platform. Louie Purdy MD IMMUNOLOGY ORDERABLES Final Re sult Performing Organization Address City/[facility]/ZIP Co de Phone Number [facility] [address] [place] [address], [place] * (ABNORMAL) RUBELLA IMMUNITY IGG (03/12/2025 6:35 AM CDT) RUBELLA IMMUNITY Nonimmune( A) Immune, Invalid 03/12/2025 3:45 PM CDT [facility] RUBELLA IGG QUANT <0.2 >=1.0 AI AI 03/12/2025 3:45 PM CDT [facility] Blood Venipuncture / Unknown 03/12/2025 6:35 AM CDT 03/12/2025 8:31 AM CDT Narrative [facility] - 03/12/2025 3:45 PM CDT Antibody testing was performed by multiplex flow immunoassay on the BioPlex platform. us Louie Purdy MD CHEMISTRY ORDERABLES Final Res ult [facility] [address] [place] [address], [place] * MAGNESIUM (MG) (02/21/2025 7:00 AM CDT) MAGNESIUM 2.0 1.6 - 2.6 mg/dL 02/21/2025 10:49 AM CDT [facility] Blood Venipuncture / Unknown 02/21/2025 7:00 AM CDT 02/21/2025 8:22 AM CDT us Louie Purdy MD CHEMISTRY ORDERABLES Final Res ult Performing Organization Address City/[facility]/ZIP Co de Phone Number [facility] [address] [place] [address] * (ABNORMAL) HEPATIC FUNCTION PANEL (02/21/2025 7:00 AM CDT) [facility] BILI 0.6 0.2 - 1.2 mg/dL 02/21/2025 10:49 AM CDT [facility] BILIRUBIN,DIRECT 0.2 0.0 - 0.5 mg/dL 02/21/2025 10:49 AM CDT [facility] ALKALINE PHOSPHATASE 51 40 - 150 U/L 02/21/2025 10:49 AM CDT [facility] SGOT (AST) 24 <43 U/L 02/21/2025 10:49 AM CDT [facility] SGPT (ALT) 9 <56 U/L 02/21/2025 10:49 AM CDT [facility] TOTAL PROTEIN 6.4 6.0 - 8.0 g/dL 02/21/2025 10:49 AM CDT [facility] ALBUMIN 3.3(L) 3.5 - 5.0 g/dL 02/21/2025 10:49 AM CDT [facility] Blood Venipuncture / Unknown 02/21/2025 7:00 AM CDT 02/21/2025 8:22 AM CDT us Louie Purdy MD CHEMISTRY ORDERABLES Final Res ult [facility] [address] [place] [address] * (ABNORMAL) B-TYPE NATRIURETIC PEPTIDE (BNP) (02/14/2025 7:42 AM CDT) B TYPE NATRIURETIC PEPTIDE 394(H) <100 pg/mL 02/14/2025 9:30 AM CDT [facility] Blood Venipuncture / Unknown 02/14/2025 7:42 AM CDT 02/14/2025 8:56 AM CDT us Louie Purdy MD CHEMISTRY ORDERABLES Final Res ult [facility] [address] [place] [address] * VITAMIN D, 25 HYDROXY TOTAL (01/31/2025 7:43 AM CDT) VITAMIN D, 25 HYDROX 57.2 ng/mL 01/31/2025 9:33 AM CDT [facility] Blood Venipuncture / Unknown 01/31/2025 7:43 AM CDT 01/31/2025 8:51 AM CDT Narrative [facility] - 01/31/2025 9:33 AM CDT Published reference ranges for Vitamin D vary depending on time and place and method of testing, and on patient's age, sex, ethnicity and levels of other measured analytes such as parathormone, calcium and phosphorus. The result should be evaluated in conjunction with clinical findings and suspicions. [place] [employer] and [employer] Clinical Practice Guidelines: Status Vitamin D levels (ng/mL) Deficient <=20 At risk of inadequacy 21-29 Sufficient 30-100 Centers of Disease Control and Prevention Guidelines: Status Vitamin D levels (ng/mL) Deficient <13 At risk of inadequacy 13-19 Sufficient 20-50 Possibly harmful >50 References: [place] [employer], 2010 Dietary reference intakes for calcium and vitamin D. [place]: The National Academies Press. Melissa M, Randolph N, Mikel HARRINGTON, et al., Evaluation, treatment, and prevention of Vitamin D deficiency: an Endocrinology Clinical Practice Guideline. JCEM 2011 96: 7 9520-1508. Millie A, Gil C, Kong Honeycutt, et al., Vitamin D Status: [place], , [facility] data brief, no. 59, MD [place]: [facility] for Health Statistics. 2010. Louie Purdy MD CHEMISTRY ORDERABLES Final Res ult Performing Organization Address City/[facility]/ZIP Co de Phone Number [facility] [address] [place] [address] * HEMOGLOBIN A1C W/ ESTIMATED GLUCOSE (01/31/2025 7:43 AM CDT) HGB-A1C 5.4 4.0 - 6.0 % 01/31/2025 9:11 AM CDT [facility] Est Average Glucose 108.3 mg/dL 01/31/2025 9:11 AM CDT [facility] Blood Venipuncture / Unknown 01/31/2025 7:43 AM CDT 01/31/2025 8:51 AM CDT Narrative [facility] - 01/31/2025 9:11 AM CDT HEMOGLOBIN A1C: DIABETIC PATIENTS: WELL-CONTROLLED: 6.2 - 7.0 INTERMEDIATE WELL-CONTROLLED: 7.0 - 9.0 POORLY-CONTROLLED: >9.0 Specimens containing greater than 5% of Hemoglobin F may result in lower than expected % HbA1C results. Louie Purdy MD CHEMISTRY ORDERABLES Final Res ult Performing Organization Address [facility] Co de Phone Number [facility] [address] [place] [address] * (ABNORMAL) CBC WITH AUTO DIFFERENTIAL (01/31/2025 7:43 AM CDT) WBC 8.37 4.00 - 12.00 10(3)/mcL 01/31/2025 8:55 AM CDT [facility] RBC 4.02 3.80 - 5.30 10(6)/mcL 01/31/2025 8:55 AM CDT [facility] HEMOGLOBIN (HGB) 12.6 12.0 - 15.8 g/dL 01/31/2025 8:55 AM CDT [facility] HEMATOCRIT (HCT) 38.8 36.0 - 47.0 % 01/31/2025 8:55 AM CDT [facility] MCV 96.5(H) 82.0 - 96.0 fL 01/31/2025 8:55 AM CDT [facility] MCH 31.3 26.0 - 34.0 pg 01/31/2025 8:55 AM CDT [facility] MCHC 32.5 31.0 - 36.0 g/dL 01/31/2025 8:55 AM CDT [facility] PLATELET COUNT 203 140 - 440 10(3)/mcL 01/31/2025 8:55 AM CDT [facility] RDW 12.7 11.8 - 15.5 % 01/31/2025 8:55 AM CDT [facility] MPV 10.6 9.7 - 12.4 fL 01/31/2025 8:55 AM CDT [facility] NEUTROPHILS 63.9 47.0 - 73.0 % 01/31/2025 8:55 AM CDT [facility] LYMPHOCYTES 22.2 18.0 - 42.0 % 01/31/2025 8:55 AM CDT [facility] MONOCYTES 8.6 4.0 - 12.0 % 01/31/2025 8:55 AM CDT [facility] EOSINOPHILS 4.5 0.0 - 5.0 % 01/31/2025 8:55 AM CDT [facility] BASOPHILS 0.8 0.0 - 1.0 % 01/31/2025 8:55 AM CDT [facility] ABSOLUTE NEUTROPHILS 5.34 1.60 - 7.70 10(3)/mcL 01/31/2025 8:55 AM CDT [facility] ABSOLUTE LYMPHOCYTES 1.86 1.30 - 3.20 10(3)/mcL 01/31/2025 8:55 AM CDT [facility] ABSOLUTE MONOCYTES 0.72 0.20 - 1.00 10(3)/mcL 01/31/2025 8:55 AM CDT [facility] ABSOLUTE EOSINOPHIL 0.38 0.00 - 0.40 10(3)/mcL 01/31/2025 8:55 AM CDT [facility] ABSOLUTE BASOPHILS 0.07 0.00 - 0.10 10(3)/mcL 01/31/2025 8:55 AM CDT [facility] NRBC PER 100 WBC 0 02/01/20 8:55 AM CDT [facility] Blood Venipuncture / Unknown 01/31/2025 7:43 AM CDT 01/31/2025 8:51 AM CDT Louie Purdy MD HEMATOLOGY ORDERABLES Final Re sult Performing Organization Address City/[facility]/ZIP Co de Phone Number [facility] [address] [place] [address] * THYROXINE (T4) TOTAL (01/31/2025 7:43 AM CDT) T4 6.4 5.0 - 13.0 mcg/dL 01/31/2025 9:33 AM CDT [facility] Blood Venipuncture / Unknown 01/31/2025 7:43 AM CDT 01/31/2025 8:51 AM CDT Louie Purdy MD CHEMISTRY ORDERABLES Final Res ult [facility] [address] [place] [address] * THYROID STIMULATING HORMONE (TSH) (01/31/2025 7:43 AM CDT) TSH 1.241 0.300 - 5.000 mIU/L 01/31/2025 9:33 AM CDT [facility] Blood Venipuncture / Unknown 01/31/2025 7:43 AM CDT 01/31/2025 8:51 AM CDT Louie Purdy MD CHEMISTRY ORDERABLES Final Res ult [facility] [address] [place] [address] * TRIIODOTHYRININE (T3) FREE (01/31/2025 7:43 AM CDT) FREE T3 2.5 1.6 - 3.9 pg/mL 01/31/2025 3:52 PM CDT [facility] Blood Venipuncture / Unknown 01/31/2025 7:43 AM CDT 01/31/2025 8:51 AM CDT Louie Purdy MD CHEMISTRY ORDERABLES Final Res ult [facility] [address] [place] [address], * (ABNORMAL) LIPID PANEL (01/31/2025 7:43 AM CDT) CHOLESTEROL 170 <200 mg/dL 01/31/2025 10:11 AM CDT [facility] TRIGLYCERIDES 43 <150 mg/dL 01/31/2025 10:11 AM CDT [facility] HDL CHOLESTEROL 68 >40 mg/dL 10:11 AM CDT [facility] LDL 93 <130 mg/dL 01/31/2025 10:11 AM CDT [facility] VLDL 9(L) 10 - 50 mg/dL 01/31/2025 10:11 AM CDT [facility] CHOL/HDL RATIO 2.5 0.0 - 4.4 01/31/2025 10:11 AM CDT [facility] NON-HDL CHOLESTEROL 102 <130 mg/dL 01/31/2025 10:11 AM CDT [facility] Blood Venipuncture / Unknown 01/31/2025 7:43 AM CDT 01/31/2025 8:51 AM CDT us Louie Purdy MD CHEMISTRY ORDERABLES Final Res ult [facility] [address] [facility] [place] [address] * (ABNORMAL) CMP (COMPREHENSIVE METABOLIC PANEL) (01/31/2025 7:43 AM CDT) SODIUM 144 136 - 145 mmol/L 01/31/2025 9:17 AM CDT [facility] POTASSIUM 3.5 3.5 - 5.1 mmol/L 01/31/2025 9:17 AM CDT [facility] CHLORIDE 99 98 - 107 mmol/L 01/31/2025 9:17 AM CDT [facility] CO2, VENOUS 34(H) 22 - 30 mmol/L 01/31/2025 9:17 AM CDT [facility] ANION GAP 14.5 <18.0 mmol/L 01/31/2025 9:17 AM CDT [facility] GLUCOSE 102(H) 70 - 99 mg/dL 01/31/2025 9:17 AM CDT [facility] BUN 45(H) 10 - 20 mg/dL 01/31/2025 9:17 AM CDT [facility] CREATININE, BLOOD 1.84(H) 0.60 - 1.00 mg/dL 01/31/2025 9:17 AM CDT [facility] BUN/CREATININE RATIO 24(H) 12 - 20 ratio 01/31/2025 9:17 AM CDT [facility] TOTAL PROTEIN 6.7 6.0 - 8.0 g/dL 01/31/2025 9:17 AM CDT [facility] ALBUMIN 3.5 3.5 - 5.0 g/dL 01/31/2025 9:17 AM CDT [facility] A/G RATIO 1.1 1.0 - 2.2 01/31/2025 9:17 AM CDT [facility] CALCIUM 9.4 8.7 - 10.5 mg/dL 01/31/2025 9:17 AM CDT [facility] T BILI 0.5 0.2 - 1.2 mg/dL 01/31/2025 9:17 AM CDT [facility] SGOT (AST) 22 <43 U/L 01/31/2025 9:17 AM CDT [facility] SGPT (ALT) 13 <56 U/L 01/31/2025 9:17 AM CDT [facility] ALKALINE PHOSPHATASE 60 40 - 150 U/L 01/31/2025 9:17 AM CDT [facility] GFR, ESTIMATED 28(L) >=60 01/31/2025 9:17 AM CDT [facility] Comment: Creatinine Clearance is the preferred criteria for selecting drug dose adjustments in renally impaired patients. The GFR is provided as additional pertinent clinical information. GFR is reported in mL/min/1.73 sq m. Calculation based on the Chronic Kidney Disease Epidemiology Collaboration (CKD- EPI) equation refit without adjustment for race. GFR, EST. 32(L) >=60 025 9:17 AM CDT [facility] GFR, EST. NONAFRICAN 27(L) >=60 01/31/2025 9:17 AM CDT [facility] Blood Venipuncture / Unknown 01/31/2025 7:43 AM CDT 01/31/2025 8:51 AM CDT us Louie Purdy MD CHEMISTRY ORDERABLES Final Res ult [facility] [address] [place] [address] * JOSÉ MIGUEL SCREENING BILATERAL DIGITAL W CAD (04/19/2024 9:37 AM CDT) Anatomical Region Laterality Modality breast Bilateral Mammography 04/19/2024 9:13 AM CDT Narrative 04/20/2024 11:49 AM CDT - JOSÉ MIGUEL SCREENING BILATERAL DIGITAL W CAD BILATERAL DIGITAL SCREENING MAMMOGRAM WITH CAD WITH MEDIOLATERAL OBLIQUE CRANIOCAUDAL: 04/19/2024 The study was acquired using digital technology and interpreted from soft copy. Current study was also evaluated with ICAD version 7.2. CLINICAL: Routine screening. Patient has no complaints. Unable to suspend respirations. Possible 10-15 pound weight loss. No personal history of cancer. Patient is from a long term. Family history of breast cancer unknown. COMPARISONS: Comparison is made to exams dated: 01/20/2023, 09/15/2021, and 09/10/2020 [facility]. BREAST TISSUE:There are scattered fibroglandular densities in both breasts. FINDINGS: There are benign calcifications in both breasts. No significant masses, calcifications, or other findings are seen in either breast. There has been no significant interval change. IMPRESSION: BI-RAD 2 BENIGN There is no mammographic evidence of malignancy. A 1 year screening mammogram is recommended. A letter will be sent to the patient with these results. The patient will be entered into a reminder system with a target due date of 1 year for her next screening exam. Electronically signed by: Homer cuba/tammi:04/19/2024 21:18:47 Tin Tie Machine Operator Automatic(s): RT Dilcia(R)(M), [facility] letter sent: Normal Exam [place] location: [facility] BI-RADS: 2 Benign Procedure Note Homer Larson MD - 04/20/2024 - JOSÉ MIGUEL SCREENING BILATERAL DIGITAL W CAD BILATERAL DIGITAL SCREENING MAMMOGRAM WITH CAD WITH MEDIOLATERAL OBLIQUE CRANIOCAUDAL: 04/19/2024 The study was acquired using digital technology and interpreted from soft copy. Current study was also evaluated with ICAD version 7.2. CLINICAL: Routine screening. Patient has no complaints. Unable to suspend respirations. Possible 10-15 pound weight loss. No personal history of cancer. Patient is from a long term. Family history of breast cancer unknown. COMPARISONS: Comparison is made to exams dated: 01/20/2023, 09/15/2021, and 09/10/2020 [facility]. BREAST TISSUE:There are scattered fibroglandular densities in both breasts. FINDINGS: There are benign calcifications in both breasts. No significant masses, calcifications, or other findings are seen in either breast. There has been no significant interval change. IMPRESSION: BI-RAD 2 BENIGN There is no mammographic evidence of malignancy. A 1 year screening mammogram is recommended. A letter will be sent to the patient with these results. The patient will be entered into a reminder system with a target due date of 1 year for her next screening exam. Electronically signed by: Homer cuba/tammi:04/19/2024 21:18:47 Tin Tie Machine Operator Automatic(s): RT Dilcia(R)(M), [facility] letter sent: Normal Exam Reading location: [facility] BI-RADS: 2 Benign Evette Melo MD IMG MAMMO ORDERABLES Fi nal Result * JOSÉ MIGUEL BONE DENSITOMETRY AXIAL SKELETON (09/14/2023 9:35 AM LADIES UNDERWEAR OPERATOR) Anatomical Region Laterality Modality BODY N/A Computed Radiogr aphy 09/14/2023 8:13 PM LADIES UNDERWEAR OPERATOR Impressions 09/14/2023 8:15 PM LADIES UNDERWEAR OPERATOR IMPRESSION: Low Bone Mass. REFERENCE: Bone mineral [...] to Prevention and Treatment of Osteoporosis (http://www.nof.org/professionals/clinical-guidelines) Narrative 09/14/2023 8:15 PM LADIES UNDERWEAR OPERATOR EXAM DESCRIPTION: [facility] BONE DENSITOMETRY AXIAL SKELETON REASON FOR STUDY: 78 y/o year old F with given history of: Age related osteoporosis, unspecified pathological fracture presence Manager Oracle/Model: rVue (S/N [id number]) CLINICAL INFORMATION: Current height: 66 inches Maximum height: 67 inches Weight: 188 pounds Risk factors: Postmenopausal COMPARISON: 02/24/2019, 01/23/2015 FINDINGS: AP LUMBAR SPINE L1-L4: Total BMD is 1.267 g/cm2 T-score is 0.6 This is increased in comparison to prior exam which is statistically significant. LEFT HIP: Total BMD is 0.834 g/cm2 T-score is -1.4 This is increased in comparison to prior exam which is not statistically significant. Femoral neck BMD is 0.819 g/cm2 T-score is -1.6 FRAX: 10 year risk for a major osteoporotic fracture is 11.6 %, 10 year risk for a hip fracture is 2.5 % THIS IS AN ELECTRONICALLY VERIFIED FINAL REPORT 09/14/2023 8:13 PM - Electronically signed by Jamison Nolasco M.D. MF: CHENG Report ID: [id number] [place] Location: [address] Note Jamison Nolasco MD - 09/14/2023 EXAM DESCRIPTION: [facility] BONE DENSITOMETRY AXIAL SKELETON REASON FOR STUDY: 78 y/o year old F with given history of: Age related osteoporosis, unspecified pathological fracture presence Manager Oracle/Model: rVue (S/N [id number]) CLINICAL INFORMATION: Current height: 66 inches Maximum height: 67 inches Weight: 188 pounds Risk factors: Postmenopausal COMPARISON: 02/24/2019, 01/23/2015 FINDINGS: AP LUMBAR SPINE L1-L4: Total BMD is 1.267 g/cm2 T-score is 0.6 This is increased in comparison to prior exam which is statistically significant. LEFT HIP: Total BMD is 0.834 g/cm2 T-score is -1.4 This is increased in comparison to prior exam which is not statistically significant. Femoral neck BMD is 0.819 g/cm2 T-score is -1.6 FRAX: 10 year risk for a major osteoporotic fracture is 11.6 %, 10 year risk for a hip fracture is 2.5 % THIS IS AN ELECTRONICALLY VERIFIED FINAL REPORT 09/14/2023 8:13 PM - Electronically signed by Jamison Nolasco M.D. MF: CHENG Report ID: [id number] Reading Location: [place] [address] IMPRESSION: Low Bone Mass. REFERENCE: Bone mineral [...] to Prevention and Treatment of Osteoporosis (http://www.nof.org/professionals/clinical-guidelines) Evette Melo MD IMG DEXA ORDERABLES Fin al Result from Last 3 Months or Most Recently Relevant to Health Maintenance Insurance MEDICARE [place] [facility] [id number] [place] [address] Advance Directives Documents on File Type Date Recorded Patient Change Control Analyst Expl anation POLST/POST/NM DNR 06/09/2024 9:14 AM DNR, 01/16/2019 Other Advance Directive 03/25/2022 10:12 AM Quantine 2 * Full Code (Latest Code Status on File) Date Activated Date Inactivated Comments 06/08/2024 3:01 PM CPR-Full Treat ment: FULL ARREST: Attempt Resuscitation/CPR wit intubation and mechanical ventilation. PRE-ARREST: Use entire range of life support measures to stabilize the patient. Care Teams Architectural Technologist Relationship Specialty Start Date End Date Norma May MD [address] [place] [address] PCP - General Family Medicine 04/13/24 Meryl Martinez APRN, PET SUPPLIES SALESPERSON #2 [facility], [address] [place] [address] Nurse Practitioner Cardiology 07/25/24
--- OUTSIDE RECORDS SUMMARY | 2025-03-13 09:17 | XMS_ITS | Encounter Summary ---
Author Organization [facility] Address [address] [place] [address] Phone Care Team Providers Care Billboard Mechanic Name Role Phone Trupti Spence MD Primary Care Provider Provider, Unknown Primary Care Provider Unavaila Evette Persaud MD Primary Care Provider Unavailable Norma May MD Primary Care Provider Meryl Martinez APRN, INDUSTRIAL ARTS TEACHER Unavailable [phone]- [phone] Encounter Details Date Type Department Care Team (Late st Contact Info) Description 10/01/2021 Lab Requisition [facility] Services 1 [place] [address] Louie Purdy MD [address] [place] [address] [address] [place] [address] Encounter for screening for COVID-19 Social History [...] [facility] - Cardiology [facility] #2 [place] [phone] Liss Jo APRN, INDUSTRIAL ARTS TEACHER [address] [place] [address] documented as of this encounter Procedures Procedure Name Priority Date/Time Associated Diagnosis Comments SARS-COV-2 BY MOLECULAR Routine 10/01/2021 8:15 AM SOFTWARE SUPPORT ANALYST Encounter for screening for COVID-19 documented in this encounter Results * SARS-COV-2 BY MOLECULAR (10/01/2021 8:15 AM SOFTWARE SUPPORT ANALYST) SARSCOV2 NOT DETECTED (Referen ce Range for this test is Not Detected ) [facility] THERMOFISHER FAST DX 10/06/2021 7:17 AM SOFTWARE SUPPORT ANALYST [facility] Comment:This test was perfor med by a RT-PCR method. Other Non-Phlebotomy Collection / Unknown 10/01/2021 8:15 AM SOFTWARE SUPPORT ANALYST 10/01/2021 11:20 AM SOFTWARE SUPPORT ANALYST Narrative [facility] - 10/06/2021 7:17 AM SOFTWARE SUPPORT ANALYST Authorized Fact Sheets about this test for providers and patients are available at: https://www.fda.gov/medical-devices/faqcsfmqm-wahlmignii-llbbtzj-devices/emergen cy-us e-authorizations us Louie Purdy MD MICROBIOLOGY - GENERAL ORDERAB LES Final Result [facility] [address] [place] [address], documented in this encounter Visit Diagnoses Diagnosis Encounter for screening for COVID-19 documented in this encounter Additional Health Concerns Infection Onset Date Last Indicated Resolved Time COVID - 19 07/02/2021 04/08/2022 04/08/2022 11:4 5 PM CDT COVID - 19 Confirmed 04/08/2022 04/08/202204/28/ 022 12:16 AM CDT COVID - 19 04/29/2022 06/03/2022 06/13/2022 12:1 6 AM CDT COVID - 19 06/17/2022 06/17/2022 06/27/2022 12:1 6 AM CDT COVID - 19 07/01/2022 08/19/2022 08/29/2022 12:1 6 AM SOFTWARE SUPPORT ANALYST COVID - 19 10/07/2022 12/23/2022 01/02/2023 12:1 6 AM CDT documented as of this encounter Care Teams Billboard Mechanic Relationship Specialty Start Date End Date Trupti Spence MD PCP - General Family Medicine 02/19/16 11/23/22 Provider, Unknown UNKNOWN PCP - General 11/25/22 12/03/22 Evette Melo MD UNKNOWN PCP - General Family Medicine 12/04/22 04/12/24 Norma Mya MD [address] [place] [address] PCP - General Family Medicine 04/13/24 Meryl Martinez APRN, INDUSTRIAL ARTS TEACHER #2 [facility], [address] [place] [address] Nurse Practitioner Cardiology 07/25/24 documented as of this encounter
--- OUTSIDE RECORDS SUMMARY | 2025-03-13 09:17 | XMS_ITS | Encounter Summary ---
Author Organization [facility] Address [address] [place] [address] Phone Care Team Providers Care Machinery Dismantler Name Role Phone Trupti Spence MD Primary Care Provider Provider, Unknown Primary Care Provider Unavaila Evette Persaud MD Primary Care Provider Unavailable Norma May MD Primary Care Provider Meryl Martinez APRN, EVENTS TRAFFIC CONTROLLER Unavailable [phone]- [phone] Encounter Details Date Type Department Care Team (Late st Contact Info) Description 08/13/2021 [facility] 1 [place] [id number] Louie Purdy MD [address] [place] [address] [facility] [address] [place] [address] Social History Tobacco Use Types Packs/Day Years [...] Office Visit [facility] - Cardiology [facility] #2 [place] [address] Sandro Lissbelkis Fernandez APRN, EVENTS TRAFFIC CONTROLLER #2 [facility] [place] [address] documented as of this encounter Procedures Procedure Name Priority Date/Time Associated Diagnosis Comments SARS-COV-2 BY MOLECULAR Routine 08/13/2021 8:12 AM CDT documented in this encounter Results * SARS-COV-2 BY MOLECULAR (08/13/2021 8:12 AM CDT) SARSCOV2 NOT DETECTED (Referen ce Range for this test is Not Detected ) [facility] THERMOFISHER FAST DX 08/14/2021 12:01 AM CDT [facility] Comment:This test was perfor med by a RT-PCR method. Other No Phlebotomy Charged / Unknown 08/13/2021 8:12 AM CDT 08/13/2021 11:11 AM CDT Narrative [facility] - 08/14/2021 12:01 AM CDT Authorized Fact Sheets about this test for providers and patients are available at: https://www.fda.gov/medical-devices/wqvqkpyio-vsugnkcuvl-fpmtavp-devices/emergen -us e-authorizations us Louie Purdy MD MICROBIOLOGY - GENERAL ORDERAB LES Final Result Performing Organization Address City/State/[facility] Co de Phone Number [facility] [address] [place] [address], documented in this encounter Visit Diagnoses Not [...] 19 07/01/2022 08/19/2022 08/29/2022 12:1 6 AM POWDER BLENDER COVID - 19 10/07/2022 12/23/2022 01/02/2023 12:1 6 AM CDT documented as of this encounter Care Teams Machinery Dismantler Relationship Specialty Start Date End Date Trupti Spence MD PCP - General Family Medicine 02/19/16 11/23/22 Provider, Unknown UNKNOWN PCP - General 11/25/22 12/03/22 Evette Melo MD UNKNOWN PCP - General Family Medicine 12/04/22 04/12/24 Norma May MD [address] [place] [address] PCP - General Family Medicine 04/13/24 Meryl Martinez APRN, EVENTS TRAFFIC CONTROLLER #2 [facility], [address] [place] [address] Nurse Practitioner Cardiology 07/25/24 documented as of this encounter
--- OUTSIDE RECORDS SUMMARY | 2025-03-13 09:17 | XMS_ITS | Encounter Summary ---
Author Organization [facility] Address [address] [place] [address] Phone Care Team Providers Care Carpenter Mate Name Role Phone Trupti Spence MD Primary Care Provider Provider, Unknown Primary Care Provider Unavaila Evette Persaud MD Primary Care Provider Unavailable Norma May MD Primary Care Provider Meryl Martinez APRN, ASSEMBLER PLASTIC BOAT Unavailable [phone] Encounter Details Date Type Department Care Team (Late st Contact Info) Description 08/20/2021 Lab Requisition [facility] Services 1 [place] [address] Louie Purdy MD [address] [place] [address] [address] [place] [address] Encounter for screening for COVID-19 Social History [...] Group - Cardiology [facility] #2 [place] [phone] Liss Jo APRN, ASSEMBLER PLASTIC BOAT [address] [place] [address] documented as of this encounter Procedures Procedure Name Priority Date/Time Associated Diagnosis Comments SARS-COV-2 BY MOLECULAR Routine 08/20/2021 8:24 AM AIRCRAFT INSTRUMENT REPAIRER Encounter for screening for COVID-19 documented in this encounter Results * SARS-COV-2 BY MOLECULAR (08/20/2021 8:24 AM AIRCRAFT INSTRUMENT REPAIRER) SARSCOV2 NOT DETECTED (Referen ce Range for this test is Not Detected ) [facility] THERMOFISHER FAST DX 08/21/2021 7:26 AM AIRCRAFT INSTRUMENT REPAIRER [facility] Comment:This test was perfor med by a RT-PCR method. Other Non-Phlebotomy Collection / Unknown 08/20/2021 8:24 AM AIRCRAFT INSTRUMENT REPAIRER 08/20/2021 10:58 AM AIRCRAFT INSTRUMENT REPAIRER Narrative [facility] - 08/21/2021 7:26 AM AIRCRAFT INSTRUMENT REPAIRER Authorized Fact Sheets about this test for providers and patients are available at: https://www.fda.gov/medical-devices/rivhnqmrl-payhoxzjui-wvesrfx-devices/emergen cy-us e-authorizations us Louie Purdy MD MICROBIOLOGY - GENERAL ORDERAB LES Final Result [facility] [address] [place] [address], documented in this encounter Visit Diagnoses Diagnosis [...] 19 07/01/2022 08/19/2022 08/29/2022 12:1 6 AM AIRCRAFT INSTRUMENT REPAIRER COVID - 19 10/07/2022 12/23/2022 01/02/2023 12:1 6 AM CDT documented as of this encounter Care Teams Carpenter Mate Relationship Specialty Start Date End Date Trupti Spence MD PCP - General Family Medicine 02/19/16 11/23/22 Provider, Unknown UNKNOWN PCP - General 11/25/22 12/03/22 Evette Melo MD UNKNOWN PCP - General Family Medicine 12/04/22 04/12/24 Norma May MD [address] [place] [address] PCP - General Family Medicine 04/13/24 Meryl Martinez APRN, ASSEMBLER PLASTIC BOAT #2 [facility], [address] [place] [address] Nurse Practitioner Cardiology 07/25/24 documented as of this encounter
--- OUTSIDE RECORDS SUMMARY | 2025-03-13 09:17 | XMS_ITS | Encounter Summary ---
Author Organization [facility] Address [address] [place] [address] Phone Care Team Providers Care Global Safety Officer Name Role Phone Trupti Spence MD Primary Care Provider [phone] Matthew Bansal MD Unavailable Norma Osorio NP Unavailable [phone] Encounter Details Date Type Department Care Team (Late st Contact Info) Description 09/24/2021 Orders Only [facility] [address] [place] [address] Scanning, Provider Social History Tobacco Use Types Packs/Day Years Used Date Smoking Tobacco: Never Smokeless Tobacco: Never Alcohol Use Standard Drinks/Week Comments No 0 (1 standard drink = 0.6 oz pur e alcohol) PHQ-2 Answer Date Recorded PHQ-2 Total Score (If total score is 3 or more points, staff should administer the PHQ-9) 0 08/20/2021 Comments Unknown Sex and Gender Information Value Date Recorded Sex Assigned at Not on file Legal Sex Female 3:53 AM FEDERAL JUDICIAL LAW CLERK Gender Identity Not on file Sexual Orientation Not on file documented as of this encounter Plan of Treatment Not on file documented as of this encounter Procedures Procedure Name Priority Date/Time Associated Diagnosis Comments SCAN - LABS 09/24/2021 documented in this encounter Results * SCAN - LABS (09/24/2021) us Provider Scanning Final Result documented in this encounter Visit Diagnoses Not on filedocumented in this encounter Care Teams Global Safety Officer Relationship Specialty Start Date End Date Trupti Spence MD PCP - General 01/08/17 01/20/22 [place] [address] [address] [facility] [address] [place], [place] [id number] Consulting Physician Endocrinology Diabetes & Metabolism 12/05/18 [place] [address] [address] [facility] [address] [place], [place] [id number] Nurse Practitioner Internal Medicine 12/05/18 documented as of this encounter
--- OUTSIDE RECORDS SUMMARY | 2025-03-13 09:17 | XMS_ITS | Encounter Summary ---
Author Organization [facility] Address [address] [place] [address] Phone Care Team Providers Care Industrial Methods Consultant Name Role Phone Trupti Spence MD Primary Care Provider Provider, Unknown Primary Care Provider Unavaila Evette Persaud MD Primary Care Provider Unavailable Norma May MD Primary Care Provider Meryl Martinez APRN, BURSAR Unavailable [phone] Encounter Details Date Type Department Care Team (Late st Contact Info) Description 09/17/2021 Lab Requisition [facility] 1 [place] [address] Louie Purdy MD [address] [place] [address] [address] [place] [address] Encounter for screening for COVID-19 Social History [...] Visit [facility] - Cardiology [facility] #2 [place] [phone] Liss Jo APRN, BURSAR [address] [place] [address] documented as of this encounter Procedures Procedure Name Priority Date/Time Associated Diagnosis Comments SARS-COV-2 BY MOLECULAR Routine 09/17/2021 8:23 AM INSECTICIDE MIXER Encounter for screening for COVID-19 documented in this encounter Results * SARS-COV-2 BY MOLECULAR (09/17/2021 8:23 AM INSECTICIDE MIXER) SARSCOV2 NOT DETECTED (Referen ce Range for this test is Not Detected ) [facility] THERMOFISHER FAST DX 09/18/2021 3:36 PM INSECTICIDE MIXER [facility] Comment:This test was perfor med by a RT-PCR method. Other No Phlebotomy Charged / Unknown 09/17/2021 8:23 AM INSECTICIDE MIXER 09/17/2021 9:25 PM INSECTICIDE MIXER Narrative [facility] - 09/18/2021 3:36 PM INSECTICIDE MIXER Authorized Fact Sheets about this test for providers and patients are available at: https://www.fda.gov/medical-devices/ankiemktv-cdmtklhsfj-tvgybjy-devices/emergen cy-us e-authorizations us Louie Purdy MD MICROBIOLOGY - GENERAL ORDERAB LES Final Result [facility] [address] [place] [address], documented in this encounter Visit Diagnoses Diagnosis [...] 19 07/01/2022 08/19/2022 08/29/2022 12:1 6 AM INSECTICIDE MIXER COVID - 19 10/07/2022 12/23/2022 01/02/2023 12:1 6 AM CDT documented as of this encounter Care Teams Industrial Methods Consultant Relationship Specialty Start Date End Date Trupti Spence MD PCP - General Family Medicine 02/19/16 11/23/22 Provider, Unknown UNKNOWN PCP - General 11/25/22 12/03/22 Evette Melo MD UNKNOWN PCP - General Family Medicine 12/04/22 04/12/24 Norma May MD [address] [place] [address] PCP - General Family Medicine 04/13/24 Meryl Martinez APRN, BURSAR #2 [facility], [address] [place] [address] Nurse Practitioner Cardiology 07/25/24 documented as of this encounter
--- OUTSIDE RECORDS SUMMARY | 2025-03-13 09:17 | XMS_ITS | Encounter Summary ---
Author Organization [facility] Address [address] [place] [address] Phone Care Team Providers Care Phlebotomy Specialist Name Role Phone Trupti Spence MD Primary Care Provider Provider, Unknown Primary Care Provider Unavaila Evette Persaud MD Primary Care Provider Unavailable Norma May MD Primary Care Provider Meryl Martinze APRN, METAL POLISHER Unavailable [phone] Encounter Details Date Type Department Care Team (Late st Contact Info) Description 07/30/2021 Lab Requisition [facility] Laboratory Services 1 [place] [address] Louie Purdy MD [address] [place] [address] [address] [place] [address] Encounter for screening for COVID-19 Social History [...] Office Visit [facility] - Cardiology [facility] #2 [place] [phone] Liss Jo APRN, METAL POLISHER [address] [place] [address] documented as of this encounter Procedures Procedure Name Priority Date/Time Associated Diagnosis Comments SARS-COV-2 BY MOLECULAR Routine 07/30/2021 8:27 AM CDT Encounter for screening for COVID-19 documented in this encounter Results * SARS-COV-2 BY MOLECULAR (07/30/2021 8:27 AM CDT) SARSCOV2 NOT DETECTED (Referen ce Range for this test is Not Detected ) [facility] THERMOFISHER FAST DX 07/31/2021 8:50 AM CDT [facility] Comment:This test was perfor med by a RT-PCR method. Other Non-Phlebotomy Collection / Unknown 07/30/2021 8:27 AM CDT 07/30/2021 11:23 AM CDT Narrative [facility] - 07/31/2021 8:50 AM CDT Authorized Fact Sheets about this test for providers and patients are available at: https://www.fda.gov/medical-devices/kjarvnkzx-ultggwmazd-vlwppyi-devices/emergen -us e-authorizations us Louie Purdy MD MICROBIOLOGY - GENERAL ORDERAB LES Final Result [facility] [address] [facility] [place] [address], documented in this encounter Visit Diagnoses Diagnosis [...] 19 07/01/2022 08/19/2022 08/29/2022 12:1 6 AM FILTER PRESS OPERATOR COVID - 19 10/07/2022 12/23/2022 01/02/2023 12:1 6 AM CDT documented as of this encounter Care Teams Phlebotomy Specialist Relationship Specialty Start Date End Date Trupti Spence MD PCP - General Family Medicine 02/19/16 11/23/22 Provider, Unknown UNKNOWN PCP - General 11/25/22 12/03/22 Evette Melo MD UNKNOWN PCP - General Family Medicine 12/04/22 04/12/24 Norma May MD [address] [place] [address] PCP - General Family Medicine 04/13/24 Meryl Martinez APRN, METAL POLISHER #2 [facility], [address] [place] [address] Nurse Practitioner Cardiology 07/25/24 documented as of this encounter
--- OUTSIDE RECORDS SUMMARY | 2025-03-13 09:17 | XMS_ITS | Encounter Summary ---
Author Organization [facility] Address [address] [place] [address] Phone Care Team Providers Care Client Evaluator Name Role Phone Norma May MD Primary Care Provider +1- [phone] Meryl Martinez APRN, LAND MEASURER Unavailable +1- [phone] Encounter Details Date Type Department Care Team (Late st Contact Info) Description 02/21/2025 Lab Requisition [facility] Laboratory Services 1 [place] [address] Louie Purdy MD [address] [place] [address] [facility] [address] [place] [address] Essential (primary) hypertension; Chronic kidney disease, stage 3a (HCC); Edema, unspecified Social History Tobacco Use Types Packs/Day Years Used Date Smoking Tobacco: Never Smokeless Tobacco: Never Alcohol Use Standard Drinks/Week Comments No 0 (1 standard drink = 0.6 oz pur e alcohol) [facility] Utilities Answer Date Recorded In the past 12 months has [employer] electric, gas, oil, or water company threatened [...] declined 06/08/2024 How often do you attend religious or rastafarian serv ices? Patient declined 06/08/2024 Do you belong to any clubs o r organizations such as religious groups, unions, fraternal or athletic groups, or [...] medical care, and heating? Patient declined 06/08/2024 [facility] - Occupational Stress Questionnaire Answer Date [...] any time in the past 12 m ont, were you homeless or living in a usp (including now)? Patient declined 06/08/2024 Comments No [...] Visit [facility] - [place] #2 [place] [address] Liss Jo APRN, LAND MEASURER #2 [place] [address] documented as of this encounter Procedures Procedure Name Priority Date/Time Associated Diagnosis Comments MAGNESIUM (MG) Routine 02/21/2025 7:00 AM CDT Essential (primary) hypertension Chronic kidney disease, stage 3a (HCC) Edema, unspecified HEPATIC FUNCTION PANEL Routine 02/21/2025 7:00 AM CDT Essential (primary) hypertension Chronic kidney disease, stage 3a (HCC) Edema, unspecified documented in this encounter Results * MAGNESIUM (MG) (02/21/2025 7:00 AM CDT) MAGNESIUM 2.0 1.6 - 2.6 mg/dL 02/21/2025 10:49 AM CDT [facility] Blood Venipuncture / Unknown 02/21/2025 7:00 AM CDT 02/21/2025 8:22 AM CDT us Louie Purdy MD CHEMISTRY ORDERABLES Final Res ult [facility] #1 [place] [address] * (ABNORMAL) HEPATIC FUNCTION PANEL (02/21/2025 7:00 AM CDT) T BILI 0.6 0.2 - 1.2 mg/dL 02/21/2025 10:49 AM CDT [facility] BILIRUBIN,DIRECT 0.2 0.0 - 0.5 mg/dL 02/21/2025 10:49 AM CDT [facility] ALKALINE PHOSPHATASE 51 40 - 150 U/L 02/21/2025 10:49 AM CDT [facility] SGOT (AST) 24 <43 U/L 02/21/2025 10:49 AM CDT [facility] SGPT (ALT) 9 <56 U/L 02/21/2025 10:49 AM CDT [facility] TOTAL PROTEIN 6.4 6.0 - 8.0 g/dL 02/21/2025 10:49 AM CDT [facility] ALBUMIN 3.3(L) 3.5 - 5.0 g/dL 02/21/2025 10:49 AM CDT [facility] Blood Venipuncture / Unknown 02/21/2025 7:00 AM CDT 02/21/2025 8:22 AM CDT us Louie Purdy MD CHEMISTRY ORDERABLES Final Res ult [facility] #1 [place] [address] documented in this encounter Visit Diagnoses Diagnosis Essential (primary) hypertension Unspecified essential hypertension Chronic kidney disease, stage 3a (HCC) Edema, unspecified documented in this encounter Care Teams Client Evaluator Relationship Specialty Start Date End Date Norma May MD [address] [place] [address] PCP - General Family Medicine 04/13/24 Meryl Martinez APRN, LAND MEASURER #2 [facility], [address] [place] [address] Nurse Practitioner Cardiology 07/25/24 documented as of this encounter
--- OUTSIDE RECORDS SUMMARY | 2025-03-13 09:17 | XMS_ITS | Encounter Summary ---
Author Organization [facility] Address [address] [place] [address] Phone Care Team Providers Care Group Program Manager Name Role Phone Trupti Spence MD Primary Care Provider Provider, Unknown Primary Care Provider Unavaila Evette Persaud MD Primary Care Provider Unavailable Norma May MD Primary Care Provider Meryl Martinez APRN, TIMBER INCISOR OPERATOR Unavailable [phone]- [phone] Encounter Details Date Type Department Care Team (Late st Contact Info) Description 03/18/2022 Lab Requisition [facility] Laboratory Services 1 [place] [address] Louie Purdy MD [address] [place] [address] [address] [place] [address] Encounter for screening for COVID-19 Social History [...] [facility] #2 [place] [address] Liss Jo APRN, TIMBER INCISOR OPERATOR #2 [place] [address] documented as of this encounter Procedures Procedure Name Priority Date/Time Associated Diagnosis Comments SARS-COV-2 BY MOLECULAR Routine 03/18/2022 8:34 AM CDT Encounter for screening for COVID-19 documented in this encounter Results * SARS-COV-2 BY MOLECULAR (03/18/2022 8:34 AM CDT) SARSCOV2 NOT DETECTED (Referen ce Range for this test is Not Detected ) [facility] THERMOFISHER FAST DX 03/19/2022 9:54 AM CDT [facility] Comment:This test was perfor med by a RT-PCR method. Other Non-Phlebotomy Collection / Unknown 03/18/2022 8:34 AM CDT 03/18/2022 1:13 PM CDT Narrative [facility] - 03/19/2022 9:54 AM CDT Authorized Fact Sheets about this test for providers and patients are available at: https://www.fda.gov/medical-devices/ypzsicwbp-fotxdhmhta-yyczfvz-devices/emergen -us e-authorizations us Louie Purdy MD MICROBIOLOGY - GENERAL ORDERAB LES Final Result [facility] [address] [facility] [place] [address], documented in this encounter Visit Diagnoses Diagnosis [...] 19 07/01/2022 08/19/2022 08/29/2022 12:1 6 AM ACCOUNT ENGINEER COVID - 19 10/07/2022 12/23/2022 01/02/2023 12:1 6 AM CDT documented as of this encounter Care Teams Group Program Manager Relationship Specialty Start Date End Date Trupti Spence MD PCP - General Family Medicine 02/19/16 11/23/22 Provider, Unknown UNKNOWN PCP - General 11/25/22 12/03/22 Evette Melo MD UNKNOWN PCP - General Family Medicine 12/04/22 04/12/24 Norma May MD [address] [place] [address] PCP - General Family Medicine 04/13/24 Meryl Martinez APRN, TIMBER INCISOR OPERATOR #2 [facility], [address] [place] [address] Nurse Practitioner Cardiology 07/25/24 documented as of this encounter
--- OUTSIDE RECORDS SUMMARY | 2025-03-13 09:17 | XMS_ITS | Encounter Summary ---
Author Organization [facility] Address [address] [place] [address] Phone Care Team Providers Care Railroad Crossing Protection Maintainer Name Role Phone Trupti Spence MD Primary Care Provider [phone] Provider, Unknown Primary Care Provider Unavaila Evette Persaud MD Primary Care Provider Unavailable Norma May MD Primary Care Provider Meryl Martinez APRN, GAS OR PETROLEUM OPERATOR Unavailable [phone]- [phone] Encounter Details Date Type Department Care Team (Late st Contact Info) Description 09/24/2021 Lab Requisition [facility] Laboratory Services 1 [place] [address] Louie Purdy MD [address] [place] [address] [address] [place] [address] Encounter for screening for COVID-19 Social History [...] Medical Group - Cardiology [facility] #2 [place] [address] Liss Jo APRN, GAS OR PETROLEUM OPERATOR #2 [place] [address] documented as of this encounter Procedures Procedure Name Priority Date/Time Associated Diagnosis Comments SARS-COV-2 BY MOLECULAR Routine 09/24/2021 8:24 AM DYE COLORIST FORMULATOR Encounter for screening for COVID-19 documented in this encounter Results * SARS-COV-2 BY MOLECULAR (09/24/2021 8:24 AM DYE COLORIST FORMULATOR) SARSCOV2 NOT DETECTED (Referen ce Range for this test is Not Detected ) [facility] THERMOFISHER FAST DX 09/25/2021 6:00 PM DYE COLORIST FORMULATOR [facility] Comment:This test was perfor med by a RT-PCR method. Other No Phlebotomy Charged / Unknown 09/24/2021 8:24 AM DYE COLORIST FORMULATOR 09/24/2021 11:40 AM DYE COLORIST FORMULATOR Narrative [facility] - 09/25/2021 6:00 PM DYE COLORIST FORMULATOR Authorized Fact Sheets about this test for providers and patients are available at: https://www.fda.gov/medical-devices/giwxleywr-qyjmnzmxzd-daojsja-devices/emergen cy-us e-authorizations us Louie Purdy MD MICROBIOLOGY - GENERAL ORDERAB LES Final Result [facility] [address] [place] [address], documented in this encounter Visit Diagnoses Diagnosis [...] 19 07/01/2022 08/19/2022 08/29/2022 12:1 6 AM DYE COLORIST FORMULATOR COVID - 19 10/07/2022 12/23/2022 01/02/2023 12:1 6 AM CDT documented as of this encounter Care Teams Railroad Crossing Protection Maintainer Relationship Specialty Start Date End Date Trupti Spence MD PCP - General Family Medicine 02/19/16 11/23/22 Provider, Unknown UNKNOWN PCP - General 11/25/22 12/03/22 Evette Melo MD UNKNOWN PCP - General Family Medicine 12/04/22 04/12/24 Norma May MD [address] [place] [address] PCP - General Family Medicine 04/13/24 Meryl Martinez APRN, GAS OR PETROLEUM OPERATOR #2 [facility], [address] [place] [address] Nurse Practitioner Cardiology 07/25/24 documented as of this encounter
--- OUTSIDE RECORDS SUMMARY | 2025-03-13 09:17 | XMS_ITS | Encounter Summary ---
Author Organization [facility] Address [address] [place] [address] Phone Care Team Providers Care Vba Developer Name Role Phone Norma May MD Primary Care Provider [phone]- [phone] Meryl Martinez APRN, UTILIZATION REVIEW NURSE Unavailable [phone]- [phone] Encounter Details Date Type Department Care Team (Late st Contact Info) Description 02/14/2025 Lab Requisition [facility] Laboratory Services 1 [place] [address] Louie Purdy MD [address] [place] [address] [facility] [address] [place] [address] Unspecified hearing loss, bilateral; Hypothyroidism, unspecified; Hyperlipidemia, unspecified; Vitamin D deficiency, unspecified; Essential (primary) hypertension; Mild intellectual disabilities Social History Tobacco Use Types Packs/Day Years Used Date Smoking Tobacco: Never Smokeless Tobacco: Never Alcohol Use Standard Drinks/Week Comments No 0 (1 standard drink = 0.6 oz pur e alcohol) [facility] Utilities Answer Date Recorded In the past 12 months has [employer] electric, gas, oil, or water company threatened [...] declined 06/08/2024 How often do you attend bahai or rastafari serv ices? Patient declined 06/08/2024 Do you belong to any clubs o r organizations such as bahai groups, unions, fraternal or athletic groups, or [...] medical care, and heating? Patient declined 06/08/2024 [facility] - Occupational Stress Questionnaire Answer Date Recorded [...] any time in the past 12 m [facility], were you homeless or living in a longterm (including now)? Patient declined 06/08/2024 Comments No [...] Visit [facility] - [place] #2 [place] [address] Liss Jo APRN, UTILIZATION REVIEW NURSE #2 [place] [address] documented as of this encounter Procedures Procedure Name Priority Date/Time Associated Diagnosis Comments B-TYPE NATRIURETIC PEPTIDE (BNP) Routine 02/14/2025 7:42 AM CDT Unspecified hearing loss, bilateral Hypothyroidism, unspecified Hyperlipidemia, unspecified Vitamin D deficiency, unspecified Essential (primary) hypertension Mild intellectual disabilities documented in this encounter Results * (ABNORMAL) B-TYPE NATRIURETIC PEPTIDE (BNP) (02/14/2025 7:42 AM CDT) B TYPE NATRIURETIC PEPTIDE 394(H) <100 pg/mL 02/14/2025 9:30 AM CDT [facility] Blood Venipuncture / Unknown 02/14/2025 7:42 AM CDT 02/14/2025 8:56 AM CDT us Louie Purdy MD CHEMISTRY ORDERABLES Final Res ult [facility] #[address] [place] [address] documented in this encounter Visit Diagnoses Diagnosis Unspecified hearing loss, bilateral Hypothyroidism, unspecified Hyperlipidemia, unspecified Vitamin D deficiency, unspecified Essential (primary) hypertension Unspecified essential hypertension Mild intellectual disabilities documented in this encounter Care Teams Vba Developer Relationship Specialty Start Date End Date Norma May MD [address] [place] [address] PCP - General Family Medicine 04/13/24 Meryl Martinez APRN, UTILIZATION REVIEW NURSE #2 [facility], [address] [place] [address] Nurse Practitioner Cardiology 07/25/24 documented as of this encounter
--- OUTSIDE RECORDS SUMMARY | 2025-03-13 09:17 | XMS_ITS | Encounter Summary ---
Author Organization [facility] Address [address] [place] [address] Phone Care Team Providers Care Pouncing Machine Operator Name Role Phone Trupti Spence MD Primary Care Provider Provider, Unknown Primary Care Provider Unavaila Evette Persaud MD Primary Care Provider Unavailable Norma May MD Primary Care Provider Meryl Martinez APRN, STREET AND BUILDING DECORATOR Unavailable [phone]- [phone] Encounter Details Date Type Department Care Team (Late st Contact Info) Description 03/11/2022 Lab Requisition [facility] Laboratory Services 1 [place] [address] Louie Purdy MD [address] [place] [address] [address] [place] [address] Encounter for screening for COVID-19 Social History [...] Office Visit [facility] - Cardiology [facility] #2 [place] [address] Liss Jo APRN, STREET AND BUILDING DECORATOR #2 [place] [address] documented as of this encounter Procedures Procedure Name Priority Date/Time Associated Diagnosis Comments SARS-COV-2 BY MOLECULAR Routine 03/11/2022 8:43 AM CDT Encounter for screening for COVID-19 documented in this encounter Results * SARS-COV-2 BY MOLECULAR (03/11/2022 8:43 AM CDT) SARSCOV2 NOT DETECTED (Referen ce Range for this test is Not Detected ) [facility] THERMOFISHER FAST DX 03/12/2022 1:55 PM CDT [facility] Comment:This test was perfor med by a RT-PCR method. Other No Phlebotomy Charged / Unknown 03/11/2022 8:43 AM CDT 03/11/2022 12:23 PM CDT Narrative [facility] - 03/12/2022 1:55 PM CDT Authorized Fact Sheets about this test for providers and patients are available at: https://www.fda.gov/medical-devices/sszhvumqd-zrihlhzysp-cncpfie-devices/emergen -us e-authorizations us Louie Purdy MD MICROBIOLOGY - GENERAL ORDERAB LES Final Result [facility] [address] [facility] [place] [address], documented in this encounter Visit Diagnoses Diagnosis [...] 19 07/01/2022 08/19/2022 08/29/2022 12:1 6 AM TOOL AND DIE INSPECTOR COVID - 19 10/07/2022 12/23/2022 01/02/2023 12:1 6 AM CDT documented as of this encounter Care Teams Pouncing Machine Operator Relationship Specialty Start Date End Date Trupti Spence MD PCP - General Family Medicine 02/19/16 11/23/22 Provider, Unknown UNKNOWN PCP - General 11/25/22 12/03/22 Evette Melo MD UNKNOWN PCP - General Family Medicine 12/04/22 04/12/24 Norma May MD [address] [place] [address] PCP - General Family Medicine 04/13/24 Meryl Martinez APRN, STREET AND BUILDING DECORATOR #2 [facility], [address] [place] [address] Nurse Practitioner Cardiology 07/25/24 documented as of this encounter
--- OUTSIDE RECORDS SUMMARY | 2025-03-13 09:17 | XMS_ITS | Encounter Summary ---
Author Organization [facility] Address [address] [place] [address] Phone Care Team Providers Care Payment Processor Name Role Phone Trupti Spence MD Primary Care Provider [phone] Provider, Unknown Primary Care Provider Unavaila Evette Persaud MD Primary Care Provider Unavailable Norma May MD Primary Care Provider Meryl Martinez APRN, AURICULOTHERAPIST Unavailable [phone]- [phone] Encounter Details Date Type Department Care Team (Late st Contact Info) Description 08/06/[address] [facility] Laboratory Services 1 [place] [address] Louie Purdy MD [address] [place] [address] [address] [place] [address] Encounter for screening for COVID-19 Social History [...] - Cardiology [facility] #2 [place] [address] Liss Jo APRN, AURICULOTHERAPIST #2 [place] [address] documented as of this encounter Procedures Procedure Name Priority Date/Time Associated Diagnosis Comments SARS-COV-2 BY MOLECULAR Routine 08/06/2021 8:12 AM CDT Encounter for screening for COVID-19 documented in this encounter Results * SARS-COV-2 BY MOLECULAR (08/06/2021 8:12 AM CDT) SARSCOV2 NOT DETECTED (Referen ce Range for this test is Not Detected ) [facility] THERMOFISHER FAST DX 08/07/2021 9:05 AM CDT [facility] Comment:This test was perfor med by a RT-PCR method. Other Non-Phlebotomy Collection / Unknown 08/06/2021 8:12 AM CDT 08/06/2021 11:35 AM CDT Narrative [facility] - 08/07/2021 9:05 AM CDT Authorized Fact Sheets about this test for providers and patients are available at: https://www.fda.gov/medical-devices/ligtnkhjk-jdrfcxknyu-mnmoqdb-devices/emergen -us e-authorizations us Louie Purdy MD MICROBIOLOGY - GENERAL ORDERAB LES Final Result [facility] [address] [facility] [place] [address], documented in this encounter Visit Diagnoses Diagnosis [...] 19 07/01/2022 08/19/2022 08/29/2022 12:1 6 AM SPECIAL EQUIPMENT TECHNICIAN COVID - 19 10/07/2022 12/23/2022 01/02/2023 12:1 6 AM CDT documented as of this encounter Care Teams Payment Processor Relationship Specialty Start Date End Date Trupti Spence MD PCP - General Family Medicine 02/19/16 11/23/22 Provider, Unknown UNKNOWN PCP - General 11/25/22 12/03/22 Evette Melo MD UNKNOWN PCP - General Family Medicine 12/04/22 04/12/24 Norma May MD [address] [place] [address] PCP - General Family Medicine 04/13/24 Meryl Martinez APRN, AURICULOTHERAPIST #2 [facility], [address] [place] [address] Nurse Practitioner Cardiology 07/25/24 documented as of this encounter
--- OUTSIDE RECORDS SUMMARY | 2025-03-13 09:17 | XMS_ITS | Encounter Summary ---
Author Organization [facility] Address [address] [place] [address] Phone Care Team Providers Care Brush And Broom Clipper Name Role Phone Trupti Spence MD Primary Care Provider Provider, Unknown Primary Care Provider Unavaila Evette Persaud MD Primary Care Provider Unavailable Norma May MD Primary Care Provider Meryl Martinez APRN, MANAGER AGRICULTURAL Unavailable [phone]- [phone] Encounter Details Date Type Department Care Team (Late st Contact Info) Description 04/01/2022 Lab Requisition [facility] Laboratory Services 1 [place] [address] Louie Purdy MD [address] [place] [address] [address] [place] [address] Encounter for screening for COVID-19 Social History [...] Group - Cardiology [facility] #2 [place] [address] Liss Jo APRN, MANAGER AGRICULTURAL #2 [place] [address] documented as of this encounter Procedures Procedure Name Priority Date/Time Associated Diagnosis Comments SARS-COV-2 BY MOLECULAR Routine 04/01/2022 8:19 AM CDT Encounter for screening for COVID-19 documented in this encounter Results * SARS-COV-2 BY MOLECULAR (04/01/2022 8:19 AM CDT) SARSCOV2 NOT DETECTED (Referen ce Range for this test is Not Detected ) [facility] THERMOFISHER FAST DX 04/01/2022 10:13 PM CDT [facility] Comment:This test was perfor med by a RT-PCR method. Other Non-Phlebotomy Collection / Unknown 04/01/2022 8:19 AM CDT 04/01/2022 9:27 AM CDT Narrative [facility] - 04/01/2022 10:13 PM CDT Authorized Fact Sheets about this test for providers and patients are available at: https://www.fda.gov/medical-devices/knonjpajt-thffgdjohl-iwmewla-devices/emergen -us e-authorizations us Louie Purdy MD MICROBIOLOGY - GENERAL ORDERAB LES Final Result [facility] [address] [place] [address], documented in this encounter Visit Diagnoses Diagnosis [...] 19 07/01/2022 08/19/2022 08/29/2022 12:1 6 AM AEROSOL SUPERVISOR COVID - 19 10/07/2022 12/23/2022 01/02/2023 12:1 6 AM CDT documented as of this encounter Care Teams Brush And Broom Clipper Relationship Specialty Start Date End Date Trupti Spence MD PCP - General Family Medicine 02/19/16 11/23/22 Provider, Unknown UNKNOWN PCP - General 11/25/22 12/03/22 Evette Melo MD UNKNOWN PCP - General Family Medicine 12/04/22 04/12/24 Norma May MD [address] [place] [address] PCP - General Family Medicine 04/13/24 Meryl Martinez APRN, MANAGER AGRICULTURAL #2 [facility], [address] [place] [address] Nurse Practitioner Cardiology 07/25/24 documented as of this encounter
--- OUTSIDE RECORDS SUMMARY | 2025-03-13 09:17 | XMS_ITS | Encounter Summary ---
Author Organization [facility] Address [address] [place] [address] Phone Care Team Providers Care Felt Cutting Machine Operator Name Role Phone Trupti Spence MD Primary Care Provider Provider, Unknown Primary Care Provider Unavaila Evette Persaud MD Primary Care Provider Unavailable Norma May MD Primary Care Provider Meryl Martinez APRN, MORTGAGE ADVISOR Unavailable [phone]- [phone] Encounter Details Date Type Department Care Team (Late st Contact Info) Description 07/16/[address] [facility] Laboratory Services 1 [place] [address] Louie Purdy MD [address] [place] [address] [address] [place] [address] Encounter for screening for COVID-19 Social History [...] Office Visit [facility] - Cardiology [facility] #2 [place] [address] Liss Jo APRN, MORTGAGE ADVISOR #2 [place] [address] documented as of this encounter Procedures Procedure Name Priority Date/Time Associated Diagnosis Comments SARS-COV-2 BY MOLECULAR Routine 07/16/2021 8:37 AM CDT Encounter for screening for COVID-19 documented in this encounter Results * SARS-COV-2 BY MOLECULAR (07/16/2021 8:37 AM CDT) SARSCOV2 NOT DETECTED (Referen ce Range for this test is Not Detected ) [facility] THERMOFISHER FAST DX 07/17/2021 6:22 AM CDT [facility] Comment:This test was perfor med by a RT-PCR method. Other Non-Phlebotomy Collection / Unknown 07/16/2021 8:37 AM CDT 07/16/2021 10:32 AM CDT Narrative [facility] - 07/17/2021 6:22 AM CDT Authorized Fact Sheets about this test for providers and patients are available at: https://www.fda.gov/medical-devices/asfcnqbvn-kfwypxyqcc-ctuaxph-devices/emergen -us e-authorizations us Louie Purdy MD MICROBIOLOGY - GENERAL ORDERAB LES Final Result [facility] [address] [place] [address], documented in this encounter Visit Diagnoses Diagnosis [...] 19 07/01/2022 08/19/2022 08/29/2022 12:1 6 AM CUSTODIAL SERVICES MANAGER COVID - 19 10/07/2022 12/23/2022 01/02/2023 12:1 6 AM CDT documented as of this encounter Care Teams Felt Cutting Machine Operator Relationship Specialty Start Date End Date Trupti Spence MD PCP - General Family Medicine 02/19/16 11/23/22 Provider, Unknown UNKNOWN PCP - General 11/25/22 12/03/22 Evette Melo MD UNKNOWN PCP - General Family Medicine 12/04/22 04/12/24 Norma May MD [address] [place] [address] PCP - General Family Medicine 04/13/24 Meryl Martinez APRN, MORTGAGE ADVISOR #2 [facility], [address] [place] [address] Nurse Practitioner Cardiology 07/25/24 documented as of this encounter
--- OUTSIDE RECORDS SUMMARY | 2025-03-13 09:17 | XMS_ITS | Encounter Summary ---
Author Organization [facility] Address [address] [place] [address] Phone Care Team Providers Care Missile Control Pilot Name Role Phone Norma May MD Primary Care Provider [phone]- [phone] Meryl Martinez APRN, TOOL PLANER SET UP OPERATOR Unavailable +1- [phone] Encounter Details Date Type Department Care Team (Late st Contact Info) Description 01/31/2025 Lab Requisition [facility] 1 [place] [address] Louie Purdy MD [address] [place] [address] [facility] [address] [place] [address] Hypothyroidism, unspecified; Hyperlipidemia, unspecified; Vitamin D deficiency, unspecified Social History Tobacco Use Types Packs/Day Years Used Date Smoking Tobacco: Never Smokeless Tobacco: Never Alcohol Use Standard Drinks/Week Comments No 0 (1 standard drink = 0.6 oz pur e alcohol) [facility] Utilities Answer Date Recorded In the past 12 months has [employer] electric, gas, oil, or water company threatened [...] declined 06/08/2024 How often do you attend hoahaoism or roman catholic serv ices? Patient declined 06/08/2024 Do you belong to any clubs o r organizations such as hoahaoism groups, unions, fraternal or athletic groups, or [...] medical care, and heating? Patient declined 06/08/2024 [facility] Occupat ional [facility] - Occupational Stress Questionnaire Answer Date [...] any time in the past 12 m [facility], were you homeless or living in a senior care (including now)? Patient declined 06/08/2024 Comments No [...] Visit [facility] - [facility]iology - [place] #[address] [place] [address] Liss oJ APRN, TOOL PLANER SET UP OPERATOR [address] [place] [address] documented as of this encounter Procedures Procedure Name Priority Date/Time Associated Diagnosis Comments VITAMIN D, 25 HYDROXY TOTAL Routine 01/31/2025 7:43 AM CDT Hypothyroidism, unspecified Hyperlipidemia, unspecified Vitamin D deficiency, unspecified HEMOGLOBIN A1C W/ ESTIMATED GLUCOSE Routine 01/31/2025 7:43 AM CDT Hypothyroidism, unspecified Hyperlipidemia, unspecified Vitamin D deficiency, unspecified CBC WITH AUTO DIFFERENTIAL Routine 01/31/2025 7:43 [...] unspecified Hyperlipidemia, unspecified Vitamin D deficiency, unspecified documented in this encounter Results * (ABNORMAL) CBC WITH AUTO DIFFERENTIAL (01/31/2025 7:43 AM CDT) WBC 8.37 4.00 - 12.00 10(3)/mcL 01/31/2025 8:55 AM CDT [facility] RBC 4.02 3.80 - 5.30 10(6)/mcL 01/31/2025 8:55 AM CDT [facility] HEMOGLOBIN (HGB) 12.6 12.0 - 15.8 g/dL 01/31/2025 8:55 AM CDT [facility] HEMATOCRIT (HCT) 38.8 36.0 - 47.0 % 01/31/2025 8:55 AM CDT [facility] MCV 96.5(H) 82.0 - 96.0 fL 01/31/2025 8:55 AM CDT [facility] MCH 31.3 26.0 - 34.0 pg 01/31/2025 8:55 AM CDT [facility] MCHC 32.5 31.0 - 36.0 g/dL 01/31/2025 8:55 AM CDT [facility] PLATELET COUNT 203 140 - 440 10(3)/mcL 01/31/2025 8:55 AM CDT [facility] RDW 12.7 11.8 - 15.5 % 01/31/2025 8:55 AM CDT [facility] MPV 10.6 9.7 - 12.4 fL 01/31/2025 8:55 AM CDT [facility] NEUTROPHILS 63.9 47.0 - 73.0 % 01/31/2025 8:55 AM CDT [facility] LYMPHOCYTES 22.2 18.0 - 42.0 % 01/31/2025 8:55 AM CDT [facility] MONOCYTES 8.6 4.0 - 12.0 % 01/31/2025 8:55 AM CDT [facility] EOSINOPHILS 4.5 0.0 - 5.0 % 01/31/2025 8:55 AM CDT [facility] BASOPHILS 0.8 0.0 - 1.0 % 01/31/2025 8:55 AM CDT [facility] ABSOLUTE NEUTROPHILS 5.34 1.60 - 7.70 10(3)/mcL 01/31/2025 8:55 AM CDT [facility] ABSOLUTE LYMPHOCYTES 1.86 1.30 - 3.20 10(3)/mcL 01/31/2025 8:55 AM CDT [facility] ABSOLUTE MONOCYTES 0.72 0.20 - 1.00 10(3)/mcL 01/31/2025 8:55 AM CDT [facility] ABSOLUTE EOSINOPHIL 0.38 0.00 - 0.40 10(3)/mcL 01/31/2025 8:55 AM CDT [facility] ABSOLUTE BASOPHILS 0.07 0.00 - 0.10 10(3)/mcL 01/31/2025 8:55 AM CDT [facility] NRBC PER 100 WBC 0 02/01/20 8:55 AM CDT [facility] Blood Venipuncture / Unknown 01/31/2025 7:43 AM CDT 01/31/2025 8:51 AM CDT us Louie Purdy MD HEMATOLOGY ORDERABLES Final Re sult Performing Organization Address [facility] Co de Phone Number [facility] [address] [place] [address] * VITAMIN D, 25 HYDROXY TOTAL (01/31/2025 7:43 AM CDT) VITAMIN D, 25 HYDROX 57.2 ng/mL 01/31/2025 9:33 AM CDT [facility] Blood Venipuncture / Unknown 01/31/2025 7:43 AM CDT 01/31/2025 8:51 AM CDT Narrative [facility] - 01/31/2025 9:33 AM CDT Published reference ranges for Vitamin D vary depending on time and place and method of testing, and on patient's age, sex, ethnicity and levels of other measured analytes such as parathormone, calcium and phosphorus. The result should be evaluated in conjunction with clinical findings and suspicions. [place] [facility] Clinical Practice Guidelines: Status Vitamin D levels (ng/mL) Deficient <=20 At risk of inadequacy 21-29 Sufficient 30-100 Centers of Disease Control and Prevention Guidelines: Status Vitamin D levels (ng/mL) Deficient <13 At risk of inadequacy 13-19 Sufficient 20-50 Possibly harmful >50 References: [place] [employer] [facility], 2010 Dietary reference intakes for calcium and vitamin D. [place]: The National Academies Press. Melissa M, Randolph N, Mikel HARRINGTON, et al., Evaluation, treatment, and prevention of Vitamin D deficiency: an Endocrinology Clinical Practice Guideline. JCEM 2011 96: 7 4422-3498. Millie A, Gil C, Kong D, et al., Vitamin D Status: [place], 3827-6438, NCHS data brief, no. 59, MD [place]: National Center for Health Statistics. 2011. Louie Purdy MD CHEMISTRY ORDERABLES Final Res ult Performing Organization Address [facility]/ZIP Co de Phone Number [facility] [address] [place] [address] * THYROID STIMULATING HORMONE (TSH) (01/31/2025 7:43 AM CDT) TSH 1.241 0.300 - 5.000 mIU/L 01/31/2025 9:33 AM CDT [facility] Blood Venipuncture / Unknown 01/31/2025 7:43 AM CDT 01/31/2025 8:51 AM CDT Louie Purdy MD CHEMISTRY ORDERABLES Final Res ult Performing Organization Address City/[facility]/ZIP Co de Phone Number [facility] [address] [place] [address] * THYROXINE (T4) TOTAL (01/31/2025 7:43 AM CDT) T4 6.4 5.0 - 13.0 mcg/dL 01/31/2025 9:33 AM CDT [facility] Blood Venipuncture / Unknown 01/31/2025 7:43 AM CDT 01/31/2025 8:51 AM CDT Loiue Purdy MD CHEMISTRY ORDERABLES Final Res ult Performing Organization Address City/[facility]/ZIP Co de Phone Number [facility] [address] [place] [address] * TRIIODOTHYRININE (T3) FREE (01/31/2025 7:43 AM CDT) FREE T3 2.5 1.6 - 3.9 pg/mL 01/31/2025 3:52 PM CDT [facility] Blood Venipuncture / Unknown 01/31/2025 7:43 AM CDT 01/31/2025 8:51 AM CDT Louie Purdy MD CHEMISTRY ORDERABLES Final Res ult [facility] [address] [place] [address], * HEMOGLOBIN A1C W/ ESTIMATED GLUCOSE (01/31/2025 7:43 AM CDT) Pathologist [facility] HGB-A1C 5.4 4.0 - 6.0 % 01/31/2025 9:11 AM CDT [facility] Est Average Glucose 108.3 mg/dL 01/31/2025 9:11 AM CDT [facility] Blood Venipuncture / Unknown 01/31/2025 7:43 AM CDT 01/31/2025 8:51 AM CDT Narrative [facility] - 01/31/2025 9:11 AM CDT HEMOGLOBIN A1C: DIABETIC PATIENTS: WELL-CONTROLLED: 6.2 - 7.0 INTERMEDIATE WELL-CONTROLLED: 7.0 - 9.0 POORLY-CONTROLLED: >9.0 Specimens containing greater than 5% of Hemoglobin F may result in lower than expected % HbA1C results. us Louie Purdy MD CHEMISTRY ORDERABLES Final Res ult [facility] [address] [place] [address] * (ABNORMAL) LIPID PANEL (01/31/2025 7:43 AM CDT) CHOLESTEROL 170 <200 mg/dL 01/31/2025 10:11 AM CDT [facility] TRIGLYCERIDES 43 <150 mg/dL 01/31/2025 10:11 AM CDT [facility] HDL CHOLESTEROL 68 >40 mg/dL 10:11 AM CDT [facility] LDL 93 <130 mg/dL 01/31/2025 10:11 AM CDT [facility] VLDL 9(L) 10 - 50 mg/dL 01/31/2025 10:11 AM CDT [facility] CHOL/HDL RATIO 2.5 0.0 - 4.4 01/31/2025 10:11 AM CDT [facility] NON-HDL CHOLESTEROL 102 <130 mg/dL 01/31/2025 10:11 AM CDT [facility] Blood Venipuncture / Unknown 01/31/2025 7:43 AM CDT 01/31/2025 8:51 AM CDT us Louie Purdy MD CHEMISTRY ORDERABLES Final Res ult [facility] [address] [place] [address] * (ABNORMAL) CMP (COMPREHENSIVE METABOLIC PANEL) (01/31/2025 7:43 AM CDT) SODIUM 144 136 - 145 mmol/L 01/31/2025 9:17 AM CDT [facility] POTASSIUM 3.5 3.5 - 5.1 mmol/L 01/31/2025 9:17 AM CDT [facility] CHLORIDE 99 98 - 107 mmol/L 01/31/2025 9:17 AM CDT [facility] CO2, VENOUS 34(H) 22 - 30 mmol/L 01/31/2025 9:17 AM CDT [facility] ANION GAP 14.5 <18.0 mmol/L 01/31/2025 9:17 AM CDT [facility] GLUCOSE 102(H) 70 - 99 mg/dL 01/31/2025 9:17 AM CDT [facility] BUN 45(H) 10 - 20 mg/dL 01/31/2025 9:17 AM CDT [facility] CREATININE, BLOOD 1.84(H) 0.60 - 1.00 mg/dL 01/31/2025 9:17 AM CDT [facility] BUN/CREATININE RATIO 24(H) 12 - 20 ratio 01/31/2025 9:17 AM CDT [facility] TOTAL PROTEIN 6.7 6.0 - 8.0 g/dL 01/31/2025 9:17 AM CDT [facility] ALBUMIN 3.5 3.5 - 5.0 g/dL 01/31/2025 9:17 AM CDT [facility] A/G RATIO 1.1 1.0 - 2.2 01/31/2025 9:17 AM CDT [facility] CALCIUM 9.4 8.7 - 10.5 mg/dL 01/31/2025 9:17 AM CDT [facility] T BILI 0.5 0.2 - 1.2 mg/dL 01/31/2025 9:17 AM CDT [facility] SGOT (AST) 22 <43 U/L 01/31/2025 9:17 AM CDT [facility] SGPT (ALT) 13 <56 U/L 01/31/2025 9:17 AM CDT [facility] ALKALINE PHOSPHATASE 60 40 - 150 U/L 01/31/2025 9:17 AM CDT [facility] GFR, ESTIMATED 28(L) >=60 01/31/2025 9:17 AM CDT [facility] Comment: Creatinine Clearance is the preferred criteria for selecting drug dose adjustments in renally impaired patients. The GFR is provided as additional pertinent clinical information. GFR is reported in mL/min/1.73 sq m. Calculation based on the Chronic Kidney Disease Epidemiology Collaboration (CKD- EPI) equation refit without adjustment for race. GFR, EST. 32(L) >=60 025 9:17 AM CDT [facility] GFR, EST. NONAFRICAN 27(L) >=60 01/31/2025 9:17 AM CDT [facility] Blood Venipuncture / Unknown 01/31/2025 7:43 AM CDT 01/31/2025 8:51 AM CDT us Louie Purdy MD CHEMISTRY ORDERABLES Final Res ult [facility] [address] [place] [address] documented in this encounter Visit Diagnoses Diagnosis Hypothyroidism, unspecified Hyperlipidemia, unspecified Vitamin D deficiency, unspecified documented in this encounter Care Teams Missile Control Pilot Relationship Specialty Start Date End Date Norma May MD [address] [place] [address] PCP - General Family Medicine 04/13/24 Meryl Martinez APRN, TOOL PLANER SET UP OPERATOR [address] [facility], [address] [place] [address] Nurse Practitioner Cardiology 07/25/24 documented as of this encounter
--- OUTSIDE RECORDS SUMMARY | 2025-03-13 09:17 | XMS_ITS | Encounter Summary ---
Author Organization [facility] Address [address] [place] [address] Phone Care Team Providers Care Merchandise Collector Name Role Phone Trupti Spence MD Primary Care Provider Provider, Unknown Primary Care Provider Unavaila Evette Persaud MD Primary Care Provider Unavailable Norma May MD Primary Care Provider Meryl Martinez APRN, DIRECTOR HRIS Unavailable [phone]- [phone] Encounter Details Date Type Department Care Team (Late st Contact Info) Description 09/10/2021 [facility] 1 [place] [id number] Louie Purdy MD [address] [place] [address] [facility] [address] [place] [address] Social History Tobacco Use Types Packs/Day Years [...] Cardiology [facility] #[address] [place] [address] Sandro Liss Louise, IMAGING AIDE, DIRECTOR HRIS [address] [place] [address] documented as of this encounter Procedures Procedure Name Priority Date/Time Associated Diagnosis Comments SARS-COV-2 BY MOLECULAR Routine 09/10/2021 8:02 AM PRESSURE TEST OPERATOR documented in this encounter Results * SARS-COV-2 BY MOLECULAR (09/10/2021 8:02 AM PRESSURE TEST OPERATOR) SARSCOV2 NOT DETECTED (Referen ce Range for this test is Not Detected ) [facility] THERMOFISHER FAST DX 09/11/2021 11:46 PM PRESSURE TEST OPERATOR [facility] Comment:This test was perfor med by a RT-PCR method. Other Non-Phlebotomy Collection / Unknown 09/10/2021 8:02 AM PRESSURE TEST OPERATOR 09/10/2021 10:35 AM PRESSURE TEST OPERATOR Narrative [facility] - 09/11/2021 11:46 PM PRESSURE TEST OPERATOR Authorized Fact Sheets about this test for providers and patients are available at: https://www.fda.gov/medical-devices/altumaolt-hafymjjhfo-vteymvi-devices/emergen -us e-authorizations us Louie Purdy MD MICROBIOLOGY - GENERAL ORDERAB LES Final Result [facility] [address] [place] [address], documented in this encounter Visit Diagnoses Not [...] 19 07/01/2022 08/19/2022 08/29/2022 12:1 6 AM PRESSURE TEST OPERATOR COVID - 19 10/07/2022 12/23/2022 01/02/2023 12:1 6 AM CDT documented as of this encounter Care Teams Merchandise Collector Relationship Specialty Start Date End Date Trupti Spence MD PCP - General Family Medicine 02/19/16 11/23/22 Provider, Unknown UNKNOWN PCP - General 11/25/22 12/03/22 Evette Melo MD UNKNOWN PCP - General Family Medicine 12/04/22 04/12/24 Norma May MD [address] [place] [address] PCP - General Family Medicine 04/13/24 Meryl Martinez APRN, DIRECTOR HRIS [address] [facility], [address] [place] [address] Nurse Practitioner Cardiology 07/25/24 documented as of this encounter
--- OUTSIDE RECORDS SUMMARY | 2025-03-13 09:17 | XMS_ITS | Encounter Summary ---
Author Organization [facility] Address [address] [place] [address] Phone Care Team Providers Care Cna Hha Name Role Phone Matthew Bansal MD Unavailable Norma Osorio NP Unavailable [phone] Encounter Details Date Type Department Care Team (Late st Contact Info) Description 02/04/2022 Orders Only [facility] [address] [employer] [place] [address] Scanning, Provider Social History Tobacco [...] on file Legal Sex Female 3:53 AM [employer] Gender Identity Not on file Sexual Orientation Not on file documented as of this encounter Plan of Treatment Not on file documented as of this encounter Procedures Procedure Name Priority Date/Time Associated Diagnosis Comments SCAN - LABS 02/04/2022 documented in this encounter Results * SCAN - LABS (02/04/2022) us Provider Scanning Final Result documented in this encounter Visit Diagnoses Not on filedocumented in this encounter Care Teams Cna Hha Relationship Specialty [place] [address] [address] Consulting Physician Endocrinology Diabetes & Metabolism 12/05/18 [place] [address] [address] [address] Nurse Practitioner Internal Medicine 12/05/18 documented as of this encounter
--- OUTSIDE RECORDS SUMMARY | 2025-03-13 09:17 | XMS_ITS | Data Portability ---
Author Organization [facility], Main Office Address 1 [place] [address] Assessment No assessment recorded. Plan of Treatment Reminders Order Date Submit Date Provider Last Modified By Organization Details Last Modified Time Details Appointments None record ed. Lab None record ed. Referral None record ed. Procedures None record ed. Surgeries None record ed. Imaging None record ed. Medication Orders None record ed. Patient TargetsNo targets recorded. Patient InstructionsNo instructions recorded. Reason for Referral None Reported. Problems Name Problem SNOMED Code Status Onset Date Resolution Date Notes Provider Name and Address Organization Details Recorded Time Impacted cerumen of bilateral ears 07268688808414 08 Active 2022 Erlin Lebron MD [address] [place] [address], [phone] [facility] 3 14:42:56 Problem Notes None recorded. Medical Equipment None Reported. Allergies Allergen ID Allergen Name Allergen Category Reaction Reaction Severity Criticality Documentation Date Start Date Code Code System Note Provider Name and Address Organization Details Recorded Time 94116 lactose food,medi cation Not available Not available Not available 01/28/2023 6211 RxNorm Maribell Olivier CMA null, [facility] 3 14:17:54 Medications Name Sig Start Date Stop Date Status Note LastModified by Organization Details LastModified Time amlodipine 10 mg tablet active Not Available Not Available Not Available methimazole 5 mg tablet active Not Available Not Available Not Available fluticasone propionate 50 mcg/actuation nasal spray,suspension active Not Available Not Avail able Not Available Oyster Shell Calcium-Vitamin D3 500 mg-5 mcg (200 unit) tablet active Not Available Not Avai lable Not Available escitalopram 10 mg tablet active Not Available Not Available No t Available escitalopram 5 mg tablet active Not Available Not Available Not Available Artificial Tears (polyvinyl alcohol/povidone) 0.5 %-0.6 % eye drops active Not Available Not Available Not Available valsartan 320 mg-hydrochlorothi azide 25 mg tablet active Not Available Not Available Not Available cholecalciferol (vitamin D3) 50 mcg (2,000 unit) tablet active Not Available Not Available Not Available Nuedexta 20 mg-10 mg capsule active Not Available Not Available N ot Available Vitals Date Recorded Body weight Body mass index (BMI) Body height Body temperature Provider Name and Address Organization Details Last Updated DateTime 01/28/2023 35431.22 g 32.1 kg/m2 160.02 cm 97.7 [degF] Maribell Olivier CMA [place] [facility] [employer] 01/28/2023 14:17:32 Social History None recorded. Functional Status Question Answer Note LastModified by Organization D etails LastModified Time What is your level of alcohol consumption? None Information not available 01/28/2023 Mental Status None recorded. Family History Nothing Reported. Medical History Condition Response MRSA N ALLERGIES/HAYFEVER N BACK INJECTIONS N LUNG DISEASE/DISORDER N ESRD N HISTORY OF DRUG ABUSE N INSOMNIA N RADIATION / CHEMOTHERAPY N COPD N HIGH CHOLESTEROL / HYPERLIPIDEMIA N HYPERTHYROIDISM N PVD N BLOOD DISEASES N EAR OR HEARING PROBLEMS N HYPOTHYROIDISM N SHINGLES N BACK / NECK PROBLEMS N DEPRESSION (INCLUDING POST ) Y HAVE YOU BEEN HOSPITALIZED OR SEEN IN [facility] ER IN THE PAST YEAR ? N FAILED BACK SYNDROME N STROKE/TIA N POLYCYSTIC OVARIES N OBESITY N ANEURYSM N HISTORY WITH COMPLICATIONS WITH ANESTHES IA ? N Do you have Advance directive? N USE OF BLOOD THINNERS N NO SIGNIFICANT PAST MEDICAL HISTORY N DIABETES, TYPE N VON WILLIBRAND'S DISEASE N PARATHYROID DISEASE N ENT N SEASONAL ALLERGIES N HEARTBURN / REFLUX N POST LAMINECTOMY SYNDROME N HEPATITIS / LIVER DISEASE N SLEEP DISORDER N ARTERIAL INSUFFICIENCY N SEIZURES/EPILEPSY N HEADACHES/MIGRAINES N CHF N PACEMAKER N DIZZINESS N HEART DISEASE/HEART PROBLEMS N AIDS/HIV N NEUROPSYCHOLOGICAL N HYPERTENSION Y CANCER: SPECIFY N TOURETTE'S N BLOOD TRANSFUSION N ANESTHESIA COMPLICATIONS N ANEMIA/BLOOD DISORDER N CHRONIC EAR INFECTIONS N ATRIAL FIBRILLATION N AUTOIMMUNE DISEASE N TUBERCULOSIS N Gynecological HistoryNo gynecological history recorded. Obstetrics History GPAL:G 0 P 0 0 0 0 Past Encounters Encounter ID Performer Location Encounter Start Date Encounter Closed Date Diagnosis/Indication Diagnosis SNOMED-CT Code Diagnosis ICD10 Code Diagnosis Note [id number] Erlin Lebron MD [facility] [place] [address] [place] [address] 01/28/2023 14:09:36 01/28/2023 14:47:50 Impacted cerumen of bilateral ears 9070312000 608381 H61.23 Health Concerns Section Related Observation LastModified by Organization Detai ls LastModified Time None Recorded Concern Status LastModified by Organization Details LastModified Time None Recorded Advance Directives Directive None Recorded Payers Encounter Date Sequence Insurance Name Policy Number Policy Pak Covered Member ID Pak Member ID Guarantor Name 01/28/2023 1 [place] Sophie Andrews [id number] Sophie Andrews 01/28/2023 2 [place] Sophie Andrews [id number] Sophie Andrews Notes Date Note Type Note Provider Name and Address Organization Details Recorded Time 01/28/2023 text/html cerumen impaction Erlin Lebron MD [address] [facility], [facility] [address], [place], [address], [place] [facility] 01/28/2023 14:43:17 OBGyn Episode No OBEpisode recorded.
--- OUTSIDE RECORDS SUMMARY | 2025-03-13 09:17 | XMS_ITS | Encounter Summary ---
Author Organization [facility] Address [address] [place] [address] Phone Care Team Providers Care Financial Administrative Assistant Name Role Phone Norma May MD Primary Care Provider [phone]- [phone] Meryl Martinez APRN, ELECTRIC GOLF CART REPAIRERS Unavailable +1- [phone] Encounter Details Date Type Department Care Team (Late st Contact Info) Description 03/12/2025 Lab Requisition [facility] Laboratory Services 1 [place] [address] Louie Purdy MD [address] [place] [address] [facility] [address] [place] [address] Social History Tobacco Use Types Packs/Day Years Used Date Smoking Tobacco: Never Smokeless Tobacco: Never Alcohol Use Standard Drinks/Week Comments No 0 (1 standard drink = 0.6 oz pur e alcohol) [facility] Utilities Answer Date Recorded In the past 12 months has CompanyLoop, gas, oil, or water [employer] threatened to shut off services in your home? Patient declined 06/08/2024 Social Connection and Isolation Panel [NHANES] A nswer Date Recorded In a typical week, how many times do you talk on the phone with family, friends, or neighbors? Patient declined 06/08/2024 How often do you get togethe r with friends or relatives? Patient declined 06/08/2024 How often do you attend sabianist or christianity serv ices? Patient declined 06/08/2024 Do you belong to any clubs o r organizations such as sabianist groups, unions, fraternal or athletic groups, or [...] medical care, and heating? Patient declined 06/08/2024 [facility] - Occupational Stress Questionnaire Answer [...] were you homeless or living in a fdc (including now)? Patient declined 06/08/2024 Comments No [...] Medical Group - Cardiology - [place] [address] [place] [address] Liss Jo, TELEPHOTO ENGINEER, [employer] GOLF C[employer] REPAIR[employer] #[address] [place] [address] documented as of this encounter Procedures Procedure Name Priority Date/Time Associated Diagnosis Comments MMRV PANEL Routine 03/12/2025 6:35 AM CDT MUMPS IGG Routine 03/12/2025 6:35 AM CDT HERPES ZOSTER (VARICELLA) IGG Routine 03/12/2025 6:35 AM CDT RUBEOLA (MEASLES) IGG Routine 03/12/2025 6:35 AM CDT RUBELLA IMMUNITY IGG Routine 03/12/2025 6:35 AM CDT documented in this encounter Results * HERPES ZOSTER (VARICELLA) IGG (03/12/2025 6:35 AM CDT) VARICELLA ZOSTER IGG >8.0 >=1.1 AI 03/12/2025 3:45 PM CDT [facility] Blood Venipuncture / Unknown 03/12/2025 6:35 AM CDT 03/12/2025 8:31 AM CDT Narrative [facility] - 03/12/2025 3:45 PM CDT <= 0.8 Negative. No detectable VZV IgG antibody. 0.9 - 1.0 Equivocal >=1.1 Positive Antibody testing was performed by multiplex flow immunoassay on the BioPlex platform. Louie Purdy MD IMMUNOLOGY ORDERABLES Final Re sult Performing Organization Address City/[facility] Co de Phone Number [facility] [address] [place] [address], [place] * RUBEOLA (MEASLES) IGG (03/12/2025 6:35 AM CDT) MEASLES AB IGG 4.6 >=1.1 AI 03/12/2025 3:45 PM CDT [facility] Blood Venipuncture / Unknown 03/12/2025 6:35 AM CDT 03/12/2025 8:31 AM CDT Narrative [facility] - 03/12/2025 3:45 PM CDT <= 0.8 Negative. No detectable Measles IgG antibody. 0.9 - 1.0 Equivocal >=1.1 Positive Antibody testing was performed by multiplex flow immunoassay on the BioPlex platform. us Louie Purdy MD IMMUNOLOGY ORDERABLES Final Re sult Performing Organization Address [facility] Co de Phone Number [facility] [address] [place] [address], [place] * (ABNORMAL) RUBELLA IMMUNITY IGG (03/12/2025 6:35 AM CDT) RUBELLA IMMUNITY Nonimmune( A) Immune, Invalid 03/12/2025 3:45 PM CDT [facility] RUBELLA IGG QUANT <0.2 >=1.0 AI AI 03/12/2025 3:45 PM CDT [facility] Blood Venipuncture / Unknown 03/12/2025 6:35 AM CDT 03/12/2025 8:31 AM CDT Narrative [facility] - 03/12/2025 3:45 PM CDT Antibody testing was performed by multiplex flow immunoassay on the BioPlex platform. us Louie Purdy MD CHEMISTRY ORDERABLES Final Res ult Performing Organization Address [facility] Co de Phone Number [facility] [address] [place] [address], [place] * (ABNORMAL) MUMPS IGG (03/12/2025 6:35 AM CDT) Mumps Ab IgG <0.2(L) >=1.1 AI 03/12/2025 3:45 PM CDT [facility] Blood Venipuncture / Unknown 03/12/2025 6:35 AM CDT 03/12/2025 8:31 AM CDT Narrative [facility] - 03/12/2025 3:45 PM CDT <= 0.8 Negative. No detectable Mumps IgG antibody. 0.9 - 1.0 Equivocal >=1.1 Positive Antibody testing was performed by multiplex flow immunoassay on the BioPlex platform. Louie Purdy MD IMMUNOLOGY ORDERABLES Final Re sult Performing Organization Address [facility] Co de Phone Number [facility] [address] [place] [address], [place] documented in this encounter Visit Diagnoses Not on filedocumented in this encounter Care Teams Financial Administrative Assistant Relationship Specialty Start Date End Date Norma May MD [address] [place] [address] PCP - General Family Medicine 04/13/24 Meryl Martinez, TELEPHOTO ENGINEER, [employer]PAIR[employer] #2 [facility], [address] [place] [address] Nurse Practitioner Cardiology 07/25/24 documented as of this encounter
--- OUTSIDE RECORDS SUMMARY | 2025-03-13 09:18 | XMS_ITS | Encounter Summary ---
Author Organization [facility] Address [address] [place] [address] Phone Care Team Providers Care Raise Miner Name Role Phone Trupti Spence MD Primary Care Provider Provider, Unknown Primary Care Provider Unavaila Evette Persaud MD Primary Care Provider Unavailable Norma May MD Primary Care Provider Meryl Martinez APRN, LIQUID SUGAR MELTER Unavailable [phone]- [phone] Encounter Details Date Type Department Care Team (Late st Contact Info) Description 02/04/2022 Lab Requisition [facility] Laboratory Services 1 [place] [address] Louie Purdy MD [address] [place] [address] [address] [place] [address] Encounter for screening for COVID-19 Social History [...] Cardiology [facility] #2 [place] [address] Liss Jo APRN, LIQUID SUGAR MELTER [address] [place] [address] documented as of this encounter Procedures Procedure Name Priority Date/Time Associated Diagnosis Comments SARS-COV-2 BY MOLECULAR Routine 02/04/2022 8:49 AM CDT Encounter for screening for COVID-19 documented in this encounter Results * SARS-COV-2 BY MOLECULAR (02/04/2022 8:49 AM CDT) SARSCOV2 NOT DETECTED (Referen ce Range for this test is Not Detected ) [facility] THERMOFISHER FAST DX 02/05/2022 5:[address] [facility] Comment:This test was perfor med by a RT-PCR method. Other Non-Phlebotomy Collection / Unknown 02/04/2022 8:49 AM CDT 02/04/2022 3:[address] [facility] - 02/05/2022 5:53 PM CDT Authorized Fact Sheets about this test for providers and patients are available at: https://www.fda.gov/medical-devices/panrzdlle-agyoxtrarj-lymgnsi-devices/emergen -us e-authorizations us Louie Purdy MD MICROBIOLOGY - GENERAL ORDERAB LES Final Result [facility] [address] [place] [address], documented in this encounter Visit Diagnoses Diagnosis [...] 19 07/01/2022 08/19/2022 08/29/2022 12:1 6 AM PLANT ATTENDANT OR ASSISTANT OPERATOR COVID - 19 10/07/2022 12/23/2022 01/02/2023 12:1 6 AM CDT documented as of this encounter Care Teams Raise Miner Relationship Specialty Start Date End Date Trupti Spence MD PCP - General Family Medicine 02/19/16 11/23/22 Provider, Unknown UNKNOWN PCP - General 11/25/22 12/03/22 Evette Melo MD UNKNOWN PCP - General Family Medicine 12/04/22 04/12/24 Norma May MD [address] [place] [address] PCP - General Family Medicine 04/13/24 Meryl Martinez APRN, LIQUID SUGAR MELTER [address]2 [facility], [address] [place] [address] Nurse Practitioner Cardiology 07/25/24 documented as of this encounter
--- OUTSIDE RECORDS SUMMARY | 2025-03-13 09:18 | XMS_ITS | Encounter Summary ---
Author Organization [facility] Address [address] [place] [address] Phone Care Team Providers Care Gyro Compass Tester Name Role Phone Trupti Spence MD Primary Care Provider [phone] Provider, Unknown Primary Care Provider Unavaila Evette Persaud MD Primary Care Provider Unavailable Norma May MD Primary Care Provider Meryl Martinez APRN, SUPERVISOR CENTRAL SUPPLY Unavailable [phone]- [phone] Encounter Details Date Type Department Care Team (Late st Contact Info) Description 03/25/2022 Lab Requisition [facility] Laboratory Services 1 [place] [address] Louie Purdy MD [address] [place] [address] [address] [place] [address] Encounter for screening for COVID-19 Social History [...] Office Visit [facility] - Cardiology [facility] #2 [place] [address] Liss Jo APRN, SUPERVISOR CENTRAL SUPPLY [address] [place] [address] documented as of this encounter Procedures Procedure Name Priority Date/Time Associated Diagnosis Comments SARS-COV-2 BY MOLECULAR Routine 03/25/2022 8:14 AM CDT Encounter for screening for COVID-19 documented in this encounter Results * SARS-COV-2 BY MOLECULAR (03/25/2022 8:14 AM CDT) SARSCOV2 NOT DETECTED (Referen ce Range for this test is Not Detected ) [facility] THERMOFISHER FAST DX 03/25/2022 7:27 PM CDT [facility] Comment:This test was perfor med by a RT-PCR method. Other No Phlebotomy Charged / Unknown 03/25/2022 8:14 AM CDT 03/25/2022 9:46 AM CDT Narrative [facility] - 03/25/2022 7:27 PM CDT Authorized Fact Sheets about this test for providers and patients are available at: https://www.fda.gov/medical-devices/sjuhvuktf-kqbtloeuco-eaofvpi-devices/emergen -us e-authorizations us Louie Purdy MD MICROBIOLOGY - GENERAL ORDERAB LES Final Result [facility] [address] [place] [address], documented in this encounter Visit Diagnoses Diagnosis [...] 19 07/01/2022 08/19/2022 08/29/2022 12:1 6 AM STUDIO DIRECTOR COVID - 19 10/07/2022 12/23/2022 01/02/2023 12:1 6 AM CDT documented as of this encounter Care Teams Gyro Compass Tester Relationship Specialty Start Date End Date Trupti Spence MD PCP - General Family Medicine 02/19/16 11/23/22 Provider, Unknown UNKNOWN PCP - General 11/25/22 12/03/22 Evette Melo MD UNKNOWN PCP - General Family Medicine 12/04/22 04/12/24 Norma May MD [address] [place] [address] PCP - General Family Medicine 04/13/24 Meryl Martinez APRN, SUPERVISOR CENTRAL SUPPLY #2 [facility], [address] [place] [address] Nurse Practitioner Cardiology 07/25/24 documented as of this encounter
--- OUTSIDE RECORDS SUMMARY | 2025-03-13 09:18 | XMS_ITS | Encounter Summary ---
Author Organization [facility] Address [address] [place] [address] Phone Care Team Providers Care Dinker Name Role Phone Trupti Spence MD Primary Care Provider Provider, Unknown Primary Care Provider Unavaila Evette Persaud MD Primary Care Provider Unavailable Norma May MD Primary Care Provider Meryl Martinez APRN, FULL STACK SOFTWARE DEVELOPER Unavailable [phone]- [phone] Encounter Details Date Type Department Care Team (Late st Contact Info) Description 02/18/2022 Lab Requisition [facility] Laboratory Services 1 [place] [address] Louie Purdy MD [address] [place] [address] [address] [place] [address] Encounter for screening for COVID-19 Social History [...] Visit [facility] - Cardiology [facility] #[address] [place] [address] Liss Jo APRN, FULL STACK SOFTWARE DEVELOPER [address] [place] [address] documented as of this encounter Procedures Procedure Name Priority Date/Time Associated Diagnosis Comments SARS-COV-2 BY MOLECULAR Routine 02/18/2022 8:51 AM CDT Encounter for screening for COVID-19 documented in this encounter Results * SARS-COV-2 BY MOLECULAR (02/18/2022 8:51 AM CDT) SARSCOV2 NOT DETECTED (Referen ce Range for this test is Not Detected ) [facility] THERMO[facility] FAST DX 02/19/2022 10:12 AM CDT [facility] Comment:This test was perfor med by a RT-PCR method. Other Non-Phlebotomy Collection / Unknown 02/18/2022 8:51 AM CDT 02/18/2022 11:28 AM CDT Narrative [facility] - 02/19/2022 10:12 AM CDT Authorized Fact Sheets about this test for providers and patients are available at: https://www.fda.gov/medical-devices/sbjorwsme-rrqbwtbjrk-jggntnv-devices/emergen -us e-authorizations us Louie Purdy MD MICROBIOLOGY - GENERAL ORDERAB LES Final Result [facility] [address] [facility] [place] [address], documented in this encounter Visit Diagnoses Diagnosis [...] 19 07/01/2022 08/19/2022 08/29/2022 12:1 6 AM SALES ENABLEMENT MANAGER COVID - 19 10/07/2022 12/23/2022 01/02/2023 12:1 6 AM CDT documented as of this encounter Care Teams Dinker Relationship Specialty Start Date End Date Trupti Spence MD PCP - General Family Medicine 02/19/16 11/23/22 Provider, Unknown UNKNOWN PCP - General 11/25/22 12/03/22 Evette Melo MD UNKNOWN PCP - General Family Medicine 12/04/22 04/12/24 Norma May MD [address] [place] [address] PCP - General Family Medicine 04/13/24 Meryl Martinez APRN, FULL STACK SOFTWARE DEVELOPER #2 [facility], [address] [place] [address] Nurse Practitioner Cardiology 07/25/24 documented as of this encounter
--- OUTSIDE RECORDS SUMMARY | 2025-03-13 09:18 | XMS_ITS | Encounter Summary ---
Author Organization [facility] Address [address] [place] [address] Phone Care Team Providers Care Alarm Technician Name Role Phone Trupti Spence MD Primary Care Provider [phone] Provider, Unknown Primary Care Provider Unavaila Evette Persaud MD Primary Care Provider Unavailable Norma May MD Primary Care Provider Meryl Martinez APRN, TIP BANDER Unavailable [phone]- [phone] Encounter Details Date Type Department Care Team (Late st Contact Info) Description 02/11/2022 Lab Requisition [facility] Laboratory Services 1 [place] [address] Louie Purdy MD [address] [place] [address] [address] [place] [address] Encounter for screening for COVID-19 Social History [...] Visit [facility] - Cardiology [facility] #2 [place] [address] Liss Jo APRN, TIP BANDER [address] [place] [address] documented as of this encounter Procedures Procedure Name Priority Date/Time Associated Diagnosis Comments SARS-COV-2 BY MOLECULAR Routine 02/11/2022 8:30 AM CDT Encounter for screening for COVID-19 documented in this encounter Results * SARS-COV-2 BY MOLECULAR (02/11/2022 8:30 AM CDT) SARSCOV2 NOT DETECTED (Referen ce Range for this test is Not Detected ) [facility] THERMOFISHER FAST DX 02/11/2022 11:40 PM CDT [facility] Comment:This test was perfor med by a RT-PCR method. Other Non-Phlebotomy Collection / Unknown 02/11/2022 8:30 AM CDT 02/11/2022 11:45 AM CDT Narrative [facility] - 02/11/2022 11:40 PM CDT Authorized Fact Sheets about this test for providers and patients are available at: https://www.fda.gov/medical-devices/olkqfipcp-ooahqrdbmu-vanxghp-devices/emergen -us e-authorizations us Louie Purdy MD MICROBIOLOGY - GENERAL ORDERAB LES Final Result [facility] [address] [facility] [place] [address], documented in this encounter Visit Diagnoses Diagnosis [...] 19 07/01/2022 08/19/2022 08/29/2022 12:1 6 AM GLEASON GEAR GENERATOR COVID - 19 10/07/2022 12/23/2022 01/02/2023 12:1 6 AM CDT documented as of this encounter Care Teams Alarm Technician Relationship Specialty Start Date End Date Trupti Spence MD PCP - General Family Medicine 02/19/16 11/23/22 Provider, Unknown UNKNOWN PCP - General 11/25/22 12/03/22 Evette Melo MD UNKNOWN PCP - General Family Medicine 12/04/22 04/12/24 Norma May MD [address] [place] [address] PCP - General Family Medicine 04/13/24 Meryl Martinez APRN, TIP BANDER #2 [facility], [address] [place] [address] Nurse Practitioner Cardiology 07/25/24 documented as of this encounter
--- OUTSIDE RECORDS SUMMARY | 2025-03-13 09:18 | XMS_ITS | Encounter Summary ---
Author Organization [facility] Address [address] [place] [address] Phone Care Team Providers Care River Tester Name Role Phone Trupti Spence MD Primary Care Provider [phone] Provider, Unknown Primary Care Provider Unavaila Evette Persaud MD Primary Care Provider Unavailable Norma May MD Primary Care Provider Meryl Martinez APRN, ENTRY LEVEL MANAGER Unavailable [phone]- [phone] Encounter Details Date Type Department Care Team (Late st Contact Info) Description 04/08/2022 Lab Requisition [facility] Laboratory Services 1 [place] [address] Louie Purdy MD [address] [place] [address] [address] [place] [address] Encounter for screening for COVID-19 Social History [...] Office Visit [facility] - Cardiology [facility] #2 [place] [address] Liss Jo APRN, ENTRY LEVEL MANAGER #[address] [place] [address] documented as of this encounter Procedures Procedure Name Priority Date/Time Associated Diagnosis Comments SARS-COV-2 BY MOLECULAR Routine 04/08/2022 8:16 AM CDT Encounter for screening for COVID-19 documented in this encounter Results * (ABNORMAL) SARS-COV-2 BY MOLECULAR (04/08/2022 8:16 AM CDT) SARSCOV2 DETECTED( A) (Referenc e Range for this test is Not Detected) [facility] THERMOFISHER FAST DX 04/08/2022 11:45 PM CDT [facility] Comment:This test was perfor med by a RT-PCR method. Other Non-Phlebotomy Collection / Unknown 04/08/2022 8:16 AM CDT 04/08/2022 9:54 AM CDT Narrative [facility] - 04/08/2022 11:45 PM CDT Authorized Fact Sheets about this test for providers and patients are available at: https://www.fda.gov/medical-devices/xeexxbwbw-bpmgshdjnv-oiwowoh-devices/emergen -us e-authorizations Louie Purdy MD MICROBIOLOGY - GENERAL ORDERAB LES Final Result [facility] [address] [place] [address], documented in this encounter Visit Diagnoses Diagnosis Encounter for screening for COVID-19 documented in this encounter Additional Health Concerns Infection Onset Date Last Indicated Resolved Time COVID - 19 07/02/2021 04/08/2022 04/08/2022 11:4 5 PM CDT COVID - 19 Confirmed 04/08/2022 04/08/2022 022 12:16 AM CDT COVID - 19 04/29/2022 06/03/202206/1306/13/2022 12:1 6 AM CDT COVID - 19 06/17/2022 06/17/2022 06/27/2022 12:1 6 AM CDT COVID - 19 07/01/2022 08/19/2022 08/29/2022 12:1 6 AM TELETYPEWRITER OPERATOR COVID - 19 10/07/2022 12/23/2022 01/02/2023 12:1 6 AM CDT documented as of this encounter Care Teams River Tester Relationship Specialty Start Date End Date Trupti Spence MD PCP - General Family Medicine 02/19/16 11/23/22 Provider, Unknown UNKNOWN PCP - General 11/25/22 12/03/22 Evette Melo MD UNKNOWN PCP - General Family Medicine 12/04/22 04/12/24 Norma May MD [address] [place] [address] PCP - General Family Medicine 04/13/24 Meryl Martinez APRN, ENTRY LEVEL MANAGER #2 [facility], [address] [place] [address] Nurse Practitioner Cardiology 07/25/24 documented as of this encounter
--- OUTSIDE RECORDS SUMMARY | 2025-03-13 09:18 | XMS_ITS | Encounter Summary ---
Author Organization [facility] Address [address] [place] [address] Phone Care Team Providers Care Hot Wire Glass Tube Cutter Name Role Phone Trupti Spence MD Primary Care Provider Provider, Unknown Primary Care Provider Unavaila Evette Persaud MD Primary Care Provider Unavailable Norma May MD Primary Care Provider Meryl Martinez APRN, AR MANAGER Unavailable [phone]- [phone] Encounter Details Date Type Department Care Team (Late st Contact Info) Description 02/25/2022 Lab Requisition [facility] Laboratory Services 1 [place] [address] Louie Purdy MD [address] [place] [address] [address] [place] [address] Encounter for screening for COVID-19 Social History [...] Office Visit [facility] - Cardiology [facility] #2 [place] [address] Liss Jo APRN, AR MANAGER #[address] [place] [address] documented as of this encounter Procedures Procedure Name Priority Date/Time Associated Diagnosis Comments SARS-COV-2 BY MOLECULAR Routine 02/25/2022 8:53 AM CDT Encounter for screening for COVID-19 documented in this encounter Results * SARS-COV-2 BY MOLECULAR (02/25/2022 8:53 AM CDT) SARSCOV2 NOT DETECTED (Referen ce Range for this test is Not Detected ) [facility] FAST DX 02/26/2022 3:45 PM CDT [facility] Comment:This test was perfor med by a RT-PCR method. Other Non-Phlebotomy Collection / Unknown 02/25/2022 8:53 AM CDT 02/25/2022 11:38 AM CDT Narrative [facility] - 02/26/2022 3:45 PM CDT Authorized Fact Sheets about this test for providers and patients are available at: https://www.fda.gov/medical-devices/apsmmjobh-xfyxcpemjl-qsuufne-devices/emergen -us e-authorizations us Louie Purdy MD MICROBIOLOGY - GENERAL ORDERAB LES Final Result [facility] [address] [facility] [place] [address], documented in this encounter Visit Diagnoses Diagnosis [...] 19 07/01/2022 08/19/2022 08/29/2022 12:1 6 AM FLOAT NURSE COVID - 19 10/07/2022 12/23/2022 01/02/2023 12:1 6 AM CDT documented as of this encounter Care Teams Hot Wire Glass Tube Cutter Relationship Specialty Start Date End Date Trupti Spence MD PCP - General Family Medicine 02/19/16 11/23/22 Provider, Unknown UNKNOWN PCP - General 11/25/22 12/03/22 Evette Melo MD UNKNOWN PCP - General Family Medicine 12/04/22 04/12/24 Norma May MD [address] [place] [address] PCP - General Family Medicine 04/13/24 Meryl Martinez APRN, AR MANAGER #2 [facility], [address] [place] [address] Nurse Practitioner Cardiology 07/25/24 documented as of this encounter
--- OUTSIDE RECORDS SUMMARY | 2025-03-13 09:18 | XMS_ITS | Encounter Summary ---
Author Organization [facility] Address [address] [place] [address] Phone Care Team Providers Care Commercial Sewing Instructor Name Role Phone Trupti Spence MD Primary Care Provider [phone] Provider, Unknown Primary Care Provider Unavaila Evette Persaud MD Primary Care Provider Unavailable Norma May MD Primary Care Provider Meryl Martinez APRN, EMT DRIVER Unavailable [phone] Encounter Details Date Type Department Care Team (Late st Contact Info) Description 03/04/2022 Lab Requisition [facility] Laboratory Services [address] [place] [address] Louie Purdy MD [address] [place] [address] [address] [place] [address] Encounter for screening for COVID-19 Social History [...] Office Visit [facility] - Cardiology [facility] [address] [place] [id number] Liss Jo APRN, EMT DRIVER [address] [place] [address] documented as of this encounter Procedures Procedure Name Priority Date/Time Associated Diagnosis Comments SARS-COV-2 BY MOLECULAR Routine 03/04/2022 8:31 AM CDT Encounter for screening for COVID-19 documented in this encounter Results * SARS-COV-2 BY MOLECULAR (03/04/2022 8:31 AM CDT) SARSCOV2 NOT DETECTED (Referen ce Range for this test is Not Detected ) [facility] FAST DX 03/05/2022 12:49 AM CDT [facility] Comment:This test was perfor med by a RT-PCR method. Other Non-Phlebotomy Collection / Unknown 03/04/2022 8:31 AM CDT 03/04/2022 10:43 AM CDT Narrative [facility] - 03/05/2022 12:49 AM CDT Authorized Fact Sheets about this test for providers and patients are available at: https://www.fda.gov/medical-devices/adjgtngkm-bsicxtizxa-rtmyesk-devices/emergen -us e-authorizations us Louie Purdy MD MICROBIOLOGY - GENERAL ORDERAB LES Final Result [facility] [address] [place] [address], documented in this encounter Visit Diagnoses Diagnosis [...] 19 07/01/2022 08/19/2022 08/29/2022 12:1 6 AM PICK UP COVID - 19 10/07/2022 12/23/2022 01/02/2023 12:1 6 AM CDT documented as of this encounter Care Teams Commercial Sewing Instructor Relationship Specialty Start Date End Date Trupti Spence MD PCP - General Family Medicine 02/19/16 11/23/22 Provider, Unknown UNKNOWN PCP - General 11/25/22 12/03/22 Evette Melo MD UNKNOWN PCP - General Family Medicine 12/04/22 04/12/24 Norma May MD [address] [place] [address] PCP - General Family Medicine 04/13/24 Meryl Martinez APRN, EMT DRIVER [address] [facility], [address] [place] [address] Nurse Practitioner Cardiology 07/25/24 documented as of this encounter
--- OUTSIDE RECORDS SUMMARY | 2025-03-13 09:18 | XMS_ITS | Encounter Summary ---
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 Gender Identity Not on file Sexual Orientation Not on file documented as of this encounter Plan of Treatment Not on file documented as of this encounter Procedures Procedure Name Priority Date/Time Associated Diagnosis Comments SCAN - LABS 08/05/2022 documented in this encounter Results * SCAN - LABS (08/05/2022) us Provider Scanning Final Result documented in this encounter Visit Diagnoses Not on filedocumented in this encounter Care Teams Hydroponics Grower Relationship Specialty [place] [address] [address] Consulting Physician Endocrinology Diabetes & Metabolism 12/05/18 [place] [address] [address] Nurse Practitioner Internal Medicine 12/05/18 documented as of this encounter
--- OUTSIDE RECORDS SUMMARY | 2025-03-13 09:18 | XMS_ITS | Encounter Summary ---
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 Gender Identity Not on file Sexual Orientation Not on file documented as of this encounter Plan of Treatment Not on file documented as of this encounter Procedures Procedure Name Priority Date/Time Associated Diagnosis Comments SCAN - LABS 02/25/2022 documented in this encounter Results * SCAN - LABS (02/25/2022) us Provider Scanning Final Result documented in this encounter Visit Diagnoses Not on filedocumented in this encounter Care Teams Apartment Community Manager Relationship Specialty [place] [address] [address] Consulting Physician Endocrinology Diabetes & Metabolism 12/05/18 [place] [address] [address] [address] Nurse Practitioner Internal Medicine 12/05/18 documented as of this encounter
== END 2025-03-13 09:04 | disposition home or self-care (01) ==
LOC: ANHBWCAUD 09:05
PROVIDERS: PCP Family Medicine; Visit Provider Family Medicine
DX: Z01.10 Encounter for examination of ears and hearing without abnormal findings (principal)
CPT/HCPCS: 92557; 92567